=== PATIENT | female | born 1985 | race Caucasian/White ===

== ENCOUNTER 2017-11-15 08:31 | Inpatient (IN) | payer OTHER, SELFPAY ==
[2017-11-15] MEDS ORDERED: EPINEPHrine 1 MG/ML AMP ONE (08:38)
[2017-11-15] MEDS ORDERED: EPINEPHrine 1 MG/10 ML Abboject SYRINGE ONE (08:40)
[2017-11-15] MEDS ORDERED: Dexamethasone 10 MG/ML VIAL ONE (08:42)
[2017-11-15 09:15] LABS: BHCG - Serum Negative (NEGATIVE); Pregs Control Background? CLEAR/WHITE (CLR/WHITE); Pregs Control Bar Appear? YES (CONTROL BAR)
[2017-11-15 09:16] LABS: PTT 26.5 SEC (22.9-36.1); Prothrombin Time 13.2 SEC (12.0-14.7)
[2017-11-15 09:24] LABS: ALT (SGPT) 40 U/L (8-55); AST (SGOT) 88 U/L (5-34); Albumin 2.8 g/dL (3.5-5.0); Alkaline Phosphatase 52 U/L (40-150); Anion Gap 17 mmol/L (10-20); BUN (Urea Nitrogen) 32 mg/dL (7.0-18.7); Bilirubin, Total 0.6 mg/dL (0.2-1.2); Calc. Creatinine Clearance 0 mL/min (70-130); Calcium 7.5 mg/dL (7.8-10.44); Carbon Dioxide 18 mmol/L (22-29); Chloride 102 mmol/L (98-107); Estimated GFR-MDRD 26; Globulin 4.8 g/dL (2.4-3.5); Glucose 139 mg/dL (70-105); Potassium 3.9 mmol/L (3.5-5.1); Protein, Total 7.6 g/dL (6.0-8.3); Sodium 133 mmol/L (136-145)
[2017-11-15 09:37] LABS: Anisocytosis SLIGHT = 6-15 cells (100X) (0-5/hpf); Band 43 % (5-11); Hemoglobin 12.2 g/dL (12.0-16.0); Lymphocytes 24 % (21-51); MDiff Complete? YES; Mean Corpuscular HGB CONC 32.2 g/dL (32.0-36.0); Mean Corpuscular Hemoglobin 29.8 pg (27.0-31.0); Mean Corpuscular Volume 92.6 fl (81.0-99.0); Metamyelocyte 2 % (0-0); Monocytes 2 % (0-10); Neutrophil 28 % (42-75); Ovalocytes SLIGHT = 2-5 cells (100X) (0-1/hpf); PLT Morphology Comment Appears Decreased; Platelet Count 96 thou/uL (130-400); RBC Distribution Width 15.6 % (11.5-14.5); Red Blood Cell (RBC) Count 4.09 mill/uL (4.20-5.40); Reflex for Review?? YES; White Blood Cell (WBC) Count 3.5 thou/uL (4.8-10.8)
--- NOTE | 2017-11-15 09:37 | RAD ---
CHEST 1 VIEW: Date: 11/15/17 HISTORY: Cough. COMPARISON: None. FINDINGS: Lungs are clear. No pneumothorax or effusion. Cardiac silhouette and mediastinal contours within norm al limits. No acute osseous abnormality. IMPRESSION: No acute intrathoracic abnormality. POS: C
[2017-11-15] MEDS ORDERED: Morphine 4 MG/ML VIAL ONE (10:17)
[2017-11-15] MEDS ORDERED: Clindamycin/D5W 900 mg/50 ml Premix Bag ONE (10:40)
[2017-11-15] MEDS ORDERED: Dexmedetomidine 200 MCG/2 ML VIAL ONE ×2 (11:31→11:34)
[2017-11-15] MEDS ORDERED: Midazolam HCl 2 mg/2 ml Vial ONE (11:31)
[2017-11-15] MEDS ORDERED: Fentanyl 100 MCG/2 ML VIAL ONE (11:31)
[2017-11-15] MEDS ORDERED: Lidocaine Viscous Sol 2% 15 ml UD Cup ONE (11:31)
[2017-11-15] MEDS ORDERED: Oxymetazoline HCl 0.05% ( 15 ML ) ONE (11:34)
[2017-11-15] MEDS ORDERED: Lidocaine 2% Jelly 5 ML TUBE ONE (11:36)
--- NOTE | 2017-11-15 11:51 | CT ---
CT NECK SOFT TISSUES: Date: 11/15/17 HISTORY: 32-year-old female with history of tongue swelling. FINDINGS: Contrast enhanced CT of soft tissue neck obtained. There is extensive edema and swelling of the aryepiglottic folds. There is some swelling also seen in the epiglottis. There is some edema and fluid in the anterior soft tissue neck, as well as the subma ndibular and right inframandibular soft tissues surrounding the right submandibular gland and right s ternocleidomastoid muscle and extending inferiorly all the way to the sternal notch. There is some ed margarita also seen in the anterior aspect of the superior mediastinum. IMPRESSION: Edema seen in the aryepiglottic folds and epiglottis, as well as the anterior and right neck. No sign ificant evidence of other masses or lesions seen. POS: [facility]
[2017-11-15] MEDS ORDERED: CCU Electrolyte Replacement 1 EACH IVPB ONE (12:24)
[2017-11-15] MEDS ORDERED: Ondansetron ODT 4 MG TAB PO PRN (12:24)
[2017-11-15] MEDS ORDERED: Ondansetron HCl/PF 4 MG/2 ML Vial IVP PRN (12:24)
[2017-11-15] MEDS ORDERED: Sedation Protocol FS ONE (12:24)
[2017-11-15] MEDS ORDERED: Bisacodyl 10 MG SUPP PR PRN (12:24)
[2017-11-15] MEDS ORDERED: Lacri-Lube Opth Oint 3.5 GM TUBE EA EYE PRN (12:24)
[2017-11-15] MEDS ORDERED: Eucerin (Mineral Oil/Petrolatum,White) 30 gm Jar TOP PRN (12:24)
[2017-11-15] MEDS ORDERED: hydrALAZINE 20 MG/ML VIAL SLOW IVP PRN (12:24)
[2017-11-15] MEDS ORDERED: Magnesium Oxide 400 MG TAB PO PRN ×2 (12:32)
[2017-11-15] MEDS ORDERED: Potassium Phosphate 9 MMOL in Sodium Chloride 0.9% 100 ML IVPB PRN (12:32)
[2017-11-15] MEDS ORDERED: Potassium Phosphate 15 MMOL in Sodium Chloride 0.9% 250 ML 250 ML IV PRN (12:32)
[2017-11-15] MEDS ORDERED: Potassium Chloride 20 MEQ TAB PO PRN (12:32)
[2017-11-15] MEDS ORDERED: CCU ELECTROLYTE REPLACEMENT PROTOCOL FS PRN (12:32)
[2017-11-15] MEDS ORDERED: Potassium Chloride 40 MEQ in Premix Bag 1 BAG IVPB PRN (12:32)
[2017-11-15] MEDS ORDERED: Magnesium 2 GM/NS 0.9% 100 ML 2 GM in Premix Bag 1 BAG IVPB PRN (12:32)
[2017-11-15] MEDS ORDERED: Potassium Phosphate 12 MMOL in Sodium Chloride 0.9% 250 ML 250 ML IV PRN (12:32)
[2017-11-15] MEDS ORDERED: Potassium Chloride 40 MEQ in Sodium Chloride 0.9% 250 ML 250 ML IVPB PRN (12:32)
[2017-11-15] MEDS ORDERED: DISCONTINUE PREVIOUS NARCOTIC PAIN MEDICATIONS AND BENZODIAZEPINES FS SCH (12:33)
[2017-11-15] MEDS ORDERED: Fentanyl CADD 250 ML IVPB SCH (12:33)
[2017-11-15] MEDS ORDERED: Fentanyl BOLUS 250 ML IVPB PRN (12:33)
[2017-11-15] MEDS ORDERED: Morphine 2 MG/ML SYRINGE SLOW IVP PRN (12:37)
[2017-11-15] MEDS ORDERED: Acetaminophen 650 MG/20.3 ML UDCUP PO PRN (12:38)
--- NOTE | 2017-11-15 12:39 | HP ---
DATE OF ADMISSION: 11/15/2017 PRIMARY CARE PHYSICIAN: Dr. Chacon. PRIMARY 3D ARTIST: Dr. Mathew. CHIEF COMPLAINT: Tongue swelling. HISTORY OF PRESENT ILLNESS: Patient is a 32-year-old female with systemic lupus erythematosus on pre dnisone 5 mg daily for the last one and a half months, presented to the emergency room at [facility] ER with above complaints. Over the last one week, the patient has upper respiratory tract infection symptoms. She was started on some antibiotics. She is unable to recall the name. The last dose of antibiotic was yesterday. She was also given some hydrocodone by her primary care physician, which she has taken in the past. Patient had difficulty swallowing the hydrocodone and thought that the pill was stuck in her throat f or which she was evaluated in the emergency room around 1:00 a.m. earlier today. She was discharged home with a diagnosis of pharyngitis and was advised to continue with antibiotics. She returned to [facility] emergency room again with worsening tongue swelling along with some nausea. She denies any fever, chills, or sick contacts. No recent changes in her medications except for antibiotics and hydrocodo ne reported. No similar symptoms in the past. In the emergency room at [place], her initial vital signs showed temperature 97.2, respirations 20, pulse rate of 105, blood pressure of 87/57 with O2 saturation 97% on room air. She received Solu-Med rol 80 mg with Pepcid, Benadryl, and subcutaneous 0.3 mg epinephrine around 4 to 4:30 a.m. and was di scharged home on prednisone. Due to her worsening symptoms, she presented at this facility. Her tem perature on ER arrival was 99.7 with respiration of 24, pulse rate in the 120s to 130s with blood pre ssure of 90/62 with O2 saturation 97% on room air. She was evaluated by Dr. Stout, ENT on an emerge nt basis and the plan is to take her for emergent intubation in the OR. PAST MEDICAL HISTORY: Systemic lupus erythematosus followed by Dr. Mathew. Patient was diagnosed around 1-1/2 months ago. She is currently on prednisone 5 mg a day. PAST SURGICAL HISTORY: Reviewed with the patient and none. ALLERGIES: No known drug allergies. CURRENT HOME MEDICATIONS: Prednisone 5 mg daily. SOCIAL HISTORY: No current use of smoking or drug use. Patient drinks alcohol socially. FAMILY HISTORY: Negative for heart disease or malignancies. REVIEW OF SYSTEMS: Cannot be reliably obtained from the patient due to the emergency physician. Maty guzman is leaving for the OR now. PHYSICAL EXAMINATION: VITAL SIGNS: As discussed above. GENERAL: A 32-year-old female, appropriate for her age, in mild distress due to above. HEENT: Head atraumatic, normocephalic. Sclerae are anicteric. Moist mucous membranes. Oral examin ation currently done by Dr. Stout. NECK: Supple. There is questionable stridor. No JVD. LUNGS: Showed scattered rhonchi. No significant wheezing or rales. HEART: S1, S2 present. Tachycardic, no murmurs, rubs or gallops. ABDOMEN: Soft, nontender, bowel sounds present. EXTREMITIES: No edema or calf tenderness. NEUROLOGIC: Grossly nonfocal, moves all 4 extremities. PSYCHIATRY: Alert, awake, oriented x3. SKIN: Warm and dry. LYMPH NODES: No palpable lymph nodes in the neck. PERIPHERAL VASCULAR: Radial pulses palpable bilaterally. MUSCULOSKELETAL: No joint swelling or tenderness. LABORATORY AND X-RAY FINDINGS: 1. CBC showed WBC 3.5 with hemoglobin 12.2, hematocrit 37.9, platelet count of 96, bandemia of 43. 2. PT, INR, PTT normal range. Lactic acid on admission was 3.9. CRP 6.25, albumin 2.8. test was negative. Sodium was 133, potassium 3.9, chloride 102, bicarbonate 18, BUN 32, creatinine 2 .17. Her creatinine in July was 0.79. 3. Blood cultures have been sent. Please note that the blood cultures were not done before antibiot ics. 4. Chest x-ray by my review was negative for infiltrate. CT of the neck with contrast showed edema of the neck with swelling of the epiglottis and aryepiglottic folds. Official report pending at this time. 5. Telemetry monitoring by my review showed sinus tachycardia. IMPRESSION AND PLAN: 1. Severe upper respiratory tract swelling requiring emergent intubation. Possibilities include inf ectious versus inflammatory. Questionable angioedema. 2. Sepsis with acute organ dysfunction. 3. Acute kidney injury. 4. Metabolic acidosis/lactic acidosis. 5. Mild hyponatremia. 6. Systemic lupus erythematosus, on chronic steroids. 7. Leukopenia. 8. Thrombocytopenia. PLAN: The patient will be monitored in the Intensive Care Unit. She is on her way to OR for emergen t intubation. We will continue steroids with H2 blockers and steroids. Empiric antibiotics. Labs o n a daily basis. Repeat lactic acid later today. Plan of care was discussed with the patient and the at the bedside. Again, the limited histo ry was available due to emergent situation.
--- NOTE | 2017-11-15 12:42 | CON ---
DATE OF CONSULTATION: 11/15/2017 REASON FOR CONSULTATION: Swelling and ecchymosis of the tongue and swelling in her throat. CONSULTING PHYSICIAN: Dr. Sterling, ER physician. HISTORY OF PRESENT ILLNESS: Ms. Otto is a 32-year-old female who was in relatively good health. She had some complaints of upper respiratory tract infection and was evaluated yesterday and given a prescription for medicine, but had not started taking it. Woke up early in the morning with pain in her legs and decided to take hydrocodone that she was given. The hydrocodone pill felt like it got stuck in her throat and continued to be a problem. She presented to the ER in [place] and was evaluated and sent home without any intervention. She went home and continued to have things get worse and started developing swelling of her tongue. She then presented again to the ER who evaluated and gave her a shot of epinephrine and some Solu-Medrol. They felt like she improved and they sent her home again and now she presents to the [facility] ER with worsening symptoms. She is having difficulty swallowing, increased swelling of her tongue and difficulty talking. I was asked to evaluate her for possible angioedema of her airway. She has been recently diagnosed with systemic lupus. She has not had any fever. She has not had any reactions similar to this in the past and has not had any other complaints. Please see her ER note for further details of her past medical history and review of systems, it was reviewed on this date. PHYSICAL EXAMINATION: GENERAL: Well-developed, well-nourished female in moderate distress. HEAD: Normocephalic, atraumatic. EYES: Pupils are equal, round, and reactive to light. Extraocular movements intact. EARS: Tympanic membranes intact, mobile and clear. NOSE: Mucosa is pink and healthy. I did not see any signs of any purulent drainage or infection or obstruction noted. Oral cavity and oropharynx shows extremely ecchymotic and swollen tongue with the right side being greater than left. There is some abrasion on the tongue, probably from rubbing up against her teeth, could not visualize the oropharynx due to the swelling of the tongue. NECK: Without significant adenopathy or mass. Thyroid is palpably normal. LUNGS: Clear to auscultation. HEART: Regular rate without murmur or gallop. Cranial nerves III-XII are intact. Examination of flexible laryngoscope to evaluate the airway, sprayed down the nose with Du-Synephrine, 4% lidocaine. She felt like she was starting to have trouble breathing and started panicking and was able to get her to slow down her breathing and her breathing seemed to improve. I then examined with the flexible laryngoscope, passed through the nose, did not see any evidence of any problems in the nose, nasopharynx looked open and clear, hypopharynx showed extreme amount of ecchymosis and swelling of the epiglottis and supraglottic structures extremely narrowing the airway. The vocal cords were able to be visualized, but the airway was around 0.5 cm in size. All the swelling appeared to be supraglottically . Piriform sinuses showed some ecchymosis and swelling at the base of the tongue, did not appear to be pushed back into the airway. The scope was removed and she tolerated the procedure well. IMPRESSION: Angioedema of the tongue and supraglottic structures with ecchymosis, etiology is not clear whether or not she has just straightforward angioedema or this is a vasculitis or leukemia or possibility of a problem with her lupus. Recommend taking her to the OR and trying to intubate her under controlled circumstances, being prepared to do a tracheostomy if we are unable to secure her airway, then admitted to the ICU for further treatment and workup. LINDA
[2017-11-15] MEDS: Sodium Chloride 0.9% 1,000 ML IV SCH ×3 (12:55→22:19)
[2017-11-15] MEDS: Propofol 1,000 MG/100 ML VIAL IV PRN ×2 (13:05→19:44)
--- NOTE | 2017-11-15 13:09 | OP ---
DATE OF PROCEDURE: 11/15/2017 PREOPERATIVE DIAGNOSIS: Angioedema of the larynx and tongue. POSTOPERATIVE DIAGNOSIS: Angioedema of the larynx and tongue. OPERATIVE PROCEDURE: Endotracheal intubation with a flexible fiberoptic scope. ANESTHESIA: Local MAC. PREOPERATIVE NOTE: Ms. Otto is a 32-year-old female who presented to the ER this morning with difficulty swallowing and breathing, and was found to have a very swollen tongue and on exam, swollen larynx. A CT scan also confirmed swelling and airway appeared to be in jeopardy, although she was not in any acute distress at this time and was opted to take her to the operating room and intubate her before it became worse. OPERATIVE NOTE: The patient placed in a comfortable, supine position with her head elevated. The nose was anesthetized with viscous lidocaine on nasal trumpets. After getting adequate sedative anesthesia, the #6 endotracheal tube was placed through the nose and the scope was passed down through the scope to visualize the airway. Had visualized the swelling of the supraglottic structures and found the vocal cords and went through into the trachea visualizing tracheal rings. The endotracheal tube was then passed over the fiberoptic scope and when the fiberoptic scope was removed, the initial time after removing the scope, the tube did not actually go into the trachea. We then reset and when moved back, she was still doing well without any distress. The scope was passed again and through the vocal cords into the trachea confirmed with tracheal rings and then the tube was then passed through into the trachea, confirmed the endotracheal tube was in the trachea just above the level of elizabeth and the scope was then removed, and the patient was breathing easily, cuff was inflated. She was given some sedation and then transferred to the ICU in stable condition, tolerating the procedure well. ESTIMATED BLOOD LOSS: None. Sponge and needle count correct at the end of the case. MTDD
[2017-11-15 13:40] LABS: Lactic Acid 2.6 mmol/L (0.5-2.2)
[2017-11-15 13:43] LABS: Actual Bicarbonate (HCO3a) 17.7 mEq/L (22-26); Base Excess (BEa) -6.6 mEq/L (0 (+/-) 2.5); CO2 Tension 30.5 mmHg (35.0-45.0); Hematocrit-ABG 29.7 % (36.0-47.0); Hemoglobin (Hb) 9.1 g/dL (12.0-16.0); O2 Tension (PaO2) 147.4 mmHg (80.0-100.0); pH, Arterial 7.38 (7.35-7.45)
[2017-11-15 13:44] LABS: ALV-art Gradient 171.975 (0-20); Puncture Site RBA
[2017-11-15] MEDS: Piperacillin/Tazobactam 3.375 GM in Sodium Chloride 0.9% 100 ML IVPB SCH ×2 (14:48→20:27)
[2017-11-15] MEDS: D5 1/2 NS w/20 mEq KCL 1,000 ML IV SCH ×2 (14:50→22:56)
--- NOTE | 2017-11-15 15:03 | RAD ---
CHEST 1 VIEW: Date: 11/15/17 HISTORY: Tube replacement. COMPARISON: Chest 1 view dated 11/15/17. FINDINGS: Patient is intubated with endotracheal tube tip craniad to the elizabeth 3.0 cm. There is a faint right lower lobe air space opacity and small effusion. Left lung is relatively clear. IMPRESSION: 1. Endotracheal tube tip 3.0 cm craniad to the elizabeth. 2. Small right effusion and air space consolidation. POS: [facility]
[2017-11-15] MEDS: Lorazepam 2 MG/ML VIAL SLOW IVP PRN (16:07)
[2017-11-15] MEDS: Clindamycin/D5W 300 MG/50 ML BAG IVPB SCH ×2 (17:20→23:00)
[2017-11-15] MEDS: diphenhydrAMINE 50 MG/ML VIAL IVP SCH ×2 (18:04→23:00)
[2017-11-15] MEDS ORDERED: Sodium Chloride 0.9% 500 ML IVPB SCH (19:15)
[2017-11-15] MEDS ORDERED: Acetaminophen 1,000 MG in Premix Bag 1 BAG IVPB SCH (19:30)
--- NOTE | 2017-11-15 21:28 | PRG ---
DATE OF SERVICE: 11/15/2017 Ms. Otto is a 32-year-old female. She was seen multiple times in the ER in [place] in the last 24 hours. Initially she presented whic h she calls a pill stuck in her throat and tongue swelling and then she ended up intubated over here with a trip to the operating room with Dr. Stout. She was fiberoptically intubated with a 6 endotracheal tube. We were consulted for assistance in her management. She had significant tongue swelling and upper airway swelling, the etiology is unclear. Apparently, she took an opiate and thought it was stuck in her throat. She was also already on antibiotics and h ad been taking antibiotics for several days, I am told when the symptoms started. PAST MEDICAL HISTORY: Remarkable for recent diagnosis of lupus. She is only on 5 mg of prednisone a day. SOCIAL HISTORY: She is a nonsmoker, nondrinker. ALLERGIES: She has no reported drug allergies. FAMILY HISTORY: Negative for lung disease at an early age. REVIEW OF SYSTEMS: Otherwise, negative. Review of systems is only obtainable via yes and no and her only real complaint was feeling like some food is stuck in her throat and difficulty with tongue swelling. PHYSICAL EXAMINATION: VITAL SIGNS: Heart rate is 120, blood pressure is 95/54, respiratory rate in the 30s. HEENT: Pupils are equal, sclerae is anicteric. NECK: Supple. LUNGS: Clear. HEART: Regular rhythm. S1 and S2 are normal. ABDOMEN: Soft and nontender. EXTREMITIES: Without clubbing, cyanosis, or edema. LABORATORY DATA: White count 3.5, hemoglobin 12.2, platelets 96,000. Sodium 133, potassium 3.9, chl oride 102, bicarbonate 18, BUN 32, creatinine 2.17. AST is 88, ALT is 40, alkaline phosphatase 52. C-reactive protein 6.2, albumin is 2.8. No urinalysis. IMPRESSION: Status post intubation for upper airway edema of unclear etiology. This is an atypical presentation for lupus flare. I do believe a lot of her lab abnormalities can be explained by lupus. Her urine needs to be dipped for protein. She has significant proteinuria. She needs to be worked up for lupus nephritis. She probably will be weanable for a day or two. She will be examined on a daily basis. PLAN: A C3-C4 might be entertained as well as a lupus panel to see if some of this could be lupus re lated. I would think it would be more likely this would be antibiotic related, we are going to ask t he nurse trying to figure out, trying to determine what antibiotic she was taking at home. Critical care time 35 minutes.
[2017-11-15] MEDS: Famotidine/PF 20 mg/2ml Vial SLOW IVP SCH (21:45)
[2017-11-15 22:07] LABS: Bilirubin Small (Negative); Blood, Urine Large (Negative); Clarity CLOUDY (Clear); Glucose, Urine (Dipstick) Negative (Negative); Leukocyte Negative (Negative); Nitrite Negative (Negative); Protein, Urine (Dipstick) 100 mg/dL (Neg-Trace); Specific Gravity, Urine 1.041 (1.002-1.036); pH, Urine 5.5 (5.0-9.0)
[2017-11-16] MEDS: Lorazepam 2 MG/ML VIAL SLOW IVP PRN ×5 (00:33→19:23)
[2017-11-16] MEDS: D5 1/2 NS w/20 mEq KCL 1,000 ML IV SCH (02:37)
[2017-11-16] MEDS: Piperacillin/Tazobactam 3.375 GM in Sodium Chloride 0.9% 100 ML IVPB SCH ×4 (02:37→20:45)
[2017-11-16 04:42] LABS: Band 44 % (5-11); Elliptocytes SLIGHT = 2-5 cells (100X) (0-1/hpf); Hemoglobin 9.8 g/dL (12.0-16.0); Lymphocytes 21 % (21-51); MDiff Complete? YES; Mean Corpuscular HGB CONC 32.5 g/dL (32.0-36.0); Mean Corpuscular Hemoglobin 30.8 pg (27.0-31.0); Mean Corpuscular Volume 94.7 fl (81.0-99.0); Mean Platelet Volume 6.6 fL (7.4-10.4); Neutrophil 35 % (42-75); PLT Morphology Comment Appears Decreased; Platelet Count 71 thou/uL (130-400); RBC Distribution Width 15.4 % (11.5-14.5); Red Blood Cell (RBC) Count 3.18 mill/uL (4.20-5.40)
[2017-11-16 04:58] LABS: ALT (SGPT) 32 U/L (8-55); AST (SGOT) 121 U/L (5-34); Albumin 2.1 g/dL (3.5-5.0); Alkaline Phosphatase 33 U/L (40-150); Anion Gap 15 mmol/L (10-20); BUN (Urea Nitrogen) 35 mg/dL (7.0-18.7); Bilirubin, Total 1.3 mg/dL (0.2-1.2); Calc. Creatinine Clearance 43 mL/min (70-130); Calcium 6.5 mg/dL (7.8-10.44); Carbon Dioxide 15 mmol/L (22-29); Chloride 108 mmol/L (98-107); Estimated GFR-MDRD 27; Globulin 3.5 g/dL (2.4-3.5); Glucose 204 mg/dL (70-105); Magnesium 1.4 mg/dL (1.6-2.6); Phosphorus 4.9 mg/dL (2.3-4.7); Potassium 4.8 mmol/L (3.5-5.1); Protein, Total 5.6 g/dL (6.0-8.3); Sodium 133 mmol/L (136-145)
[2017-11-16 05:14] LABS: Lactic Acid 4.4 mmol/L (0.5-2.2)
[2017-11-16] MEDS: Acetaminophen 650 MG Suppository PR PRN ×3 (05:16→20:30)
[2017-11-16] MEDS: diphenhydrAMINE 50 MG/ML VIAL IVP SCH ×3 (05:16→17:41)
[2017-11-16] MEDS: Clindamycin/D5W 300 MG/50 ML BAG IVPB SCH ×4 (05:17→22:54)
[2017-11-16] MEDS ORDERED: Dextrose 50% Abboject 50 ML SYRINGE SLOW IVP PRN (05:47)
[2017-11-16] MEDS ORDERED: Dextrose 5% in Water 1,000 ML IV PRN (05:47)
[2017-11-16] MEDS: Sodium Chloride 0.9% 1,000 ML IV SCH (07:07)
[2017-11-16 07:11] LABS: Actual Bicarbonate (HCO3a) 14.5 mEq/L (22-26); Base Excess (BEa) -9.7 mEq/L (0 (+/-) 2.5); CO2 Tension 26.1 mmHg (35.0-45.0); Calcium, Ionized 0.9 mmol/L (1.12-1.30); Hematocrit-ABG 28.5 % (36.0-47.0); Hemoglobin (Hb) 8.7 g/dL (12.0-16.0); O2 Tension (PaO2) 86.6 mmHg (80.0-100.0); pH, Arterial 7.36 (7.35-7.45)
[2017-11-16 07:12] LABS: ALV-art Gradient 94.375 (0-20); Puncture Site RBA
[2017-11-16] MEDS: HumaLOG 300 UNITS/3 ML VIAL SC PRN (07:23)
[2017-11-16] MEDS ORDERED: Sodium Bicarbonate 100 MEQ in D5 1/4 NS 1,000 ML IV SCH (08:00)
[2017-11-16] MEDS: Famotidine/PF 20 mg/2ml Vial SLOW IVP SCH ×2 (08:31→20:30)
[2017-11-16] MEDS: Sodium Chloride 0.45% 1,000 ML IV SCH ×2 (09:36→20:45)
--- NOTE | 2017-11-16 10:40 | RAD ---
AP VIEW CHEST: Date: 11/16/17 HISTORY: Ventilator dependent patient. FINDINGS: Comparison made to previous exam from 11/15/17. AP view of chest demonstrates endotracheal tube to be in good position. Some mild areas of patchy den sity seen in the right middle lobe compatible with area of right middle lobe pneumonia. No evidence o f effusion seen. No other acute abnormalities noted. IMPRESSION: Area of patchy air space density in the right middle lobe. Endotracheal tube is in good position. No other acute abnormality seen. POS: [facility]
[2017-11-16] MEDS: Propofol 1,000 MG/100 ML VIAL IV PRN ×2 (11:01→19:23)
[2017-11-16 11:06] LABS: Creatinine, Urine 115.36 mg/dL (47-110)
[2017-11-16 16:59] LABS: Complement-C4 Less than 2.90 mg/dL (15-57)
--- NOTE | 2017-11-16 17:25 | PDOC.EVN ---
Event Note - Event Note Event Note: Discussed case with Dr Mathew. He recommended pulse steroids x 3 days. He will see the patient in AM.
[2017-11-16] MEDS ORDERED: methylPREDNISolone Sod Succ/PF 125 MG/2 ML VIAL IVP SCH (17:30)
[2017-11-16] MEDS: methylPREDNISolone Sod Succ 1,000 MG in Sodium Chloride 0.9% 100 ML IVPB SCH (17:54)
[2017-11-16] MEDS ORDERED: Hydrocortisone Sod Succ/PF 1,000 MG in Sodium Chloride 0.9% 50 ML IVPB SCH (18:00)
--- NOTE | 2017-11-16 20:34 | PDOC.PN ---
- Subjective Encounter Start Date: 11/16/17 Encounter Start Time: 15:30 -: non-verbal Patient seen and examined. On [facility] Vent. No overnight events - Objective Resuscitation Status: Resuscitation Status FULL:Full Resuscitation MAR Reviewed: Yes Vital Signs & Weight: Vital Signs (12 hours) Pulse Resp BP Pulse Ox 11/16/17 18:48 123 H 108/70 11/16/17 18:47 123 H 31 H 99 11/16/17 18:00 34 H 11/16/17 16:58 127 H 32 H 98 11/16/17 16:50 129 H 118/75 11/16/17 16:00 33 H 11/16/17 14:00 32 H 11/16/17 12:33 121 H 98/60 11/16/17 12:00 32 H 11/16/17 10:00 29 H Weight Admit Weight 155 lb 3.287 oz Weight 156 lb 8.451 oz Most Recent Monitor Data Heart Rate from ECG 124 NIBP 97/64 NIBP BP-Mean 76 Respiration from ECG 34 SpO2 99 I&O: 11/15/17 11/16/17 11/17/17 06:59 06:59 06:59 Intake Total 4657 1036 Output Total 1090 537 Balance 3567 499 Result Diagrams: 11/16/17 04:07 11/16/17 04:07 Additional Labs: Accuchecks 11/16/17 11/16/17 11/16/17 16:44 10:18 05:39 POC Glucose 149 H 191 H 217 H 11/16/17 00:25 POC Glucose 182 H Radiology Reviewed by me: Yes (CXR - Rt sided air space densities) EKG Reviewed by me: Yes ([facility]) Dx/Plan - Plan DVT proph w/lovenox, DVT proph w/SCDs IMPRESSION: 1. Angioedema/?Lupus flare 2. Sepsis with acute organ dysfunction. - cultures negative, Resp viral panel negative 3. Acute kidney injury 4. Metabolic acidosis/lactic acidosis. 5. Mild hyponatremia. 6. Systemic lupus erythematosus, on chronic steroids/Leukopenia/ Thrombocytopenia/Proteinuria/Abn LFTs PLAN: * Nephro consulted * AM labs * IV Steroids changed per Dr Mathew * Cont Atbx * Cont H1/H2 blockers * Cont current meds as below Review of Systems - Review of Systems Other: Cannot obtain due to sedation - Medications/Allergies Allergies/Adverse Reactions: Allergies Allergy/AdvReac Type Severity Reaction Status Date / Time No Known Drug Allergies Allergy Verified 11/15/17 16:10 Medications: Current Medications Acetaminophen (Tylenol) 650 mg NM Q4H PRN PRN Reason: Headache/Fever or Pain Last Admin: 11/16/17 20:30 Dose: 650 mg Acetaminophen (Tylenol Elixir) 650 mg PO Q6H PRN PRN Reason: Fever/Mild Pain Albuterol/Ipratropium (Duoneb) 3 ml NEB [id number] [facility] Last Admin: 11/16/17 18:47 Dose: 3 ml Albuterol/Ipratropium (Duoneb) 3 ml NEB [id number] PRN PRN Reason: SOB &/or Wheezing Bisacodyl (Dulcolax) 10 mg NM Q24H PRN PRN Reason: Constipation Clindamycin Phosphate/Dextrose (Cleocin) 300 mg IVPB 0500,1100,1700,2300 [facility] Last Admin: 11/16/17 17:41 Dose: 300 mg Dextrose/Water (Dextrose 50%) 25 gm SLOW IVP PRN PRN PRN Reason: Hypoglycemia Diphenhydramine HCl (Benadryl) 25 mg IVP Q6HR [facility] Last Admin: 11/16/17 17:41 Dose: 25 mg Famotidine (Pepcid) 20 mg SLOW IVP BID [facility] Last Admin: 11/16/17 20:30 Dose: 20 mg Glucagon (Glucagon) 1 mg IM PRN PRN PRN Reason: Hypoglycemia Hydralazine HCl (Apresoline) 10 mg SLOW IVP Q4H PRN PRN Reason: SBP Greater Than 180 Piperacillin Sod/Tazobactam (Sod 3.375 gm/ Sodium Chloride) 100 mls @ 200 mls/ hr IVPB 0200,0800,1400,2000 [facility] Last Admin: 11/16/17 14:54 Dose: 100 mls Potassium Chloride 40 meq/ (Sodium Chloride) 270 mls @ 135 mls/hr IVPB ASDIR PRN PRN Reason: FOR SERUM K+ 2.5 - 3.5 Potassium Chloride 40 meq/ (Device) 100 mls @ 50 mls/hr IVPB ASDIR PRN PRN Reason: FOR SERUM K+ 2.5 - 3.5 Magnesium Sulfate 1 gm/ Sodium (Chloride) 102 mls @ 102 mls/hr IV PRN PRN PRN Reason: MAG LEVEL 1.4 - 2.0 Magnesium Sulfate 2 gm/ Device 100 mls @ 100 mls/hr IVPB ASDIR PRN PRN Reason: MAGNESIUM < 1.4 Potassium Phosphate 9 mmol/ (Sodium Chloride) 103 mls @ 25.75 mls/hr IVPB ASDIR PRN PRN Reason: Phosphate 1.0-1.8 Potassium Phosphate 12 mmol/ (Sodium Chloride) 254 mls @ 63.5 mls/hr IV ASDIR PRN PRN Reason: Serum phosphate 0.5-0.9 Potassium Phosphate 15 mmol/ (Sodium Chloride) 255 mls @ 63.75 mls/hr IV ASDIR PRN PRN Reason: Serum Phos < 0.5 Fentanyl (Fentanyl Cadd) 250 mls @ 0 mls/hr IVPB INF LESLI; Titrate PRN Reason: Protocol Stop: 12/15/17 12:33 Last Admin: 11/16/17 19:39 Dose: 250 mls Fentanyl Citrate (Fentanyl Bolus) 250 mls @ 0 mls/hr IVPB PRN PRN; As Directed PRN Reason: Breakthrough pain Stop: 12/15/17 12:33 Dextrose/Water (D5w) 1,000 mls @ 0 mls/hr IV .Q0M PRN; As Directed PRN Reason: Hypoglycemia Sodium Chloride (1/2 Normal Saline) 1,000 mls @ 75 mls/hr IV .[id number] LESLI Last Admin: 11/16/17 09:36 Dose: 1,000 mls Methylprednisolone Sodium Succinate 1,000 mg/ Sodium Chloride 116 mls @ 232 mls /hr IVPB 1800 LESLI Stop: 11/19/17 18:01 Last Admin: 11/16/17 17:54 Dose: 116 mls Insulin Human Lispro (Humalog) 0 units SC .MILD SLIDING SCALE PRN PRN Reason: Mild Correctional Scale Last Admin: 11/16/17 07:23 Dose: 3 unit Lactulose (Lactulose) 20 gm PO DAILYPRN PRN PRN Reason: Constipation Lorazepam (Ativan) 2 mg SLOW IVP Q2H PRN PRN Reason: Anxiety to achieve Olsen 2-3 Stop: 12/15/17 12:33 Last Admin: 11/16/17 19:23 Dose: 2 mg Magnesium Oxide (Magnesium Oxide) 400 mg PO BIDPRN PRN PRN Reason: FOR SERUM MAG 1.4 - 2.0 Magnesium Oxide (Magnesium Oxide) 800 mg PO PRN PRN PRN Reason: FOR SERUM MAG < 1.4 Mineral Oil/White Petrolatum (Lacri-Lube Ointment) 0 gm EA EYE PRN PRN PRN Reason: Dry Eyes Mineral Oil/White Petrolatum (Eucerin Cream) 0 gm TOP BIDPRN PRN PRN Reason: Dry Skin Miscellaneous Medication (Phos-Nak) 1 pkt PO TIDPRN PRN PRN Reason: FOR PHOS LEVEL 1.0 - 1.8 Miscellaneous Medication (Phos-Nak) 2 pkt PO TIDPRN PRN PRN Reason: FOR PHOS LEVEL 0.5 - 1.0 Morphine Sulfate (Morphine) 2 mg SLOW IVP Q2H PRN PRN Reason: Breakthrough pain Ccu Electrolyte (Replacement Protocol) 0 each FS PRN PRN PRN Reason: FOR ELECTROLYTE REPLACEMENT Ondansetron HCl (Zofran Odt) 4 mg PO Q6H PRN PRN Reason: Nausea/Vomiting Ondansetron HCl (Zofran) 4 mg IVP Q6H PRN PRN Reason: Nausea/Vomiting Pantoprazole Sodium (Protonix) 40 mg PER TUBE 2100 LESLI Last Admin: 11/16/17 20:31 Dose: Not Given Potassium Chloride (K-Dur) 40 meq PO ASDIR PRN PRN Reason: FOR SERUM K+ 2.5 - 3.5 Potassium Chloride (Klor-Con) 40 meq PER TUBE ASDIR PRN PRN Reason: FOR SERUM K+ 2.5-3.5 Propofol (Diprivan) 1,000 mg IV INF PRN; Protocol PRN Reason: TO ACHIEVE OLSEN SCORE 2-3 Stop: 12/15/17 12:33 Last Admin: 11/16/17 19:23 Dose: 1,000 mg Sodium Chloride (Flush - Normal Saline) 10 ml IVF PRN PRN PRN Reason: Saline Flush
[2017-11-16] MEDS ORDERED: Pantoprazole 40 MG GRANULES PACKET PER TUBE SCH (21:00)
--- NOTE | 2017-11-16 23:00 | PRG ---
DATE OF SERVICE: 11/16/2017 SUBJECTIVE: Ms. Otto' tongue swelling appears to be decreasing. I have discussed the above wi th Dr. Stout and he would agree. She still has resting tachycardia. PHYSICAL EXAMINATION: VITAL SIGNS: Blood pressure 108/70, respiratory rate 30, oximetry is 99. LUNGS: Clear. HEART: Regular rhythm. ABDOMEN: Soft. EXTREMITIES: Without asymmetry. Because of resting tachycardia, I think we should order an echocardiogram. Some of this may be because when she awakens, she becomes agitated. I met with her and her mother and answered all their questions today for approximately 20 min utes. LABORATORY DATA: White count 6.9, hemoglobin 9.8, platelets 71,000. Electrolytes: Sodium 133, potassium 4.8, chloride 108, bicarbonate 15, BUN 35, creatinine 2.09, gluc ose 204. Phosphorus was high. Magnesium was low. Bilirubin is 1.3, AST is 121, ALT is 32. Albumin is 2.1. Urinalysis shows some mild proteinuria. PT and PTT are normal yesterday. IMPRESSION: 1. Pancytopenia. I suspect is related lupus. 2. Glossitis versus angioedema. Dr. Pascal found the case report with a lupus flare. I have f ound some articles on glossitis with lupus. She has active sediment in her urine and elevated creati nine. She also has elevated liver enzymes. At 32 years of age, the highest index of suspicion would be that this is all lupus mediated. Dr. Stout will evaluate her tomorrow and evaluate her airway tomorrow. She has a 6-0 endotracheal t ube in, so I would not recommend just cavalierly extuating her. We tried to keep her sedated. We will check an echocardiogram to make sure she does not have evidenc e of pericardial inflammation. The liver enzymes certainly could be related to lupus as well. Imagi ng of her hepatobiliary tree would be reasonable. The ultrasound at bedside tomorrow. Ultrasound im aging of kidneys would also be appropriate that could be done tomorrow. Critical care time 35 minutes, independent of the time spent with the family.
[2017-11-17] MEDS: HumaLOG 300 UNITS/3 ML VIAL SC PRN ×2 (00:12→06:13)
[2017-11-17] MEDS: diphenhydrAMINE 50 MG/ML VIAL IVP SCH ×5 (00:12→23:12)
[2017-11-17] MEDS: Piperacillin/Tazobactam 3.375 GM in Sodium Chloride 0.9% 100 ML IVPB SCH ×4 (02:49→19:36)
--- NOTE | 2017-11-17 03:59 | CON ---
DATE OF CONSULTATION: 11/16/2017 CONSULTING PHYSICIAN: Dr. Valdez REASON FOR CONSULTATION: History of lupus, rule out nephritis. HISTORY OF PRESENT ILLNESS: This is a 32-year-old female with history of lupus on prednisone, came to the hospital with tongue swelling and questionable drug allergy. The patient was on recent antibiotics, not sure which one and planning to check on that. The patient is currently intubated and not able to give a history for me and most of the history was reviewed from the records. The patient had emergent intubation to protect airway and currently seen in ICU. PAST MEDICAL HISTORY: Positive for systemic lupus erythematosus, followed Dr. Mathew, no history of nephritis from the chart. PAST SURGICAL HISTORY: Not known. HOME MEDICATIONS: Prednisone 5 mg p.o. daily. ALLERGIES: No known drug allergies. SOCIAL HISTORY: No smoking, alcohol or drug use, drinking alcohol socially. FAMILY HISTORY: No history of kidney disease. REVIEW OF SYSTEMS: Could not be obtained as the patient is intubated. PHYSICAL EXAMINATION: GENERAL: This is a thin-built female seen in ICU, intubated. VITAL SIGNS: Temperature 98.8, pulse of 120, respiratory 18, blood pressure 98/ 64. HEENT: Intubated. CARDIOVASCULAR: S1, S2 heard. RESPIRATORY: Clear. ABDOMEN: Soft. MUSCULOSKELETAL: No tenderness noted. DERMATOLOGY: No skin rashes. NEUROLOGIC: Intubated and sedated. LABORATORY AND X-RAY FINDINGS: Hemoglobin is 9.8, WBC 6.0, potassium 4.8, BUN 35, creatinine is 2.09. Urine protein around 3 grams of protein. C3 and C4 is low. ASSESSMENT AND PLAN: 1. Acute kidney injury, multifactorial, could be volume depletion. Continue hydration. Lupus flare is also a possibility. I agree with pulse dose steroids for now. C3-C4 is low and she does have significant proteinuria. Need to repeat proteinuria and consider CellCept and prednisone. Agree with rheumatology evaluation. 2. History of lupus. Follow with Rheumatology. Continue with IV fluids. If no significant improvement in renal function with pulse dose steroids and IV fluids, consider CellCept and prednisone. The patient need counseling on the teratogenic effects of CellCept. will consider renal biopsy for classification of lupus once patient is stable. 3. Acidosis- continue IV fluids. on vent. 4. Hyponatremia. 5. Acute respiratory failure. She was intubated for airway protection. 6. Hypoalbuminemia, most likely from proteinuria. 7. 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 Plan is to continue on steroids and follow with Rheumatology for further recommendations. Consider CellCept as tolerated. Thank you for the consultation. Continue hydration, avoid nephrotoxins. Renally dose all the medicines. I will follow the case with you. MTDD
[2017-11-17 04:53] LABS: ALT (SGPT) 32 U/L (8-55); AST (SGOT) 148 U/L (5-34); Albumin 2.2 g/dL (3.5-5.0); Alkaline Phosphatase 37 U/L (40-150); Anion Gap 16 mmol/L (10-20); BUN (Urea Nitrogen) 41 mg/dL (7.0-18.7); Bilirubin, Total 1.7 mg/dL (0.2-1.2); CK (CPK) 3511 U/L (29-168); Calc. Creatinine Clearance 42 mL/min (70-130); Calcium 6.6 mg/dL (7.8-10.44); Carbon Dioxide 15 mmol/L (22-29); Chloride 106 mmol/L (98-107); Estimated GFR-MDRD 26; Glucose 214 mg/dL (70-105); Magnesium 2.7 mg/dL (1.6-2.6); Potassium 4.2 mmol/L (3.5-5.1); Protein, Total 6.2 g/dL (6.0-8.3); Sodium 133 mmol/L (136-145)
[2017-11-17] MEDS: Clindamycin/D5W 300 MG/50 ML BAG IVPB SCH ×4 (05:10→23:07)
[2017-11-17 05:44] LABS: Band 26 % (5-11); Hemoglobin 8.2 g/dL (12.0-16.0); Lymphocytes 34 % (21-51); MDiff Complete? YES; Mean Corpuscular Hemoglobin 29.9 pg (27.0-31.0); Mean Corpuscular Volume 93.3 fl (81.0-99.0); Mean Platelet Volume 11.1 fL (7.4-10.4); Monocytes 4 % (0-10); Neutrophil 36 % (42-75); PLT Morphology Comment Appears Decreased; Platelet Count 87 thou/uL (130-400); RBC Distribution Width 15.6 % (11.5-14.5); Red Blood Cell (RBC) Count 2.74 mill/uL (4.20-5.40); White Blood Cell (WBC) Count 4.8 thou/uL (4.8-10.8)
[2017-11-17] MEDS: Sodium Chloride 0.45% 1,000 ML IV SCH (06:07)
[2017-11-17 07:25] LABS: Actual Bicarbonate (HCO3a) 15.8 mEq/L (22-26); Base Excess (BEa) -8.8 mEq/L (0 (+/-) 2.5); CO2 Tension 29.1 mmHg (35.0-45.0); Calcium, Ionized 0.9 mmol/L (1.12-1.30); Hematocrit-ABG 24.9 % (36.0-47.0); Hemoglobin (Hb) 7.6 g/dL (12.0-16.0); O2 Tension (PaO2) 102.9 mmHg (80.0-100.0); pH, Arterial 7.35 (7.35-7.45)
[2017-11-17 07:27] LABS: ALV-art Gradient 76.725 (0-20); Puncture Site LBA
--- NOTE | 2017-11-17 07:38 | ULT ---
ABDOMINAL ULTRASOUND COMPLETE: Date: 11/16/17 HISTORY: 32-year-old female with lupus erythematosus. FINDINGS: There appears to be some minimal sludge within the gallbladder. No evidence for overt gallstones. The re was some questionable tenderness over the gallbladder with questionable Fernandez's sign. There is a small amount of fluid which appears to be in the left pleural space. Splenomegaly measuring up to 14. 8 cm. No gallstones or gallbladder wall thickening or pericholecystic fluid. Common duct is not dilat ed. The visualized pancreas, IVC, aorta, and both kidneys are unremarkable. There are multiple, 3 hyp erechoic foci and 1 hypoechoic focus within the liver. Statistically, these are most likely benign ca vernous hemangiomas, particularly the hyperechoic foci. The hypoechoic foci is indeterminate. IMPRESSION: Very minimal gallbladder sludge without evidence of gallstones or gallbladder wall thickening. Multip le hyperechoic and several hypoechoic nodular foci within the liver. The hyperechoic foci certainly s uggests benign cavernous hemangioma and the hypoechoic foci are nonspecific and could probably be bet ter evaluated with a follow-up nonemergent abdomen CT scan with liver mass or cavernous hemangioma pr otocol. Minimal splenomegaly. Probably very small left pleural effusion. No evidence for ascites. POS: [facility]
--- NOTE | 2017-11-17 08:01 | PDOC.PULCC ---
CCU Progress Note: Subj/Obj - Subjective Date: 11/17/17 Time: 07:59 Subjective: Not following commands- probably due to current level of sedation needed - Objective Allergies/Adverse Reactions: Allergies Allergy/AdvReac Type Severity Reaction Status Date / Time No Known Drug Allergies Allergy Verified 11/15/17 16:10 Medications: Current Medications Acetaminophen (Tylenol) 650 mg ME Q4H PRN PRN Reason: Headache/Fever or Pain Last Admin: 11/16/17 20:30 Dose: 650 mg Acetaminophen (Tylenol Elixir) 650 mg PO Q6H PRN PRN Reason: Fever/Mild Pain Albuterol/Ipratropium (Duoneb) 3 ml NEB [id number] [facility] Last Admin: 11/17/17 00:12 Dose: 3 ml Albuterol/Ipratropium (Duoneb) 3 ml NEB [id number] PRN PRN Reason: SOB &/or Wheezing Bisacodyl (Dulcolax) 10 mg ME Q24H PRN PRN Reason: Constipation Clindamycin Phosphate/Dextrose (Cleocin) 300 mg IVPB 0500,1100,1700,2300 [facility] Last Admin: 11/17/17 05:10 Dose: 300 mg Dextrose/Water (Dextrose 50%) 25 gm SLOW IVP PRN PRN PRN Reason: Hypoglycemia Diphenhydramine HCl (Benadryl) 25 mg IVP Q6HR [facility] Last Admin: 11/17/17 06:08 Dose: 25 mg Famotidine (Pepcid) 20 mg SLOW IVP BID [facility] Last Admin: 11/16/17 20:30 Dose: 20 mg Glucagon (Glucagon) 1 mg IM PRN PRN PRN Reason: Hypoglycemia Hydralazine HCl (Apresoline) 10 mg SLOW IVP Q4H PRN PRN Reason: SBP Greater Than 180 Piperacillin Sod/Tazobactam (Sod 3.375 gm/ Sodium Chloride) 100 mls @ 200 mls/ hr IVPB 0200,0800,1400,2000 [facility] Last Admin: 11/17/17 07:40 Dose: 100 mls Potassium Chloride 40 meq/ (Sodium Chloride) 270 mls @ 135 mls/hr IVPB ASDIR PRN PRN Reason: FOR SERUM K+ 2.5 - 3.5 Potassium Chloride 40 meq/ (Device) 100 mls @ 50 mls/hr IVPB ASDIR PRN PRN Reason: FOR SERUM K+ 2.5 - 3.5 Magnesium Sulfate 1 gm/ Sodium (Chloride) 102 mls @ 102 mls/hr IV PRN PRN PRN Reason: MAG LEVEL 1.4 - 2.0 Magnesium Sulfate 2 gm/ Device 100 mls @ 100 mls/hr IVPB ASDIR PRN PRN Reason: MAGNESIUM < 1.4 Last Admin: 11/16/17 22:56 Dose: 100 mls Potassium Phosphate 9 mmol/ (Sodium Chloride) 103 mls @ 25.75 mls/hr IVPB ASDIR PRN PRN Reason: Phosphate 1.0-1.8 Potassium Phosphate 12 mmol/ (Sodium Chloride) 254 mls @ 63.5 mls/hr IV ASDIR PRN PRN Reason: Serum phosphate 0.5-0.9 Potassium Phosphate 15 mmol/ (Sodium Chloride) 255 mls @ 63.75 mls/hr IV ASDIR PRN PRN Reason: Serum Phos < 0.5 Fentanyl (Fentanyl Cadd) 250 mls @ 0 mls/hr IVPB INF LESLI; Titrate PRN Reason: Protocol Stop: 12/15/17 12:33 Last Admin: 11/16/17 19:39 Dose: 250 mls Fentanyl Citrate (Fentanyl Bolus) 250 mls @ 0 mls/hr IVPB PRN PRN; As Directed PRN Reason: Breakthrough pain Stop: 12/15/17 12:33 Dextrose/Water (D5w) 1,000 mls @ 0 mls/hr IV .Q0M PRN; As Directed PRN Reason: Hypoglycemia Sodium Chloride (1/2 Normal Saline) 1,000 mls @ 75 mls/hr IV .[id number] [facility] Last Admin: 11/17/17 06:07 Dose: 1,000 mls Methylprednisolone Sodium Succinate 1,000 mg/ Sodium Chloride 116 mls @ 232 mls /hr IVPB 1800 LESLI Stop: 11/19/17 18:01 Last Admin: 11/16/17 17:54 Dose: 116 mls Insulin Human Lispro (Humalog) 0 units SC .MILD SLIDING SCALE PRN PRN Reason: Mild Correctional Scale Last Admin: 11/17/17 06:13 Dose: 3 unit Lactulose (Lactulose) 20 gm PO DAILYPRN PRN PRN Reason: Constipation Lorazepam (Ativan) 2 mg SLOW IVP Q2H PRN PRN Reason: Anxiety to achieve Olsen 2-3 Stop: 12/15/17 12:33 Last Admin: 11/16/17 19:23 Dose: 2 mg Magnesium Oxide (Magnesium Oxide) 400 mg PO BIDPRN PRN PRN Reason: FOR SERUM MAG 1.4 - 2.0 Magnesium Oxide (Magnesium Oxide) 800 mg PO PRN PRN PRN Reason: FOR SERUM MAG < 1.4 Mineral Oil/White Petrolatum (Lacri-Lube Ointment) 0 gm EA EYE PRN PRN PRN Reason: Dry Eyes Mineral Oil/White Petrolatum (Eucerin Cream) 0 gm TOP BIDPRN PRN PRN Reason: Dry Skin Miscellaneous Medication (Phos-Nak) 1 pkt PO TIDPRN PRN PRN Reason: FOR PHOS LEVEL 1.0 - 1.8 Miscellaneous Medication (Phos-Nak) 2 pkt PO TIDPRN PRN PRN Reason: FOR PHOS LEVEL 0.5 - 1.0 Miscellaneous Medication (Pharmacy To Dose) 0 each IVPB ASDIR PRN PRN Reason: Pharmacy to Dose [RENALLY ADJ Morphine Sulfate (Morphine) 2 mg SLOW IVP Q2H PRN PRN Reason: Breakthrough pain Ccu Electrolyte (Replacement Protocol) 0 each FS PRN PRN PRN Reason: FOR ELECTROLYTE REPLACEMENT Ondansetron HCl (Zofran Odt) 4 mg PO Q6H PRN PRN Reason: Nausea/Vomiting Ondansetron HCl (Zofran) 4 mg IVP Q6H PRN PRN Reason: Nausea/Vomiting Pantoprazole Sodium (Protonix) 40 mg PER TUBE 2100 LESLI Last Admin: 11/16/17 20:31 Dose: Not Given Potassium Chloride (K-Dur) 40 meq PO ASDIR PRN PRN Reason: FOR SERUM K+ 2.5 - 3.5 Potassium Chloride (Klor-Con) 40 meq PER TUBE ASDIR PRN PRN Reason: FOR SERUM K+ 2.5-3.5 Propofol (Diprivan) 1,000 mg IV INF PRN; Protocol PRN Reason: TO ACHIEVE OLSEN SCORE 2-3 Stop: 12/15/17 12:33 Last Admin: 11/16/17 19:23 Dose: 1,000 mg Saccharomyces Boulardii (Florastor) 250 mg PER TUBE DAILY [facility] Last Admin: 11/17/17 07:34 Dose: Not Given Sodium Chloride (Flush - Normal Saline) 10 ml IVF PRN PRN PRN Reason: Saline Flush MAR Reviewed: Yes Vital Signs and I&O: Vital Signs Temp 99.2 F 11/17/17 07:04 Pulse 106 H 11/17/17 07:04 Resp 17 11/17/17 07:04 BP 121/73 11/17/17 06:57 Pulse Ox 99 11/17/17 07:04 Intake & Output 11/16/17 11/17/17 11/17/17 18:59 06:59 18:59 Intake Total 1036 1079.6 Output Total 537 565 34 Balance 499 514.6 -34 Weight 156 lb 8.451 oz 163 lb 5.8 oz Intake: Intake, IV Amount 1036 1079.6 Fentanyl 20 MCG/ML 250 ml 23.6 @ Titrate IVPB INF LESLI Rx#:[id number] Propofol 1000 mg (See 121 28 Protocol) IV INF PRN Rx#: [id number] Sodium Chloride 0.45% 1, 915 1028 000 ml @ 75 mls/hr IV . [id number] [facility] Rx#:[id number] Output: Output, Ayoub 537 565 34 Other: Voiding Method Indwelling Catheter Indwelling Catheter Indwelling Catheter Vent Setting: SIMV 12/500/peep5/ps10/30% Spontaneous Breathing Test: not done, vent day (3) Lines (incl Aterial, CVC, PICC+Insertion date): midline r upper arm CCU Progress Note: Exam - Physical Exam Constitutional: NAD HEENT: PERRLA Deviation from normal: swollen tongue, darker on end Neck: no nodes, no JVD Cardiovascular: RRR Respiratory: clear to auscultation anteriorly. Denies: rhonchi, wheezes Gastrointestinal: soft, non-tender, positive bowel sounds Musculoskeletal: no edema Neurological: non-focal, moves all 4 limbs Lymphatic: no nodes Skin: no rash - Labs Result Diagrams: 11/17/17 03:45 11/17/17 03:45 Lab results: Laboratory Results - last 24 hr 11/16/17 11/16/17 11/16/17 09:20 10:18 10:37 WBC RBC Hgb Hct MCV MCH MCHC RDW Plt Count MPV Neutrophils % (Manual) Band Neuts % (Manual) Lymphocytes % (Manual) Monocytes % (Manual) Plt Morphology Comment ESR [place] [id number] Specimen Type Puncture Site Bicarbonate Actual ABG pH ABG pCO2 ABG pO2 ABG O2 Sat Calc/Kat[place] ABG O2 Content ABG Base Excess ABG Hematocrit ABG Hemoglobin ABG Oxyhemoglobin ABG Carboxyhemoglobin ABG Methemoglobin ABG Deoxyhemoglobin Neil Test A-a O2 Gradient Ionized Calcium Mode of Support Mechanical Rate Inspired O2 Tidal Volume Pressure Support PEEP or CPAP Sodium Potassium Chloride Carbon Dioxide Anion Gap BUN Creatinine Estimated GFR (MDRD) Glucose POC Glucose 191 H Lactic Acid Calcium Phosphorus Magnesium Total Bilirubin AST ALT Alkaline Phosphatase Creatine Kinase Serum Total Protein Albumin Globulin Albumin/Globulin Ratio U Random Total Protein 313 Urine Creatinine 115.36 H Complement C3 Complement C4 11/16/17 11/16/17 11/17/17 16:02 16:44 00:06 WBC RBC Hgb Hct MCV MCH MCHC RDW Plt Count MPV Neutrophils % (Manual) Band Neuts % (Manual) Lymphocytes % (Manual) Monocytes % (Manual) Plt Morphology Comment ESR [facility] Specimen Type Puncture Site Bicarbonate Actual ABG pH ABG pCO2 ABG pO2 ABG O2 Sat Calc/Katia ABG O2 Content ABG Base Excess ABG Hematocrit ABG Hemoglobin ABG Oxyhemoglobin ABG Carboxyhemoglobin ABG Methemoglobin ABG Deoxyhemoglobin Neil Test A-a O2 Gradient Ionized Calcium Mode of Support Mechanical Rate Inspired O2 Tidal Volume Pressure Support PEEP or CPAP Sodium Potassium Chloride Carbon Dioxide Anion Gap BUN Creatinine Estimated GFR (MDRD) Glucose POC Glucose 149 H 173 H Lactic Acid Calcium Phosphorus Magnesium Total Bilirubin AST ALT Alkaline Phosphatase Creatine Kinase Serum Total Protein Albumin Globulin Albumin/Globulin Ratio U Random Total Protein Urine Creatinine Complement C3 22.00 L Complement C4 Less than 2.90 L 11/17/17 11/17/17 11/17/17 03:45 03:45 03:45 WBC 4.8 RBC 2.74 L Hgb 8.2 L Hct 25.6 L MCV 93.3 MCH 29.9 MCHC 32.0 RDW 15.6 H Plt Count 87 L MPV 11.1 H Neutrophils % (Manual) 36 L Band Neuts % (Manual) 26 H Lymphocytes % (Manual) 34 Monocytes % (Manual) 4 Plt Morphology Comment Appears Decreased L ESR [place] Specimen Type Puncture Site Bicarbonate Actual ABG pH ABG pCO2 ABG pO2 ABG O2 Sat Calc/Katia ABG O2 Content ABG Base Excess ABG Hematocrit ABG Hemoglobin ABG Oxyhemoglobin ABG Carboxyhemoglobin ABG Methemoglobin ABG Deoxyhemoglobin Neil Test A-a O2 Gradient Ionized Calcium Mode of Support Mechanical Rate Inspired O2 Tidal Volume Pressure Support PEEP or CPAP Sodium 133 L Potassium 4.2 Chloride 106 Carbon Dioxide 15 L Anion Gap 16 BUN 41 H Creatinine 2.16 H Estimated GFR (MDRD) 26 Glucose 214 H POC Glucose Lactic Acid 4.0 H Calcium 6.6 L Phosphorus 6.0 H Magnesium 2.7 H Total Bilirubin 1.7 H AST 148 H ALT 32 Alkaline Phosphatase 37 L Creatine Kinase 3511 H Serum Total Protein 6.2 Albumin 2.2 L Globulin 4.0 H Albumin/Globulin Ratio 0.6 L U Random Total Protein Urine Creatinine Complement C3 Complement C4 11/17/17 11/17/17 03:46 07:05 WBC RBC Hgb Hct MCV MCH MCHC RDW Plt Count MPV Neutrophils % (Manual) Band Neuts % (Manual) Lymphocytes % (Manual) Monocytes % (Manual) Plt Morphology Comment ESR [place] Specimen Type ARTERIAL Puncture Site LBA Bicarbonate Actual 15.8 L ABG pH 7.35 ABG pCO2 29.1 L ABG pO2 102.9 H ABG O2 Sat Calc/Katia 97.9 ABG O2 Content 10.4 L ABG Base Excess -8.8 L ABG Hematocrit 24.9 L ABG Hemoglobin 7.6 L ABG Oxyhemoglobin 96.3 ABG Carboxyhemoglobin 1.0 ABG Methemoglobin 0.6 ABG Deoxyhemoglobin 2.1 Neil Test NOT DONE A-a O2 Gradient 76.725 H Ionized Calcium 0.9 L Mode of Support SIMV/PSV Mechanical Rate 12 Inspired O2 30 Tidal Volume 500 Pressure Support 10 PEEP or CPAP 5.0 Sodium 135 Potassium 4.0 Chloride 105 Carbon Dioxide Anion Gap BUN Creatinine Estimated GFR (MDRD) Glucose POC Glucose 222 H Lactic Acid Calcium Phosphorus Magnesium Total Bilirubin AST ALT Alkaline Phosphatase Creatine Kinase Serum Total Protein Albumin Globulin Albumin/Globulin Ratio U Random Total Protein Urine Creatinine Complement C3 Complement C4 CCU Progress Note: A/P - Problems (1) Systemic lupus erythematosus Current Visit: Yes Status: Acute Code(s): M32.9 - SYSTEMIC LUPUS ERYTHEMATOSUS, UNSPECIFIED Qualifiers: Systemic lupus erythematosus organ involvement: other Assessment and Plan: continue high dose steroids. Rheum consulted by IM (2) Acute respiratory failure Current Visit: Yes Status: Acute Code(s): J96.00 - ACUTE RESPIRATORY FAILURE , UNSP W HYPOXIA OR HYPERCAPNIA Assessment and Plan: Due to tongue swelling. Not weanable until cleared by ENT (3) Thrombocytopenia Current Visit: Yes Status: Acute Code(s): D69.6 - THROMBOCYTOPENIA, UNSPECIFIED Assessment and Plan: Likely due to SLE (4) Anemia Current Visit: Yes Status: Acute Code(s): D64.9 - ANEMIA, UNSPECIFIED Assessment and Plan: due to lupus (5) Acute renal failure (ARF) Current Visit: Yes Status: Acute Assessment and Plan: due to lupus - Time Spent with Patient Time: 30 min CC time - Plan Plan: Not weanable until tongue swelling goes down Continue high dose steroids consider NGT for tube feeds
[2017-11-17] MEDS: Famotidine/PF 20 mg/2ml Vial SLOW IVP SCH ×2 (08:12→21:46)
[2017-11-17] MEDS ORDERED: Saccharomyces boulardii 250 MG CAP PER TUBE SCH (09:00)
[2017-11-17] MEDS ORDERED: methylPREDNISolone Sod Succ/PF 125 MG/2 ML VIAL IVP SCH ×2 (09:00→18:00)
[2017-11-17] MEDS ORDERED: Pantoprazole 40 MG GRANULES PACKET PER TUBE SCH (09:00)
--- NOTE | 2017-11-17 10:40 | RAD ---
AP VIEW CHEST: Date: 11/17/17 HISTORY: Ventilator dependent patient. FINDINGS: Comparison made to previous exam from 11/16/17. AP view of chest demonstrates the patient to be intubated. The lungs are otherwise unremarkable. No e vidence of acute intrathoracic abnormality seen. No evidence of effusions, pneumonia, or pneumothorax seen. IMPRESSION: Intubated patient without evidence of acute intrathoracic abnormality seen. POS: [facility]
[2017-11-17] MEDS: methylPREDNISolone Sod Succ 1,000 MG in Sodium Chloride 0.9% 100 ML IVPB SCH (18:18)
[2017-11-17] MEDS: methylPREDNISolone Sod Succ 1,000 MG in Sodium Chloride 0.9% 250 ML 250 ML IVPB SCH (18:42)
[2017-11-17] MEDS: Acetaminophen 650 MG Suppository PR PRN (19:35)
--- NOTE | 2017-11-17 20:13 | PDOC.PN ---
- Subjective Encounter Start Date: 11/17/17 Encounter Start Time: 13:30 -: non-verbal Patient seen and examined. On [facility] Vent. No overnight events - Objective Resuscitation Status: Resuscitation Status FULL:Full Resuscitation MAR Reviewed: Yes Vital Signs & Weight: Vital Signs (12 hours) Temp Pulse Resp BP Pulse Ox 11/17/17 18:58 126 H 21 H 127/80 98 11/17/17 18:00 20 11/17/17 16:39 134 H 124/79 11/17/17 16:00 99.8 F H 20 11/17/17 15:14 113 H 115/78 11/17/17 15:13 120 H 21 H 100 11/17/17 14:00 15 11/17/17 12:00 98.9 F 19 11/17/17 10:00 22 H 11/17/17 09:02 102 H 17 100 Weight Admit Weight 155 lb 3.287 oz Weight 163 lb 5.8 oz Most Recent Monitor Data Heart Rate from ECG 137 NIBP 124/78 NIBP BP-Mean 90 Respiration from ECG 20 SpO2 97 I&O: 11/16/17 11/17/17 11/18/17 06:59 06:59 06:59 Intake Total 4657 2115.6 923 Output Total 1090 1102 745 Balance 3567 1013.6 178 Result Diagrams: 11/18/17 04:37 11/18/17 04:37 Additional Labs: Accuchecks 11/17/17 11/17/17 11/17/17 16:23 10:04 03:46 POC Glucose 123 H 121 H 222 H 11/17/17 00:06 POC Glucose 173 H EKG Reviewed by me: Yes (Tele SR) Phys Exam - Physical Examination Intubated on Vent Respiratory: no wheezing, no rhonchi Cardiovascular: RRR, no rub Gastrointestinal: soft, non-tender, positive bowel sounds Musculoskeletal: no edema Dx/Plan - Plan DVT proph w/SCDs IMPRESSION: 1. Angioedema/?Lupus flare - on Pulse dose steroids 2. Sepsis with acute organ dysfunction. - cultures negative 3. Acute kidney injury - ?Lupus nephropathy 4. Metabolic acidosis/lactic acidosis. 5. Rhabdomyolysis 6. Systemic lupus erythematosus, on chronic steroids/Leukopenia/ Thrombocytopenia/Proteinuria/Abn LFTs/Mild hyponatremia. PLAN: * Nephro consulted * AM labs * IV Steroids per Dr Mathew * Cont Atbx * Cont H1/H2 blockers * Cont current meds as below * Change Steroids to 40 mg Q6 after pulse steroids - Case d/w Rheumatology Laboratory Tests 11/17/17 03:45 Creatine Kinase 3511 H Review of Systems - Review of Systems Respiratory: negative: Cough, Dry, Shortness of Breath, Hemoptysis, SOB with Excertion, Pleuritic Pain, Sputum, Wheezing Cardiovascular: negative: chest pain, palpitations, orthopnea, paroxysmal nocturnal dyspnea, edema, light headedness - Medications/Allergies Allergies/Adverse Reactions: Allergies Allergy/AdvReac Type Severity Reaction Status Date / Time No Known Drug Allergies Allergy Verified 11/15/17 16:10 Medications: Current Medications Acetaminophen (Tylenol) 650 mg IA Q4H PRN PRN Reason: Headache/Fever or Pain Last Admin: 11/17/17 19:35 Dose: 650 mg Acetaminophen (Tylenol Elixir) 650 mg PO Q6H PRN PRN Reason: Fever/Mild Pain Albuterol/Ipratropium (Duoneb) 3 ml NEB [id number] [facility]ESLI Last Admin: 11/17/17 18:58 Dose: 3 ml Albuterol/Ipratropium (Duoneb) 3 ml NEB [id number] PRN PRN Reason: SOB &/or Wheezing Bisacodyl (Dulcolax) 10 mg IA Q24H PRN PRN Reason: Constipation Clindamycin Phosphate/Dextrose (Cleocin) 300 mg IVPB 0500,1100,1700,2300 [facility] Last Admin: 11/17/17 16:23 Dose: 300 mg Dextrose/Water (Dextrose 50%) 25 gm SLOW IVP PRN PRN PRN Reason: Hypoglycemia Diphenhydramine HCl (Benadryl) 25 mg IVP Q6HR [facility] Last Admin: 11/17/17 18:04 Dose: 25 mg Famotidine (Pepcid) 20 mg SLOW IVP BID [facility] Last Admin: 11/17/17 08:12 Dose: 20 mg Glucagon (Glucagon) 1 mg IM PRN PRN PRN Reason: Hypoglycemia Hydralazine HCl (Apresoline) 10 mg SLOW IVP Q4H PRN PRN Reason: SBP Greater Than 180 Piperacillin Sod/Tazobactam (Sod 3.375 gm/ Sodium Chloride) 100 mls @ 200 mls/ hr IVPB 0200,0800,1400,2000 [facility] Last Admin: 11/17/17 19:36 Dose: 100 mls Potassium Chloride 40 meq/ (Sodium Chloride) 270 mls @ 135 mls/hr IVPB ASDIR PRN PRN Reason: FOR SERUM K+ 2.5 - 3.5 Potassium Chloride 40 meq/ (Device) 100 mls @ 50 mls/hr IVPB ASDIR PRN PRN Reason: FOR SERUM K+ 2.5 - 3.5 Magnesium Sulfate 1 gm/ Sodium (Chloride) 102 mls @ 102 mls/hr IV PRN PRN PRN Reason: MAG LEVEL 1.4 - 2.0 Magnesium Sulfate 2 gm/ Device 100 mls @ 100 mls/hr IVPB ASDIR PRN PRN Reason: MAGNESIUM < 1.4 Last Admin: 11/16/17 22:56 Dose: 100 mls Potassium Phosphate 9 mmol/ (Sodium Chloride) 103 mls @ 25.75 mls/hr IVPB ASDIR PRN PRN Reason: Phosphate 1.0-1.8 Potassium Phosphate 12 mmol/ (Sodium Chloride) 254 mls @ 63.5 mls/hr IV ASDIR PRN PRN Reason: Serum phosphate 0.5-0.9 Potassium Phosphate 15 mmol/ (Sodium Chloride) 255 mls @ 63.75 mls/hr IV ASDIR PRN PRN Reason: Serum Phos < 0.5 Fentanyl (Fentanyl Cadd) 250 mls @ 0 mls/hr IVPB INF LESLI; Titrate PRN Reason: Protocol Stop: 12/15/17 12:33 Last Admin: 11/16/17 19:39 Dose: 250 mls Fentanyl Citrate (Fentanyl Bolus) 250 mls @ 0 mls/hr IVPB PRN PRN; As Directed PRN Reason: Breakthrough pain Stop: 12/15/17 12:33 Dextrose/Water (D5w) 1,000 mls @ 0 mls/hr IV .Q0M PRN; As Directed PRN Reason: Hypoglycemia Sodium Chloride (1/2 Normal Saline) 1,000 mls @ 75 mls/hr IV .[id number] [facility] Last Admin: 11/17/17 06:07 Dose: 1,000 mls Methylprednisolone Sodium Succinate 1,000 mg/ Sodium Chloride 266 mls @ 532 mls /hr IVPB 1800 [facility] Stop: 11/19/17 18:01 Last Admin: 11/17/17 18:42 Dose: 266 mls Insulin Human Lispro (Humalog) 0 units SC .MILD SLIDING SCALE PRN PRN Reason: Mild Correctional Scale Last Admin: 11/17/17 06:13 Dose: 3 unit Lactulose (Lactulose) 20 gm PO DAILYPRN PRN PRN Reason: Constipation Lorazepam (Ativan) 2 mg SLOW IVP Q2H PRN PRN Reason: Anxiety to achieve [place] 2-3 Stop: 12/15/17 12:33 Last Admin: 11/16/17 19:23 Dose: 2 mg Magnesium Oxide (Magnesium Oxide) 400 mg PO BIDPRN PRN PRN Reason: FOR SERUM MAG 1.4 - 2.0 Magnesium Oxide (Magnesium Oxide) 800 mg PO PRN PRN PRN Reason: FOR SERUM MAG < 1.4 Mineral Oil/White Petrolatum (Lacri-Lube Ointment) 0 gm EA EYE PRN PRN PRN Reason: Dry Eyes Mineral Oil/White Petrolatum (Eucerin Cream) 0 gm TOP BIDPRN PRN PRN Reason: Dry Skin Miscellaneous Medication (Phos-Nak) 1 pkt PO TIDPRN PRN PRN Reason: FOR PHOS LEVEL 1.0 - 1.8 Miscellaneous Medication (Phos-Nak) 2 pkt PO TIDPRN PRN PRN Reason: FOR PHOS LEVEL 0.5 - 1.0 Miscellaneous Medication (Pharmacy To Dose) 0 each IVPB ASDIR PRN PRN Reason: Pharmacy to Dose [RENALLY ADJ Morphine Sulfate (Morphine) 2 mg SLOW IVP Q2H PRN PRN Reason: Breakthrough pain Ccu Electrolyte (Replacement Protocol) 0 each FS PRN PRN PRN Reason: FOR ELECTROLYTE REPLACEMENT Ondansetron HCl (Zofran Odt) 4 mg PO Q6H PRN PRN Reason: Nausea/Vomiting Ondansetron HCl (Zofran) 4 mg IVP Q6H PRN PRN Reason: Nausea/Vomiting Potassium Chloride (K-Dur) 40 meq PO ASDIR PRN PRN Reason: FOR SERUM K+ 2.5 - 3.5 Potassium Chloride (Klor-Con) 40 meq PER TUBE ASDIR PRN PRN Reason: FOR SERUM K+ 2.5-3.5 Propofol (Diprivan) 1,000 mg IV INF PRN; Protocol PRN Reason: TO ACHIEVE [place] SCORE 2-3 Stop: 12/15/17 12:33 Last Admin: 11/16/17 19:23 Dose: 1,000 mg Sodium Chloride (Flush - Normal Saline) 10 ml IVF PRN PRN PRN Reason: Saline Flush
--- NOTE | 2017-11-17 23:44 | PRG ---
DATE OF SERVICE: 11/17/2017 SUBJECTIVE: The patient was seen and examined at bedside, family at the bedside. This patient remai ns intubated and she was minimally responsive. OBJECTIVE: GENERAL: Seen in ICU, intubated. VITAL SIGNS: Temperature 99.8, pulse 126, respiratory rate 21, blood pressure 127/80. HEENT: Intubated. CARDIOVASCULAR: S1, S2 heard. Rate and rhythm regular. RESPIRATORY: Clear. GASTROINTESTINAL: Abdomen is soft. MUSCULOSKELETAL: 1+ edema. DERMATOLOGIC: No skin rash. NEUROLOGIC: Intubated, but responding. LABORATORY DATA: Sodium is 133, potassium is 4.2, BUN is 41, creatinine is 2.1. ASSESSMENT AND PLAN: 1. Acute kidney injury, most likely a combination of lupus flare and volume depletion, hydration as tolerated. Continue on pulse dose steroids, possibly need a renal biopsy once stable. 2. History of lupus. 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 3. Acidosis. 4. Hyponatremia. 5. Acute hypoxic respiratory failure. 6. Hypoalbuminemia. 7. 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 We will follow.
[2017-11-18] MEDS: Piperacillin/Tazobactam 3.375 GM in Sodium Chloride 0.9% 100 ML IVPB SCH ×4 (02:35→20:39)
[2017-11-18] MEDS: Sodium Chloride 0.45% 1,000 ML IV SCH ×2 (04:48→22:14)
[2017-11-18] MEDS: Clindamycin/D5W 300 MG/50 ML BAG IVPB SCH ×4 (04:49→22:07)
[2017-11-18] MEDS: HumaLOG 300 UNITS/3 ML VIAL SC PRN ×2 (04:49→23:26)
[2017-11-18 05:42] LABS: Hemoglobin 6.3 g/dL (12.0-16.0); Mean Corpuscular HGB CONC 33.1 g/dL (32.0-36.0); Mean Corpuscular Hemoglobin 30.3 pg (27.0-31.0); Mean Corpuscular Volume 91.3 fl (81.0-99.0); Platelet Count 71 thou/uL (130-400); RBC Distribution Width 15.4 % (11.5-14.5); Red Blood Cell (RBC) Count 2.09 mill/uL (4.20-5.40); White Blood Cell (WBC) Count 5.2 thou/uL (4.8-10.8)
[2017-11-18 05:43] LABS: Anisocytosis SLIGHT = 6-15 cells (100X) (0-5/hpf); Band 14 % (5-11); Hypochromia SLIGHT = 6-15 cells (100X) (0-5/hpf); Lymphocytes 10 % (21-51); MDiff Complete? YES; Monocytes 8 % (0-10); Neutrophil 68 % (42-75); PLT Morphology Comment Appears Decreased; Poikilocytosis SLIGHT = 6-15 cells (100X) (0-5/hpf); Reflex for Review?? NO; Toxic Granulation SLIGHT
[2017-11-18 05:45] LABS: ALT (SGPT) 28 U/L (8-55); AST (SGOT) 108 U/L (5-34); Albumin 2.1 g/dL (3.5-5.0); Alkaline Phosphatase 36 U/L (40-150); Anion Gap 12 mmol/L (10-20); BUN (Urea Nitrogen) 39 mg/dL (7.0-18.7); Bilirubin, Total 1.2 mg/dL (0.2-1.2); CK (CPK) 1698 U/L (29-168); Calc. Creatinine Clearance 46 mL/min (70-130); Calcium 6.8 mg/dL (7.8-10.44); Carbon Dioxide 18 mmol/L (22-29); Chloride 109 mmol/L (98-107); Estimated GFR-MDRD 28; Globulin 4.1 g/dL (2.4-3.5); Glucose 166 mg/dL (70-105); Magnesium 2.8 mg/dL (1.6-2.6); Phosphorus 4.6 mg/dL (2.3-4.7); Potassium 3.8 mmol/L (3.5-5.1); Protein, Total 6.2 g/dL (6.0-8.3); Sodium 135 mmol/L (136-145)
[2017-11-18] MEDS: diphenhydrAMINE 50 MG/ML VIAL IVP SCH ×4 (06:05→22:07)
[2017-11-18 06:58] LABS: ALV-art Gradient 74.675 (0-20); Base Excess (BEa) -7.3 mEq/L (0 (+/-) 2.5); CO2 Tension 28.9 mmHg (35.0-45.0); Hematocrit-ABG 20.8 % (36.0-47.0); Hemoglobin (Hb) 6.3 g/dL (12.0-16.0); O2 Tension (PaO2) 103.4 mmHg (80.0-100.0); Puncture Site LBA; pH, Arterial 7.39 (7.35-7.45)
--- NOTE | 2017-11-18 07:26 | PDOC.PULCC ---
CCU Progress Note: Subj/Obj - Subjective Date: 11/18/17 Time: 07:25 - Objective Allergies/Adverse Reactions: Allergies Allergy/AdvReac Type Severity Reaction Status Date / Time No Known Drug Allergies Allergy Verified 11/15/17 16:10 Medications: Current Medications Acetaminophen (Tylenol) 650 mg [place] Q4H PRN PRN Reason: Headache/Fever or Pain Last Admin: 11/17/17 19:35 Dose: 650 mg Acetaminophen (Tylenol Elixir) 650 mg PO Q6H PRN PRN Reason: Fever/Mild Pain Albuterol/Ipratropium (Duoneb) 3 ml NEB [id number] [facility] Last Admin: 11/18/17 00:08 Dose: 3 ml Albuterol/Ipratropium (Duoneb) 3 ml NEB [id number] PRN PRN Reason: SOB &/or Wheezing Bisacodyl (Dulcolax) 10 mg [place] Q24H PRN PRN Reason: Constipation Clindamycin Phosphate/Dextrose (Cleocin) 300 mg IVPB 0500,1100,1700,2300 [facility] Last Admin: 11/18/17 04:49 Dose: 300 mg Dextrose/Water (Dextrose 50%) 25 gm SLOW IVP PRN PRN PRN Reason: Hypoglycemia Diphenhydramine HCl (Benadryl) 25 mg IVP Q6HR [facility] Last Admin: 11/18/17 06:05 Dose: 25 mg Famotidine (Pepcid) 20 mg SLOW IVP BID [facility] Last Admin: 11/17/17 21:46 Dose: 20 mg Glucagon (Glucagon) 1 mg IM PRN PRN PRN Reason: Hypoglycemia Hydralazine HCl (Apresoline) 10 mg SLOW IVP Q4H PRN PRN Reason: SBP Greater Than 180 Piperacillin Sod/Tazobactam (Sod 3.375 gm/ Sodium Chloride) 100 mls @ 200 mls/ hr IVPB 0200,0800,1400,2000 [facility] Last Admin: 11/18/17 02:35 Dose: 100 mls Potassium Chloride 40 meq/ (Sodium Chloride) 270 mls @ 135 mls/hr IVPB ASDIR PRN PRN Reason: FOR SERUM K+ 2.5 - 3.5 Potassium Chloride 40 meq/ (Device) 100 mls @ 50 mls/hr IVPB ASDIR PRN PRN Reason: FOR SERUM K+ 2.5 - 3.5 Magnesium Sulfate 1 gm/ Sodium (Chloride) 102 mls @ 102 mls/hr IV PRN PRN PRN Reason: MAG LEVEL 1.4 - 2.0 Magnesium Sulfate 2 gm/ Device 100 mls @ 100 mls/hr IVPB ASDIR PRN PRN Reason: MAGNESIUM < 1.4 Last Admin: 11/16/17 22:56 Dose: 100 mls Potassium Phosphate 9 mmol/ (Sodium Chloride) 103 mls @ 25.75 mls/hr IVPB ASDIR PRN PRN Reason: Phosphate 1.0-1.8 Potassium Phosphate 12 mmol/ (Sodium Chloride) 254 mls @ 63.5 mls/hr IV ASDIR PRN PRN Reason: Serum phosphate 0.5-0.9 Potassium Phosphate 15 mmol/ (Sodium Chloride) 255 mls @ 63.75 mls/hr IV ASDIR PRN PRN Reason: Serum Phos < 0.5 Fentanyl (Fentanyl Cadd) 250 mls @ 0 mls/hr IVPB INF [facility]; Titrate PRN Reason: Protocol Stop: 12/15/17 12:33 Last Admin: 11/16/17 19:39 Dose: 250 mls Fentanyl Citrate (Fentanyl Bolus) 250 mls @ 0 mls/hr IVPB PRN PRN; As Directed PRN Reason: Breakthrough pain Stop: 12/15/17 12:33 Dextrose/Water (D5w) 1,000 mls @ 0 mls/hr IV .Q0M PRN; As Directed PRN Reason: Hypoglycemia Sodium Chloride (1/2 Normal Saline) 1,000 mls @ 75 mls/hr IV .[id number] [facility] Last Admin: 11/18/17 04:48 Dose: 1,000 mls Methylprednisolone Sodium Succinate 1,000 mg/ Sodium Chloride 266 mls @ 532 mls /hr IVPB 1800 [facility] Stop: 11/19/17 18:01 Last Admin: 11/17/17 18:42 Dose: 266 mls Insulin Human Lispro (Humalog) 0 units SC .MILD SLIDING SCALE PRN PRN Reason: Mild Correctional Scale Last Admin: 11/18/17 04:49 Dose: 2 unit Lactulose (Lactulose) 20 gm PO DAILYPRN PRN PRN Reason: Constipation Lorazepam (Ativan) 2 mg SLOW IVP Q2H PRN PRN Reason: Anxiety to achieve [place] 2-3 Stop: 12/15/17 12:33 Last Admin: 11/16/17 19:23 Dose: 2 mg Magnesium Oxide (Magnesium Oxide) 400 mg PO BIDPRN PRN PRN Reason: FOR SERUM MAG 1.4 - 2.0 Magnesium Oxide (Magnesium Oxide) 800 mg PO PRN PRN PRN Reason: FOR SERUM MAG < 1.4 Mineral Oil/White Petrolatum (Lacri-Lube Ointment) 0 gm EA EYE PRN PRN PRN Reason: Dry Eyes Mineral Oil/White Petrolatum (Eucerin Cream) 0 gm TOP BIDPRN PRN PRN Reason: Dry Skin Miscellaneous Medication (Phos-Nak) 1 pkt PO TIDPRN PRN PRN Reason: FOR PHOS LEVEL 1.0 - 1.8 Miscellaneous Medication (Phos-Nak) 2 pkt PO TIDPRN PRN PRN Reason: FOR PHOS LEVEL 0.5 - 1.0 Miscellaneous Medication (Pharmacy To Dose) 0 each IVPB ASDIR PRN PRN Reason: Pharmacy to Dose [RENALLY ADJ Morphine Sulfate (Morphine) 2 mg SLOW IVP Q2H PRN PRN Reason: Breakthrough pain Ccu Electrolyte (Replacement Protocol) 0 each FS PRN PRN PRN Reason: FOR ELECTROLYTE REPLACEMENT Ondansetron HCl (Zofran Odt) 4 mg PO Q6H PRN PRN Reason: Nausea/Vomiting Ondansetron HCl (Zofran) 4 mg IVP Q6H PRN PRN Reason: Nausea/Vomiting Potassium Chloride (K-Dur) 40 meq PO ASDIR PRN PRN Reason: FOR SERUM K+ 2.5 - 3.5 Potassium Chloride (Klor-Con) 40 meq PER TUBE ASDIR PRN PRN Reason: FOR SERUM K+ 2.5-3.5 Propofol (Diprivan) 1,000 mg IV INF PRN; Protocol PRN Reason: TO ACHIEVE [place] SCORE 2-3 Stop: 12/15/17 12:33 Last Admin: 11/16/17 19:23 Dose: 1,000 mg Sodium Chloride (Flush - Normal Saline) 10 ml IVF PRN PRN PRN Reason: Saline Flush MAR Reviewed: Yes Vital Signs and I&O: Vital Signs Temp 98.0 F 11/18/17 04:00 Pulse 110 H 11/18/17 02:30 Resp 16 11/18/17 04:00 BP 121/76 11/18/17 02:30 Pulse Ox 98 11/18/17 00:08 Intake & Output 11/17/17 11/18/17 11/18/17 18:59 06:59 18:59 Intake Total 923 Output Total 745 645 Balance 178 -645 Intake: Intake, IV Amount 923 Fentanyl 20 MCG/ML 250 ml 13 @ Titrate IVPB INF [facility] Rx#:[id number] Sodium Chloride 0.45% 1, 910 000 ml @ 75 mls/hr IV . [id number] [facility] Rx#:[id number] Output: Output, Ayoub 745 645 Other: Voiding Method Indwelling Catheter Indwelling Catheter Vent Setting: simv/14/500/peep5/ps10//30% Spontaneous Breathing Test: done CCU Progress Note: Exam - Physical Exam HEENT: PERRLA, sclera anicteric Deviation from normal: tongue dry, less swollen Neck: no nodes, no JVD, supple Cardiovascular: RRR, no significant murmur, no rub Respiratory: clear to auscultation anteriorly Gastrointestinal: soft, non-tender, positive bowel sounds Musculoskeletal: no edema Neurological: non-focal Lymphatic: no nodes Skin: no rash - Labs Result Diagrams: 11/18/17 04:37 11/18/17 04:37 Lab results: Laboratory Results - last 24 hr 11/17/17 11/17/17 11/17/17 07:05 10:04 16:23 WBC RBC Hgb Hct MCV MCH MCHC RDW Plt Count MPV Neutrophils % (Manual) Band Neuts % (Manual) Lymphocytes % (Manual) Monocytes % (Manual) Hypochromia Toxic Granulation Plt Morphology Comment Poikilocytosis Anisocytosis Specimen Type ARTERIAL Puncture Site LBA Bicarbonate Actual 15.8 L ABG pH 7.35 ABG pCO2 29.1 L ABG pO2 102.9 H ABG O2 Sat Calc/Katia 97.9 ABG O2 Content 10.4 L ABG Base Excess -8.8 L ABG Hematocrit 24.9 L ABG Hemoglobin 7.6 L ABG Oxyhemoglobin 96.3 ABG Carboxyhemoglobin 1.0 ABG Methemoglobin 0.6 ABG Deoxyhemoglobin 2.1 Neil Test NOT DONE A-a O2 Gradient 76.725 H Sodium 135 Potassium 4.0 Chloride 105 Ionized Calcium 0.9 L Mode of Support SIMV/PSV Mechanical Rate 12 Inspired O2 30 Tidal Volume 500 Pressure Support 10 PEEP or CPAP 5.0 Carbon Dioxide Anion Gap BUN Creatinine Estimated GFR (MDRD) Glucose POC Glucose 121 H 123 H Calcium Phosphorus Magnesium Total Bilirubin AST ALT Alkaline Phosphatase Creatine Kinase Serum Total Protein Albumin Globulin Albumin/Globulin Ratio 11/17/17 11/18/17 11/18/17 23:18 04:37 04:37 WBC 5.2 RBC 2.09 L Hgb 6.3 L Hct 19.1 L MCV 91.3 MCH 30.3 MCHC 33.1 RDW 15.4 H Plt Count 71 L MPV 11.0 H Neutrophils % (Manual) 68 Band Neuts % (Manual) 14 H Lymphocytes % (Manual) 10 L Monocytes % (Manual) 8 Hypochromia SLIGHT = 6-15 cells Toxic Granulation SLIGHT Plt Morphology Comment Appears Decreased L Poikilocytosis SLIGHT = 6-15 cells Anisocytosis SLIGHT = 6-15 cells Specimen Type Puncture Site Bicarbonate Actual ABG pH ABG pCO2 ABG pO2 ABG O2 Sat Calc/Katia ABG O2 Content ABG Base Excess ABG Hematocrit ABG Hemoglobin ABG Oxyhemoglobin ABG Carboxyhemoglobin ABG Methemoglobin ABG Deoxyhemoglobin Neil Test A-a O2 Gradient Sodium 135 L Potassium 3.8 Chloride 109 H Ionized Calcium Mode of Support Mechanical Rate Inspired O2 Tidal Volume Pressure Support PEEP or CPAP Carbon Dioxide 18 L Anion Gap 12 BUN 39 H Creatinine 2.04 H Estimated GFR (MDRD) 28 Glucose 166 H POC Glucose 149 H Calcium 6.8 L Phosphorus 4.6 Magnesium 2.8 H Total Bilirubin 1.2 AST 108 H ALT 28 Alkaline Phosphatase 36 L Creatine Kinase 1698 H Serum Total Protein 6.2 Albumin 2.1 L Globulin 4.1 H Albumin/Globulin Ratio 0.5 L 11/18/17 11/18/17 04:46 06:40 WBC RBC Hgb Hct MCV MCH MCHC RDW Plt Count MPV Neutrophils % (Manual) Band Neuts % (Manual) Lymphocytes % (Manual) Monocytes % (Manual) Hypochromia Toxic Granulation Plt Morphology Comment Poikilocytosis Anisocytosis Specimen Type ARTERIAL Puncture Site LBA Bicarbonate Actual 17.0 L ABG pH 7.39 ABG pCO2 28.9 L ABG pO2 103.4 H ABG O2 Sat Calc/Katia 98.0 ABG O2 Content 8.8 L ABG Base Excess -7.3 L ABG Hematocrit 20.8 L ABG Hemoglobin 6.3 L ABG Oxyhemoglobin 96.3 ABG Carboxyhemoglobin 1.3 ABG Methemoglobin 0.4 ABG Deoxyhemoglobin 2.0 Neil Test NOT DONE A-a O2 Gradient 74.675 H Sodium 138 Potassium 3.8 Chloride 107 H Ionized Calcium 1.0 L Mode of Support SIMV/PSV Mechanical Rate 12 Inspired O2 30 Tidal Volume 500 Pressure Support 10 PEEP or CPAP 5.0 Carbon Dioxide Anion Gap BUN Creatinine Estimated GFR (MDRD) Glucose POC Glucose 180 H Calcium Phosphorus Magnesium Total Bilirubin AST ALT Alkaline Phosphatase Creatine Kinase Serum Total Protein Albumin Globulin Albumin/Globulin Ratio CCU Progress Note: A/P - Problems (1) Systemic lupus erythematosus Current Visit: Yes Status: Acute Code(s): M32.9 - SYSTEMIC LUPUS ERYTHEMATOSUS, UNSPECIFIED Qualifiers: Systemic lupus erythematosus organ involvement: other (2) Acute respiratory failure Current Visit: Yes Status: Acute Code(s): J96.00 - ACUTE RESPIRATORY FAILURE , UNSP W HYPOXIA OR HYPERCAPNIA (3) Thrombocytopenia Current Visit: Yes Status: Acute Code(s): D69.6 - THROMBOCYTOPENIA, UNSPECIFIED (4) Anemia Current Visit: Yes Status: Acute Code(s): D64.9 - ANEMIA, UNSPECIFIED (5) Acute renal failure (ARF) Current Visit: Yes Status: Acute - Time Spent with Patient Time: 30 min cc time - Plan Plan: d/w Dr. Stout from ENT yesterday. Cords, upper airway OK for extubation. Anemia and thrombocytopenia due to SLE. May need 1 unit PRBC Receiving noram-dose steroids. D/w Dr. Rubio Monitor in CCU after extubation
[2017-11-18 08:03] LABS: Reticulocyte Count 0.7 % (0.5-1.5)
[2017-11-18] MEDS: Famotidine/PF 20 mg/2ml Vial SLOW IVP SCH ×2 (08:10→22:07)
[2017-11-18 08:12] LABS: Iron 17 ug/dL (50-170); Iron Binding Capacity, Total 159 mcg/dL (265-497)
[2017-11-18 08:14] LABS: INR-International Normal Ratio 1.1; PTT 25.6 SEC (22.9-36.1); Prothrombin Time 13.8 SEC (12.0-14.7)
--- NOTE | 2017-11-18 08:40 | RAD ---
SINGLE VIEW OF THE CHEST: Comparison: 11-17-17 History: Ventilated patient with respiratory failure. FINDINGS: Single view of the chest shows a normal sized cardiomediastinal silhouette. Endotracheal tube is unch anged in position. There is bilateral perihilar fullness, left greater than right. This may represent pulmonary vasculature or perihilar infiltrates. No change has occurred compared to the prior exam. IMPRESSION: Stable exam. POS: PENG
--- NOTE | 2017-11-18 13:49 | PRG ---
DATE OF SERVICE: 11/18/2017 SUBJECTIVE: Patient was seen and examined at bedside and overnight events noted. Patient denies any shortness of breath or chest pain or palpitation. No history of nausea or vomiting or diarrhea or f ever or chills or cramps. OBJECTIVE: GENERAL: This is a well-built female in no apparent distress. VITAL SIGNS: Temperature 98.0, pulse 106, respiratory rate 18, blood pressure 128/86. HEENT: Atraumatic, normocephalic. Oral mucosa is moist. NECK: Supple. CARDIOVASCULAR: S1, S2 heard. Rate and rhythm regular. RESPIRATORY: Clear to auscultation. GASTROINTESTINAL: Abdomen is soft. MUSCULOSKELETAL: No tenderness. No edema. DERMATOLOGIC: No skin rash. NEUROLOGIC: Alert and awake and oriented x3. No focal neurologic deficits. Moving all the extremiti es. PSYCHIATRIC: Mood and affect normal. LABORATORY DATA: Potassium is 3.8, BUN is 39, and creatinine is 2.04. ASSESSMENT AND PLAN: 1. Acute kidney injury versus chronic kidney disease stage III/IV. Renal function with no significa nt improvement, but currently on high dose steroids. 2. History of lupus with possible nephritis. He did have significant proteinuria. Need a biopsy fo r classification. We will discuss with Dr. Mathew, the parking lot chauffeur's also. 3. Acidosis. 4. Hyponatremia. 5. Hypoalbuminemia. 6. Proteinuria, most likely from lupus nephritis. 7. Continue on steroids. We will follow with Rheumatology and need renal biopsy once stable.
[2017-11-18] MEDS: Fentanyl 100 MCG/2 ML VIAL SLOW IVP PRN ×2 (16:10→23:19)
[2017-11-18] MEDS: methylPREDNISolone Sod Succ 1,000 MG in Sodium Chloride 0.9% 250 ML 250 ML IVPB SCH (17:49)
[2017-11-18] MEDS ORDERED: Multivit, Adult Inj 10 ML VIAL IV SCH (20:45)
--- NOTE | 2017-11-18 20:48 | PDOC.PN ---
- Subjective Encounter Start Date: 11/18/17 Encounter Start Time: 14:30 Patient seen and examined. No new complaints. Extubated. No overnight events - Objective Resuscitation Status: Resuscitation Status FULL:Full Resuscitation MAR Reviewed: Yes Vital Signs & Weight: Vital Signs (12 hours) Temp Pulse Resp Pulse Ox 11/18/17 18:49 112 H 30 H 95 11/18/17 16:49 97.4 F L 26 H 96 11/18/17 16:00 97.2 F L 11/18/17 13:45 97.4 F L 26 H 96 11/18/17 12:00 97.8 F 11/18/17 11:19 97.6 F 26 H 94 L 11/18/17 10:57 102 H 23 H 100 Weight Admit Weight 155 lb 3.287 oz Weight 164 lb 14.492 oz Most Recent Monitor Data Heart Rate from ECG 138 NIBP 130/71 NIBP BP-Mean 85 Respiration from ECG 30 SpO2 92 I&O: 11/17/17 11/18/17 11/19/17 06:59 06:59 06:59 Intake Total 2115.6 2296 1357.6 Output Total 1102 1490 680 Balance 1013.6 806 677.6 Result Diagrams: 11/18/17 04:37 11/18/17 04:37 Additional Labs: Accuchecks 11/18/17 11/18/17 11/18/17 17:54 12:15 04:46 POC Glucose 153 H 142 H 180 H 11/17/17 23:18 POC Glucose 149 H EKG Reviewed by me: Yes (Tele SR) Phys Exam - Physical Examination Constitutional: NAD Respiratory: no wheezing, no rhonchi Cardiovascular: RRR, no rub Gastrointestinal: soft, non-tender, positive bowel sounds Musculoskeletal: no edema Neurological: moves all 4 limbs Dx/Plan - Plan DVT proph w/SCDs IMPRESSION: 1. Angioedema/?Lupus flare - on Pulse dose steroids 2. Sepsis with acute organ dysfunction- cultures negative 3. Acute kidney injury - ?Lupus nephropathy 4. Metabolic acidosis/lactic acidosis. 5. Rhabdomyolysis 6. Pancytopenia 7. h/o Systemic lupus erythematosus, on chronic steroids/Leukopenia/ Thrombocytopenia/Proteinuria/Abn LFTs/Mild hyponatremia. PLAN: * Nephro following * 1 unit PRBC * IV MVMs * AM labs * Cont Atbx * Cont H1/H2 blockers - change benadryl to Q 8h * Cont current meds as below * Change Steroids to 40 mg Q6h in AM Review of Systems - Review of Systems ENT: Throat Pain Respiratory: negative: Cough, Dry, Shortness of Breath, Hemoptysis, SOB with Excertion, Pleuritic Pain, Sputum, Wheezing Cardiovascular: negative: chest pain, palpitations, orthopnea, paroxysmal nocturnal dyspnea, edema, light headedness - Medications/Allergies Allergies/Adverse Reactions: Allergies Allergy/AdvReac Type Severity Reaction Status Date / Time No Known Drug Allergies Allergy Verified 11/15/17 16:10 Medications: Current Medications Acetaminophen (Tylenol) 650 mg MN Q4H PRN PRN Reason: Headache/Fever or Pain Last Admin: 11/17/17 19:35 Dose: 650 mg Acetaminophen (Tylenol Elixir) 650 mg PO Q6H PRN PRN Reason: Fever/Mild Pain Albuterol/Ipratropium (Duoneb) 3 ml NEB [id number] [facility] Last Admin: 11/18/17 18:49 Dose: 3 ml Albuterol/Ipratropium (Duoneb) 3 ml NEB [id number] PRN PRN Reason: SOB &/or Wheezing Bisacodyl (Dulcolax) 10 mg MN Q24H PRN PRN Reason: Constipation Clindamycin Phosphate/Dextrose (Cleocin) 300 mg IVPB 0500,1100,1700,2300 [facility] Last Admin: 11/18/17 17:36 Dose: 300 mg Dextrose/Water (Dextrose 50%) 25 gm SLOW IVP PRN PRN PRN Reason: Hypoglycemia Diphenhydramine HCl (Benadryl) 25 mg IVP Q8HR [facility] Famotidine (Pepcid) 20 mg SLOW IVP BID [facility] Last Admin: 11/18/17 08:10 Dose: 20 mg Fentanyl (Sublimaze) 50 mcg SLOW IVP Q2H PRN PRN Reason: Pain Last Admin: 11/18/17 16:10 Dose: 50 mcg Glucagon (Glucagon) 1 mg IM PRN PRN PRN Reason: Hypoglycemia Hydralazine HCl (Apresoline) 10 mg SLOW IVP Q4H PRN PRN Reason: SBP Greater Than 180 Piperacillin Sod/Tazobactam (Sod 3.375 gm/ Sodium Chloride) 100 mls @ 200 mls/ hr IVPB 0200,0800,1400,2000 [facility] Last Admin: 11/18/17 15:45 Dose: 100 mls Potassium Chloride 40 meq/ (Sodium Chloride) 270 mls @ 135 mls/hr IVPB ASDIR PRN PRN Reason: FOR SERUM K+ 2.5 - 3.5 Potassium Chloride 40 meq/ (Device) 100 mls @ 50 mls/hr IVPB ASDIR PRN PRN Reason: FOR SERUM K+ 2.5 - 3.5 Magnesium Sulfate 1 gm/ Sodium (Chloride) 102 mls @ 102 mls/hr IV PRN PRN PRN Reason: MAG LEVEL 1.4 - 2.0 Magnesium Sulfate 2 gm/ Device 100 mls @ 100 mls/hr IVPB ASDIR PRN PRN Reason: MAGNESIUM < 1.4 Last Admin: 11/16/17 22:56 Dose: 100 mls Potassium Phosphate 9 mmol/ (Sodium Chloride) 103 mls @ 25.75 mls/hr IVPB ASDIR PRN PRN Reason: Phosphate 1.0-1.8 Potassium Phosphate 12 mmol/ (Sodium Chloride) 254 mls @ 63.5 mls/hr IV ASDIR PRN PRN Reason: Serum phosphate 0.5-0.9 Potassium Phosphate 15 mmol/ (Sodium Chloride) 255 mls @ 63.75 mls/hr IV ASDIR PRN PRN Reason: Serum Phos < 0.5 Dextrose/Water (D5w) 1,000 mls @ 0 mls/hr IV .Q0M PRN; As Directed PRN Reason: Hypoglycemia Sodium Chloride (1/2 Normal Saline) 1,000 mls @ 75 mls/hr IV .[id number] [facility] Last Admin: 11/18/17 04:48 Dose: 1,000 mls Insulin Human Lispro (Humalog) 0 units SC .MILD SLIDING SCALE PRN PRN Reason: Mild Correctional Scale Last Admin: 11/18/17 04:49 Dose: 2 unit Lactulose (Lactulose) 20 gm PO DAILYPRN PRN PRN Reason: Constipation Lorazepam (Ativan) 2 mg SLOW IVP Q2H PRN PRN Reason: Anxiety to achieve Olsen 2-3 Stop: 12/15/17 12:33 Last Admin: 11/16/17 19:23 Dose: 2 mg Magnesium Oxide (Magnesium Oxide) 400 mg PO BIDPRN PRN PRN Reason: FOR SERUM MAG 1.4 - 2.0 Magnesium Oxide (Magnesium Oxide) 800 mg PO PRN PRN PRN Reason: FOR SERUM MAG < 1.4 Methylprednisolone Sodium Succinate (Solu-Medrol) 40 mg IVP Q6HR [facility] Mineral Oil/White Petrolatum (Lacri-Lube Ointment) 0 gm EA EYE PRN PRN PRN Reason: Dry Eyes Mineral Oil/White Petrolatum (Eucerin Cream) 0 gm TOP BIDPRN PRN PRN Reason: Dry Skin Miscellaneous Medication (Phos-Nak) 1 pkt PO TIDPRN PRN PRN Reason: FOR PHOS LEVEL 1.0 - 1.8 Miscellaneous Medication (Phos-Nak) 2 pkt PO TIDPRN PRN PRN Reason: FOR PHOS LEVEL 0.5 - 1.0 Miscellaneous Medication (Pharmacy To Dose) 0 each IVPB ASDIR PRN PRN Reason: Pharmacy to Dose [RENALLY ADJ Multivitamins (Mvi, Adult) 10 ml IV Q24H [facility] Ccu Electrolyte (Replacement Protocol) 0 each FS PRN PRN PRN Reason: FOR ELECTROLYTE REPLACEMENT Ondansetron HCl (Zofran Odt) 4 mg PO Q6H PRN PRN Reason: Nausea/Vomiting Ondansetron HCl (Zofran) 4 mg IVP Q6H PRN PRN Reason: Nausea/Vomiting Potassium Chloride (K-Dur) 40 meq PO ASDIR PRN PRN Reason: FOR SERUM K+ 2.5 - 3.5 Potassium Chloride (Klor-Con) 40 meq PER TUBE ASDIR PRN PRN Reason: FOR SERUM K+ 2.5-3.5 Propofol (Diprivan) 1,000 mg IV INF PRN; Protocol PRN Reason: TO ACHIEVE OLSEN SCORE 2-3 Stop: 12/15/17 12:33 Last Admin: 11/16/17 19:23 Dose: 1,000 mg Sodium Chloride (Flush - Normal Saline) 10 ml IVF PRN PRN PRN Reason: Saline Flush
[2017-11-18] MEDS: Multivitamins, Adult 10 ML in Sodium Chloride 0.9% 1,000 ML IV SCH (22:06)
[2017-11-18] MEDS: Acetaminophen 650 MG Suppository PR PRN (23:20)
[2017-11-19] MEDS: Fentanyl 100 MCG/2 ML VIAL SLOW IVP PRN ×5 (02:38→21:59)
[2017-11-19] MEDS: Piperacillin/Tazobactam 3.375 GM in Sodium Chloride 0.9% 100 ML IVPB SCH ×4 (02:38→20:38)
[2017-11-19 03:52] LABS: Actual Bicarbonate (HCO3a) 16.4 mEq/L (22-26); CO2 Tension 28.5 mmHg (35.0-45.0); pH, Arterial 7.38 (7.35-7.45)
[2017-11-19 03:53] LABS: Base Excess (BEa) -7.7 mEq/L (0 (+/-) 2.5); Hematocrit-ABG 18.7 % (36.0-47.0); Hemoglobin (Hb) 8.6 g/dL (12.0-16.0)
[2017-11-19 03:54] LABS: ALV-art Gradient 236.875 (0-20); Puncture Site RRA
[2017-11-19] MEDS ORDERED: Dexamethasone 10 MG/ML VIAL SLOW IVP SCH (04:00)
[2017-11-19] MEDS: diphenhydrAMINE 50 MG/ML VIAL IVP SCH ×3 (04:06→22:03)
[2017-11-19] MEDS: Clindamycin/D5W 300 MG/50 ML BAG IVPB SCH ×4 (04:27→22:03)
[2017-11-19] MEDS: Sodium Chloride 0.45% 1,000 ML IV SCH ×2 (04:52→06:13)
[2017-11-19 05:58] LABS: ALT (SGPT) 28 U/L (8-55); AST (SGOT) 87 U/L (5-34); Albumin 2.1 g/dL (3.5-5.0); Alkaline Phosphatase 42 U/L (40-150); Anion Gap 13 mmol/L (10-20); BUN (Urea Nitrogen) 38 mg/dL (7.0-18.7); Bilirubin, Total 1.4 mg/dL (0.2-1.2); CK (CPK) 1371 U/L (29-168); Calc. Creatinine Clearance 49 mL/min (70-130); Calcium 7.2 mg/dL (7.8-10.44); Carbon Dioxide 18 mmol/L (22-29); Chloride 113 mmol/L (98-107); Estimated GFR-MDRD 30; Globulin 4.4 g/dL (2.4-3.5); Glucose 173 mg/dL (70-105); Potassium 3.5 mmol/L (3.5-5.1); Protein, Total 6.5 g/dL (6.0-8.3); Sodium 140 mmol/L (136-145)
[2017-11-19 06:06] LABS: Anisocytosis SLIGHT = 6-15 cells (100X) (0-5/hpf); Band 8 % (5-11); Elliptocytes SLIGHT = 2-5 cells (100X) (0-1/hpf); Hemoglobin 7.6 g/dL (12.0-16.0); Hypochromia SLIGHT = 6-15 cells (100X) (0-5/hpf); Lymphocytes 5 % (21-51); MDiff Complete? YES; Mean Corpuscular HGB CONC 32.6 g/dL (32.0-36.0); Mean Corpuscular Hemoglobin 29.3 pg (27.0-31.0); Mean Corpuscular Volume 89.9 fl (81.0-99.0); Mean Platelet Volume 9.1 fL (7.4-10.4); Metamyelocyte 1 % (0-0); Monocytes 2 % (0-10); Neutrophil 84 % (42-75); PLT Morphology Comment Appears Decreased; Platelet Count 74 thou/uL (130-400); Poikilocytosis SLIGHT = 6-15 cells (100X) (0-5/hpf); RBC Distribution Width 15.9 % (11.5-14.5); Red Blood Cell (RBC) Count 2.58 mill/uL (4.20-5.40); White Blood Cell (WBC) Count 7.7 thou/uL (4.8-10.8)
[2017-11-19] MEDS: HumaLOG 300 UNITS/3 ML VIAL SC PRN ×3 (06:28→20:48)
[2017-11-19] MEDS ORDERED: Furosemide 20 MG/2 ML VIAL IVP SCH (07:45)
[2017-11-19] MEDS: Famotidine/PF 20 mg/2ml Vial SLOW IVP SCH ×2 (08:14→20:38)
--- NOTE | 2017-11-19 08:31 | RAD ---
CHEST ONE VIEW: History: Dyspnea. Follow up. Comparison: 11-18-17 FINDINGS: Cardiac silhouette is magnified by projection. Pulmonary vasculature is now engorged. Dense wide spre ad airspace opacity has developed since the previous study. No evidence of pneumothorax. Endotracheal catheter has been removed. monitor technician leads overlie the chest. IMPRESSION: Interval development of pulmonary edema. Cause is not evident. POS: PENG
--- NOTE | 2017-11-19 09:32 | PRG ---
DATE OF SERVICE: 11/19/2017 A 35 minutes critical care time. SUBJECTIVE: The patient had worsening of her oxygenation last night and required a dose of IV steroi ds involved in her FIO2. She has been in pain all over. PHYSICAL EXAMINATION: VITAL SIGNS: Temperature is 99.9, pulse 124, blood pressure 129/80, O2 sat 100% on Ventimask, but he r respiratory rate is generally running in the high 20s to high 30s. A 24-hour intake 1357, output 6 80. HEENT: Remarkable for slightly swollen tongue and slightly discolored at the end. NECK: No JVD. LUNGS: She has inspiratory crackles bilaterally. CARDIOVASCULAR: S1, S2, tachycardic without murmur. ABDOMEN: Soft, nontender. EXTREMITIES: Showed generalized edema throughout. NEUROLOGIC: Grossly intact. LABORATORY DATA: White blood cell count 7.7, hematocrit 23.2, platelet count 74, pH 7.38, pCO2 228, pO2 of 84 and that is on a 50% Ventimask. Sodium 140, potassium 3.5, chloride 113, CO2 18, BUN 38, c reatinine 1.9, glucose 173. CPK 1371. X-RAY FINDINGS: Her chest x-ray shows diffuse bilateral infiltrates, which have developed since yest erday. Her echo showed EF of 35%-40%. ASSESSMENT: 1. Acute respiratory failure - hypoxic. 2. Lupus with effects on tongue, extremities, hemoglobin and platelets. 3. Acute renal failure likely secondary to lupus. 4. Developing pulmonary infiltrates, which are likely either to pulmonary edema or lupus pneumonitis . PLAN: She is up approximately 9 pounds of weight since admission, so I will try to diurese her and s ee if this helps her pulmonary status. She will continue on high dose steroids. She is on broad spe ctrum IV antibiotics. She needs to remain in the CCU.
[2017-11-19 15:14] LABS: Anti-Striation AB Negative (Neg:<1:40); Antinuclear AB Positive (Negative); Antiparietal Cell Ab 3.9 Units (0.0-20.0); Complement C4 3 mg/dL (14-44); DSDNA AutoAb Greater than 300 IU/mL (0-9); SCL-70 IgG AutoAb <0.2 AI (0.0-0.9); Smith IgG AutoAb 0.2 AI (0.0-0.9); Smooth Muscle AB 14 Units (0-19); Thyroid Peroxidase Abs 21 IU/mL (0-34); U1 RNP/SNRNP IgG AutoAb 0.7 AI (0.0-0.9)
--- NOTE | 2017-11-19 16:49 | PDOC.PN ---
- Subjective Encounter Start Date: 11/19/17 Encounter Start Time: 14:45 Patient seen and examined. No new complaints. Overnight events noted - Objective Resuscitation Status: Resuscitation Status FULL:Full Resuscitation MAR Reviewed: Yes Vital Signs & Weight: Vital Signs (12 hours) Temp Pulse Resp Pulse Ox 11/19/17 15:00 99.4 F 11/19/17 14:00 98.6 F 11/19/17 13:14 116 H 34 H 99 11/19/17 12:00 98.2 F 11/19/17 08:24 99 11/19/17 08:19 114 H 44 H 99 11/19/17 08:00 98 F Weight Admit Weight 155 lb 3.287 oz Weight 163 lb 12.855 oz Most Recent Monitor Data Heart Rate from ECG 125 NIBP 126/79 NIBP BP-Mean 87 Respiration from ECG 40 SpO2 97 I&O: 11/18/17 11/19/17 11/20/17 06:59 06:59 06:59 Intake Total 2296 2868.6 270 Output Total 1490 1350 1450 Balance 806 1518.6 -1180 Result Diagrams: 11/19/17 04:20 11/19/17 04:20 Additional Labs: Accuchecks 11/19/17 11/19/17 11/18/17 14:36 04:34 23:26 POC Glucose 179 H 184 H 171 H 11/18/17 17:54 POC Glucose 153 H EKG Reviewed by me: Yes (Tele SR) Phys Exam - Physical Examination Constitutional: NAD Respiratory: no wheezing, no rhonchi Cardiovascular: RRR, no rub Gastrointestinal: soft, non-tender, positive bowel sounds Dx/Plan - Plan DVT proph w/SCDs IMPRESSION: 1. Angioedema/?Lupus flare - s/p Pulse dose steroids 2. Sepsis with acute organ dysfunction- cultures negative 3. Acute kidney injury - ?Lupus nephropathy 4. Metabolic acidosis/lactic acidosis. 5. Rhabdomyolysis - CK improving 6. Pancytopenia s/p 1 unit PRBC 7. h/o Systemic lupus erythematosus, on chronic steroids/Leukopenia/ Thrombocytopenia/Proteinuria/Abn LFTs/Mild hyponatremia. PLAN: * Started on diuresis * Critical care/Rheumat/Nephro following * AM labs * Cont Atbx/Steroids/H1/H2 blockers * Cont current meds as below Review of Systems - Review of Systems Cardiovascular: negative: chest pain, palpitations, orthopnea, paroxysmal nocturnal dyspnea, edema, light headedness Gastrointestinal: negative: Nausea, Vomiting, Abdominal Pain, Diarrhea, Constipation, Melena, Hematochezia - Medications/Allergies Allergies/Adverse Reactions: Allergies Allergy/AdvReac Type Severity Reaction Status Date / Time No Known Drug Allergies Allergy Verified 11/15/17 16:10 Medications: Current Medications Acetaminophen (Tylenol) 650 mg ME Q4H PRN PRN Reason: Headache/Fever or Pain Last Admin: 11/18/17 23:20 Dose: 650 mg Acetaminophen (Tylenol Elixir) 650 mg PO Q6H PRN PRN Reason: Fever/Mild Pain Albuterol/Ipratropium (Duoneb) 3 ml NEB [id number] [facility] Last Admin: 11/19/17 13:14 Dose: 3 ml Albuterol/Ipratropium (Duoneb) 3 ml NEB [id number] PRN PRN Reason: SOB &/or Wheezing Last Admin: 11/19/17 04:07 Dose: 3 ml Bisacodyl (Dulcolax) 10 mg ME Q24H PRN PRN Reason: Constipation Clindamycin Phosphate/Dextrose (Cleocin) 300 mg IVPB 0500,1100,1700,2300 [facility] Last Admin: 11/19/17 10:40 Dose: 300 mg Dextrose/Water (Dextrose 50%) 25 gm SLOW IVP PRN PRN PRN Reason: Hypoglycemia Diphenhydramine HCl (Benadryl) 25 mg IVP Q8HR [facility] Last Admin: 11/19/17 14:37 Dose: 25 mg Famotidine (Pepcid) 20 mg SLOW IVP BID [facility] Last Admin: 11/19/17 08:14 Dose: 20 mg Fentanyl (Sublimaze) 50 mcg SLOW IVP Q2H PRN PRN Reason: Pain Last Admin: 11/19/17 15:57 Dose: 50 mcg Glucagon (Glucagon) 1 mg IM PRN PRN PRN Reason: Hypoglycemia Hydralazine HCl (Apresoline) 10 mg SLOW IVP Q4H PRN PRN Reason: SBP Greater Than 180 Piperacillin Sod/Tazobactam (Sod 3.375 gm/ Sodium Chloride) 100 mls @ 200 mls/ hr IVPB 0200,0800,1400,2000 [facility] Last Admin: 11/19/17 14:50 Dose: 100 mls Potassium Chloride 40 meq/ (Sodium Chloride) 270 mls @ 135 mls/hr IVPB ASDIR PRN PRN Reason: FOR SERUM K+ 2.5 - 3.5 Last Admin: 11/19/17 10:37 Dose: 270 mls Potassium Chloride 40 meq/ (Device) 100 mls @ 50 mls/hr IVPB ASDIR PRN PRN Reason: FOR SERUM K+ 2.5 - 3.5 Magnesium Sulfate 1 gm/ Sodium (Chloride) 102 mls @ 102 mls/hr IV PRN PRN PRN Reason: MAG LEVEL 1.4 - 2.0 Magnesium Sulfate 2 gm/ Device 100 mls @ 100 mls/hr IVPB ASDIR PRN PRN Reason: MAGNESIUM < 1.4 Last Admin: 11/16/17 22:56 Dose: 100 mls Potassium Phosphate 9 mmol/ (Sodium Chloride) 103 mls @ 25.75 mls/hr IVPB ASDIR PRN PRN Reason: Phosphate 1.0-1.8 Potassium Phosphate 12 mmol/ (Sodium Chloride) 254 mls @ 63.5 mls/hr IV ASDIR PRN PRN Reason: Serum phosphate 0.5-0.9 Potassium Phosphate 15 mmol/ (Sodium Chloride) 255 mls @ 63.75 mls/hr IV ASDIR PRN PRN Reason: Serum Phos < 0.5 Dextrose/Water (D5w) 1,000 mls @ 0 mls/hr IV .Q0M PRN; As Directed PRN Reason: Hypoglycemia Multivitamins 10 ml/ Sodium (Chloride) 1,010 mls @ 126.25 mls/hr IV Q24HR [facility] Stop: 11/21/17 04:59 Last Admin: 11/18/17 22:06 Dose: 1,010 mls Insulin Human Lispro (Humalog) 0 units SC .MILD SLIDING SCALE PRN PRN Reason: Mild Correctional Scale Last Admin: 11/19/17 14:51 Dose: 2 unit Lactulose (Lactulose) 20 gm PO DAILYPRN PRN PRN Reason: Constipation Lorazepam (Ativan) 2 mg SLOW IVP Q2H PRN PRN Reason: Anxiety to achieve Olsen 2-3 Stop: 12/15/17 12:33 Last Admin: 11/16/17 19:23 Dose: 2 mg Magnesium Oxide (Magnesium Oxide) 400 mg PO BIDPRN PRN PRN Reason: FOR SERUM MAG 1.4 - 2.0 Magnesium Oxide (Magnesium Oxide) 800 mg PO PRN PRN PRN Reason: FOR SERUM MAG < 1.4 Methylprednisolone Sodium Succinate (Solu-Medrol) 40 mg IVP Q6HR [facility] Last Admin: 11/19/17 12:29 Dose: 40 mg Mineral Oil/White Petrolatum (Lacri-Lube Ointment) 0 gm EA EYE PRN PRN PRN Reason: Dry Eyes Mineral Oil/White Petrolatum (Eucerin Cream) 0 gm TOP BIDPRN PRN PRN Reason: Dry Skin Miscellaneous Medication (Phos-Nak) 1 pkt PO TIDPRN PRN PRN Reason: FOR PHOS LEVEL 1.0 - 1.8 Miscellaneous Medication (Phos-Nak) 2 pkt PO TIDPRN PRN PRN Reason: FOR PHOS LEVEL 0.5 - 1.0 Miscellaneous Medication (Pharmacy To Dose) 0 each IVPB ASDIR PRN PRN Reason: Pharmacy to Dose [RENALLY ADJ Ccu Electrolyte (Replacement Protocol) 0 each FS PRN PRN PRN Reason: FOR ELECTROLYTE REPLACEMENT Ondansetron HCl (Zofran Odt) 4 mg PO Q6H PRN PRN Reason: Nausea/Vomiting Ondansetron HCl (Zofran) 4 mg IVP Q6H PRN PRN Reason: Nausea/Vomiting Potassium Chloride (K-Dur) 40 meq PO ASDIR PRN PRN Reason: FOR SERUM K+ 2.5 - 3.5 Potassium Chloride (Klor-Con) 40 meq PER TUBE ASDIR PRN PRN Reason: FOR SERUM K+ 2.5-3.5 Propofol (Diprivan) 1,000 mg IV INF PRN; Protocol PRN Reason: TO ACHIEVE OLSEN SCORE 2-3 Stop: 12/15/17 12:33 Last Admin: 11/16/17 19:23 Dose: 1,000 mg Sodium Chloride (Flush - Normal Saline) 10 ml IVF PRN PRN PRN Reason: Saline Flush
[2017-11-19 17:18] LABS: Potassium 3.9 mmol/L (3.5-5.1)
[2017-11-19] MEDS: Diltiazem 125 MG in Sodium Chloride 0.9% 100 ML IVPB SCH (19:35)
[2017-11-19 20:01] LABS: Troponin I 0.034 ng/mL (< 0.028)
[2017-11-19 20:04] LABS: CKMB 8.2 ng/mL (0-6.6)
[2017-11-19 20:21] LABS: T4 4.8 ug/dL (4.87-11.72); Thyroid Stimulating Hormone 0.1225 uIU/mL (0.35-4.94)
[2017-11-19] MEDS: Multivitamins, Adult 10 ML in Sodium Chloride 0.9% 1,000 ML IV SCH (20:38)
[2017-11-19] MEDS ORDERED: CYCLOPHOSPHAMIDE IVPB SCH (21:00)
[2017-11-19] MEDS ORDERED: SODIUM CHLORIDE 0.9% IVPB SCH (21:00)
--- NOTE | 2017-11-19 22:17 | PRG ---
DATE OF SERVICE: 11/19/2017 SUBJECTIVE: Patient was seen and examined at bedside and overnight events noted. Patient denies shortness of breath or cramps or chest pain or palpitation. No Nausea or vomiting or diarrhea or fever or chills OBJECTIVE: GENERAL: This is a well-built white female in no apparent distress. VITAL SIGNS: Temperature 99.1, pulse 118, respiratory rate of 47, blood pressure 126/82. Musculoskeletal : No tenderness, No edema HEENT: Atraumatic normocephalic Neck: Supple Cardiovascular: S1S2 heard, Rate and rhythm regular Respiratory: Clear to auscultation Gastrointestinal: Abdomen is soft Dermatologic : No skin rash Neurologic: Alert and awake and oriented X3 No focal neurologic deficits. Moving all the extremities. Psychiatric: Mood and affect normal LABORATORY DATA: Potassium is 3.5, BUN 38, creatinine 1.9. ASSESSMENT AND PLAN: 1. Acute kidney injury. Renal function slight improvement, most likely lupus flare, not much improved with IV hydration. 2. Acidosis. 3. Proteinuria. 4. 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 5. Anemia. 6. Edema. 7. Hypertension. Plan is to start her on Lasix today. We will monitor renal function closely. LINDA
[2017-11-20] MEDS: Piperacillin/Tazobactam 3.375 GM in Sodium Chloride 0.9% 100 ML IVPB SCH ×4 (01:03→21:48)
[2017-11-20] MEDS: HumaLOG 300 UNITS/3 ML VIAL SC PRN ×3 (01:24→23:43)
[2017-11-20] MEDS: Fentanyl 100 MCG/2 ML VIAL SLOW IVP PRN ×2 (02:40→05:30)
[2017-11-20 04:48] LABS: Actual Bicarbonate (HCO3a) 17.2 mEq/L (22-26); Base Excess (BEa) -5.9 mEq/L (0 (+/-) 2.5); CO2 Tension 26.4 mmHg (35.0-45.0); Calcium, Ionized 1.1 mmol/L (1.12-1.30); Hematocrit-ABG 27.3 % (36.0-47.0); O2 Tension (PaO2) 58.5 mmHg (80.0-100.0); pH, Arterial 7.43 (7.35-7.45)
[2017-11-20 04:54] LABS: Puncture Site LRA
[2017-11-20] MEDS: diphenhydrAMINE 50 MG/ML VIAL IVP SCH ×3 (04:58→21:48)
[2017-11-20] MEDS: Clindamycin/D5W 300 MG/50 ML BAG IVPB SCH ×4 (04:58→23:39)
[2017-11-20] MEDS ORDERED: Lorazepam 2 MG/ML VIAL SLOW IVP SCH (05:39)
--- NOTE | 2017-11-20 05:44 | PDOC.PULCC ---
CCU Progress Note: Subj/Obj - Subjective Date: 11/20/17 Time: 05:42 Subjective: She had had rapid RR for last couple of hours. She says she is nervous. Her throat doesn't hurt as much and her tongue swelling has dissipated to the point that I can now understand her speech. She denies any chest or abdominal pain. - ROS Review of Systems: shortness of breath - Objective Allergies/Adverse Reactions: Allergies Allergy/AdvReac Type Severity Reaction Status Date / Time No Known Drug Allergies Allergy Verified 11/15/17 16:10 Medications: Current Medications Acetaminophen (Tylenol) 650 mg MI Q4H PRN PRN Reason: Headache/Fever or Pain Last Admin: 11/18/17 23:20 Dose: 650 mg Acetaminophen (Tylenol Elixir) 650 mg PO Q6H PRN PRN Reason: Fever/Mild Pain Albuterol/Ipratropium (Duoneb) 3 ml NEB [id number] LESLI Last Admin: 11/20/17 00:25 Dose: 3 ml Albuterol/Ipratropium (Duoneb) 3 ml NEB [id number] PRN PRN Reason: SOB &/or Wheezing Last Admin: 11/19/17 04:07 Dose: 3 ml Bisacodyl (Dulcolax) 10 mg MI Q24H PRN PRN Reason: Constipation Clindamycin Phosphate/Dextrose (Cleocin) 300 mg IVPB 0500,1100,1700,2300 [facility] Last Admin: 11/20/17 04:58 Dose: 300 mg Dextrose/Water (Dextrose 50%) 25 gm SLOW IVP PRN PRN PRN Reason: Hypoglycemia Diphenhydramine HCl (Benadryl) 25 mg IVP Q8HR LESLI Last Admin: 11/20/17 04:58 Dose: 25 mg Famotidine (Pepcid) 20 mg SLOW IVP BID LESLI Last Admin: 11/19/17 20:38 Dose: 20 mg Fentanyl (Sublimaze) 50 mcg SLOW IVP Q2H PRN PRN Reason: Pain Last Admin: 11/20/17 05:30 Dose: 50 mcg Glucagon (Glucagon) 1 mg IM PRN PRN PRN Reason: Hypoglycemia Hydralazine HCl (Apresoline) 10 mg SLOW IVP Q4H PRN PRN Reason: SBP Greater Than 180 Piperacillin Sod/Tazobactam (Sod 3.375 gm/ Sodium Chloride) 100 mls @ 200 mls/ hr IVPB 0200,0800,1400,2000 [facility] Last Admin: 11/20/17 01:03 Dose: 100 mls Potassium Chloride 40 meq/ (Sodium Chloride) 270 mls @ 135 mls/hr IVPB ASDIR PRN PRN Reason: FOR SERUM K+ 2.5 - 3.5 Last Admin: 11/19/17 10:37 Dose: 270 mls Potassium Chloride 40 meq/ (Device) 100 mls @ 50 mls/hr IVPB ASDIR PRN PRN Reason: FOR SERUM K+ 2.5 - 3.5 Magnesium Sulfate 1 gm/ Sodium (Chloride) 102 mls @ 102 mls/hr IV PRN PRN PRN Reason: MAG LEVEL 1.4 - 2.0 Magnesium Sulfate 2 gm/ Device 100 mls @ 100 mls/hr IVPB ASDIR PRN PRN Reason: MAGNESIUM < 1.4 Last Admin: 11/16/17 22:56 Dose: 100 mls Potassium Phosphate 9 mmol/ (Sodium Chloride) 103 mls @ 25.75 mls/hr IVPB ASDIR PRN PRN Reason: Phosphate 1.0-1.8 Potassium Phosphate 12 mmol/ (Sodium Chloride) 254 mls @ 63.5 mls/hr IV ASDIR PRN PRN Reason: Serum phosphate 0.5-0.9 Potassium Phosphate 15 mmol/ (Sodium Chloride) 255 mls @ 63.75 mls/hr IV ASDIR PRN PRN Reason: Serum Phos < 0.5 Dextrose/Water (D5w) 1,000 mls @ 0 mls/hr IV .Q0M PRN; As Directed PRN Reason: Hypoglycemia Multivitamins 10 ml/ Sodium (Chloride) 1,010 mls @ 126.25 mls/hr IV Q24HR LESLI Stop: 11/21/17 04:59 Last Admin: 11/19/17 20:38 Dose: 1,010 mls Diltiazem HCl 125 mg/ Sodium (Chloride) 125 mls @ 5 mls/hr IVPB INF LESLI; 5 MG/ HR PRN Reason: Protocol Last Admin: 11/19/17 19:35 Dose: 125 mls Insulin Human Lispro (Humalog) 0 units SC .MILD SLIDING SCALE PRN PRN Reason: Mild Correctional Scale Last Admin: 11/20/17 01:24 Dose: 2 unit Lactulose (Lactulose) 20 gm PO DAILYPRN PRN PRN Reason: Constipation Lorazepam (Ativan) 2 mg SLOW IVP Q2H PRN PRN Reason: Anxiety to achieve [place] 2-3 Stop: 12/15/17 12:33 Last Admin: 11/16/17 19:23 Dose: 2 mg Lorazepam (Ativan) 2 mg SLOW IVP ONE STA Stop: 11/20/17 05:40 Magnesium Oxide (Magnesium Oxide) 400 mg PO BIDPRN PRN PRN Reason: FOR SERUM MAG 1.4 - 2.0 Magnesium Oxide (Magnesium Oxide) 800 mg PO PRN PRN PRN Reason: FOR SERUM MAG < 1.4 Methylprednisolone Sodium Succinate (Solu-Medrol) 40 mg IVP Q6HR LESLI Last Admin: 11/20/17 04:58 Dose: 40 mg Mineral Oil/White Petrolatum (Lacri-Lube Ointment) 0 gm EA EYE PRN PRN PRN Reason: Dry Eyes Mineral Oil/White Petrolatum (Eucerin Cream) 0 gm TOP BIDPRN PRN PRN Reason: Dry Skin Miscellaneous Medication (Phos-Nak) 1 pkt PO TIDPRN PRN PRN Reason: FOR PHOS LEVEL 1.0 - 1.8 Miscellaneous Medication (Phos-Nak) 2 pkt PO TIDPRN PRN PRN Reason: FOR PHOS LEVEL 0.5 - 1.0 Miscellaneous Medication (Pharmacy To Dose) 0 each IVPB ASDIR PRN PRN Reason: Pharmacy to Dose [RENALLY ADJ Ccu Electrolyte (Replacement Protocol) 0 each FS PRN PRN PRN Reason: FOR ELECTROLYTE REPLACEMENT Ondansetron HCl (Zofran Odt) 4 mg PO Q6H PRN PRN Reason: Nausea/Vomiting Ondansetron HCl (Zofran) 4 mg IVP Q6H PRN PRN Reason: Nausea/Vomiting Potassium Chloride (K-Dur) 40 meq PO ASDIR PRN PRN Reason: FOR SERUM K+ 2.5 - 3.5 Potassium Chloride (Klor-Con) 40 meq PER TUBE ASDIR PRN PRN Reason: FOR SERUM K+ 2.5-3.5 Propofol (Diprivan) 1,000 mg IV INF PRN; Protocol PRN Reason: TO ACHIEVE [place] SCORE 2-3 Stop: 12/15/17 12:33 Last Admin: 11/16/17 19:23 Dose: 1,000 mg Sodium Chloride (Flush - Normal Saline) 10 ml IVF PRN PRN PRN Reason: Saline Flush MAR Reviewed: Yes Vital Signs and I&O: Vital Signs Temp 99.0 F 11/20/17 03:00 Pulse 103 H 11/20/17 05:10 Resp 40 H 11/20/17 00:25 BP 121/76 11/18/17 02:30 Pulse Ox 98 11/20/17 02:32 Intake & Output 11/19/17 11/19/17 11/20/17 06:59 18:59 06:59 Intake Total 5507 998 9242.43 Output Total 670 1540 720 Balance 841 -804 625.43 Weight 163 lb 12.855 oz 163 lb 12.855 oz 165 lb 2.02 oz Intake: Intake, IV Amount 9754 777 8464.43 Clindamycin/D5W 300 mg 100 IVPB 0500,1100,1700,2300 [facility] Rx#:[id number] Cyclophosphamide 750 mg 100 In Sodium Chloride 0.9% 100 ml @ 100 mls/hr IVPB NOW LESLI Rx#:[id number] Diltiazem HCl 125 mg In 0.43 Sodium Chloride 0.9% 100 ml @ 5 MG/HR 5 mls/hr IVPB INF [facility] Rx#:[id number] Multivitamins, Adult 10 1000 1245 ml In Sodium Chloride 0.9 % 1,000 ml @ 126.25 mls/ hr IV Q24HR LES[facility] Rx#: [id number] Piperacillin/Tazobactam 3 200 .375 gm In Sodium Chloride 0.9% 100 ml @ 200 mls/hr IVPB 0200,0800 ,1400,2000 [facility] Rx#: [id number] Potassium Chloride 40 meq 270 In Sodium Chloride 0.9% 250 ML 250 ml @ 135 mls/ hr IVPB ASDIR PRN Rx#: [id number] Sodium Chloride 0.45% 1, 211 466 000 ml @ 75 mls/hr IV . [id number] [facility] Rx#:[id number] Output: Output, Ayoub 670 1540 720 Other: Voiding Method Indwelling Catheter Indwelling Catheter Indwelling Catheter Vent Setting: currently on Bipap CCU Progress Note: Exam - Physical Exam HEENT: PERRLA Deviation from normal: tongue less swollen, still dark on end Neck: no nodes, no JVD Deviation from normal: tachy, but sinus. On cardizem drip with improvement in HR Deviation from normal: tachypnec, a few crackles, but surprisingly not in distress Gastrointestinal: soft, non-tender Musculoskeletal: edema present Neurological: non-focal, normal sensation, moves all 4 limbs Lymphatic: no nodes Psychiatric: A&O x 3 Skin: no rash - Labs Result Diagrams: 11/19/17 04:20 11/19/17 16:56 Lab results: Laboratory Results - last 24 hr 11/16/17 11/19/17 11/19/17 09:20 04:20 04:20 WBC 7.7 RBC 2.58 L Hgb 7.6 L Hct 23.2 L MCV 89.9 MCH 29.3 MCHC 32.6 RDW 15.9 H Plt Count 74 L MPV 9.1 Neutrophils % (Manual) 84 H Band Neuts % (Manual) 8 Lymphocytes % (Manual) 5 L Monocytes % (Manual) 2 Metamyelocytes % (Man) 1 H Hypochromia SLIGHT = 6-15 cells Plt Morphology Comment Appears Decreased L Poikilocytosis SLIGHT = 6-15 cells Anisocytosis SLIGHT = 6-15 cells Elliptocytes SLIGHT = 2-5 cells Specimen Type Puncture Site Bicarbonate Actual ABG pH ABG pCO2 ABG pO2 ABG O2 Sat Calc/Katia ABG O2 Content ABG Base Excess ABG Hematocrit ABG Hemoglobin ABG Oxyhemoglobin ABG Carboxyhemoglobin ABG Methemoglobin ABG Deoxyhemoglobin Neil Test A-a O2 Gradient Ionized Calcium Mode of Support Inspired O2 Sodium 140 Potassium 3.5 Chloride 113 H Carbon Dioxide 18 L Anion Gap 13 BUN 38 H Creatinine 1.94 H Estimated GFR (MDRD) 30 Glucose 173 H POC Glucose Calcium 7.2 L Total Bilirubin 1.4 H AST 87 H ALT 28 Alkaline Phosphatase 42 Creatine Kinase 1371 H CK-MB (CK-2) Troponin I Serum Total Protein 6.5 Albumin 2.1 L Globulin 4.4 H Albumin/Globulin Ratio 0.5 L Thyroxine (T4) TSH 3rd Generation MIGUEL ÁNGEL Screen Positive A SS-A/Ro IgG Antibody <0.2 SS-B/La IgG Antibody <0.2 Sm (Caballero) IgG Ab, Quant 0.2 Scl-70 IgG Ab <0.2 Double Strand DNA Ab Greater than 300 H Anti-U1-BUSINESS SERVICES SPECIALIST SALES/snRNP IgG 0.7 Mitochondria M2 Ab 9.6 Striated Muscle Ab Negative Anti-Smooth Muscle Ab 14 Thyroperoxidase Ab 21 Anti-Parietal Cell Ab 3.9 Complement C4 3 L 11/19/17 11/19/17 11/19/17 14:36 16:56 19:29 WBC RBC Hgb Hct MCV MCH MCHC RDW Plt Count MPV Neutrophils % (Manual) Band Neuts % (Manual) Lymphocytes % (Manual) Monocytes % (Manual) Metamyelocytes % (Man) Hypochromia Plt Morphology Comment Poikilocytosis Anisocytosis Elliptocytes Specimen Type Puncture Site Bicarbonate Actual ABG pH ABG pCO2 ABG pO2 ABG O2 Sat Calc/[place] ABG O2 Content ABG Base Excess ABG Hematocrit ABG Hemoglobin ABG Oxyhemoglobin ABG Carboxyhemoglobin ABG Methemoglobin ABG Deoxyhemoglobin Neil Test A-a O2 Gradient Ionized Calcium Mode of Support Inspired O2 Sodium Potassium 3.9 Chloride Carbon Dioxide Anion Gap BUN Creatinine Estimated GFR (MDRD) Glucose POC Glucose 179 H Calcium Total Bilirubin AST ALT Alkaline Phosphatase Creatine Kinase CK-MB (CK-2) 8.2 H* Troponin I 0.034 H Serum Total Protein Albumin Globulin Albumin/Globulin Ratio Thyroxine (T4) TSH 3rd Generation MIGUEL ÁNGEL Screen SS-A/Ro IgG Antibody SS-B/La IgG Antibody Sm (Cab[place]ero) IgG Ab, Quant Scl-70 IgG Ab Double Strand DNA Ab Anti-U1-BUSINESS SERVICES SPECIALIST SALES/snRNP IgG Mitochondria M2 Ab Striated Muscle Ab Anti-Smooth Muscle Ab Thyroperoxidase Ab Anti-Parietal Cell Ab Complement C4 11/19/17 11/19/17 11/20/17 19:29 20:48 01:22 WBC RBC Hgb Hct MCV MCH MCHC RDW Plt Count MPV Neutrophils % (Manual) Band Neuts % (Manual) Lymphocytes % (Manual) Monocytes % (Manual) Metamyelocytes % (Man) Hypochromia Plt Morphology Comment Poikilocytosis Anisocytosis Elliptocytes Specimen Type Puncture Site Bicarbonate Actual ABG pH ABG pCO2 ABG pO2 ABG O2 Sat Calc/[place] ABG O2 Content ABG Base Excess ABG Hematocrit ABG Hemoglobin ABG Oxyhemoglobin ABG Carboxyhemoglobin ABG Methemoglobin ABG Deoxyhemoglobin Neil Test A-a O2 Gradient Ionized Calcium Mode of Support Inspired O2 Sodium Potassium Chloride Carbon Dioxide Anion Gap BUN Creatinine Estimated GFR (MDRD) Glucose POC Glucose 175 H 152 H Calcium Total Bilirubin AST ALT Alkaline Phosphatase Creatine Kinase CK-MB (CK-2) Troponin I Serum Total Protein Albumin Globulin Albumin/Globulin Ratio Thyroxine (T4) 4.8 L TSH 3rd Generation 0.1225 L MIGUEL ÁNGEL Screen SS-A/Ro IgG Antibody SS-B/La IgG Antibody Sm (Caballero) IgG Ab, Quant Scl-70 IgG Ab Double Strand DNA Ab Anti-U1-BUSINESS SERVICES SPECIALIST SALES/snRNP IgG Mitochondria M2 Ab Striated Muscle Ab Anti-Smooth Muscle Ab Thyroperoxidase Ab Anti-Parietal Cell Ab Complement C4 11/20/17 04:40 WBC RBC Hgb Hct MCV MCH MCHC RDW Plt Count MPV Neutrophils % (Manual) Band Neuts % (Manual) Lymphocytes % (Manual) Monocytes % (Manual) Metamyelocytes % (Man) Hypochromia Plt Morphology Comment Poikilocytosis Anisocytosis Elliptocytes Specimen Type art Puncture Site LRA Bicarbonate Actual 17.2 L ABG pH 7.43 ABG pCO2 26.4 L ABG pO2 58.5 L ABG O2 Sat Calc/Katia 91.9 L ABG O2 Content 13.9 L ABG Base Excess -5.9 L ABG Hematocrit 27.3 L ABG Hemoglobin 11.0 L ABG Oxyhemoglobin 89.8 L ABG Carboxyhemoglobin 1.8 ABG Methemoglobin 0.6 ABG Deoxyhemoglobin 7.9 H Neil Test POSITIVE A-a O2 Gradient 167.340 H Ionized Calcium 1.1 L Mode of Support NC Inspired O2 36 Sodium 148 Potassium 4.0 Chloride 114 H Carbon Dioxide Anion Gap BUN Creatinine Estimated GFR (MDRD) Glucose POC Glucose Calcium Total Bilirubin AST ALT Alkaline Phosphatase Creatine Kinase CK-MB (CK-2) Troponin I Serum Total Protein Albumin Globulin Albumin/Globulin Ratio Thyroxine (T4) TSH 3rd Generation MIGUEL ÁNGEL Screen SS-A/Ro IgG Antibody SS-B/La IgG Antibody Sm ([place]ero) IgG Ab, Quant Scl-70 IgG Ab Double Strand DNA Ab Anti-U1-BUSINESS SERVICES SPECIALIST SALES/snRNP IgG Mitochondria M2 Ab Striated Muscle Ab Anti-Smooth Muscle Ab Thyroperoxidase Ab Anti-Parietal Cell Ab Complement C4 CCU Progress Note: A/P - Problems (1) Systemic lupus erythematosus Current Visit: Yes Status: Acute Code(s): M32.9 - SYSTEMIC LUPUS ERYTHEMATOSUS, UNSPECIFIED Qualifiers: Systemic lupus erythematosus organ involvement: other (2) Acute respiratory failure Current Visit: Yes Status: Acute Code(s): J96.00 - ACUTE RESPIRATORY FAILURE , UNSP W HYPOXIA OR HYPERCAPNIA (3) Thrombocytopenia Current Visit: Yes Status: Acute Code(s): D69.6 - THROMBOCYTOPENIA, UNSPECIFIED (4) Anemia Current Visit: Yes Status: Acute Code(s): D64.9 - ANEMIA, UNSPECIFIED (5) Acute renal failure (ARF) Current Visit: Yes Status: Acute - Time Spent with Patient Time: 50% of the time was spent in coordination of care (as documented) at patient's floor/unit and/or counseling patient. Time with Patient: greater than 50 minutes - Plan Plan: Discussed with Dr. Rubio on phone last night at length. I'm concerned about continued tachycardia and tachypnea. Chest X-ray today shows less edema, but I believe she would benefit from additional diuresis. Will repeat echo to reevaluate EF and rule out pericardial effusion. Tongue somewhat better, but after discussing with Rheum, we feel that a concurrent lymphoproliferative disorder needs to be ruled-out (she may need bone marrow bx). Will consult Heme /onc for input. Right now she seems more relaxed on Bipap. If intubation needed down the line, she would likely need ENT for fiberoptic nasal. She was given Cytoxan last night, but it will take several days to take effect.
[2017-11-20] MEDS ORDERED: Lorazepam 2 MG/ML VIAL SLOW IVP PRN (05:52)
[2017-11-20] MEDS ORDERED: Furosemide 20 MG/2 ML VIAL IVP SCH (06:00)
[2017-11-20 06:18] LABS: Potassium 4.1 mmol/L (3.5-5.1); Sodium 146 mmol/L (136-145)
[2017-11-20 06:19] LABS: ALT (SGPT) 31 U/L (8-55); AST (SGOT) 83 U/L (5-34); Albumin 2.2 g/dL (3.5-5.0); Alkaline Phosphatase 48 U/L (40-150); Anion Gap 13 mmol/L (10-20); BUN (Urea Nitrogen) 46 mg/dL (7.0-18.7); Bilirubin, Total 1.3 mg/dL (0.2-1.2); CK (CPK) 1206 U/L (29-168); Calc. Creatinine Clearance 53 mL/min (70-130); Calcium 7.7 mg/dL (7.8-10.44); Carbon Dioxide 18 mmol/L (22-29); Chloride 119 mmol/L (98-107); Estimated GFR-MDRD 33; Globulin 4.3 g/dL (2.4-3.5); Glucose 149 mg/dL (70-105); Magnesium 2.6 mg/dL (1.6-2.6); Phosphorus 3.4 mg/dL (2.3-4.7); Protein, Total 6.5 g/dL (6.0-8.3)
[2017-11-20] MEDS ORDERED: Sedation Protocol FS ONE (07:06)
[2017-11-20] MEDS ORDERED: Fentanyl BOLUS 250 ML IVPB PRN (07:17)
[2017-11-20] MEDS ORDERED: DISCONTINUE PREVIOUS NARCOTIC PAIN MEDICATIONS AND BENZODIAZEPINES FS SCH (07:17)
[2017-11-20 07:20] LABS: Antinuclear AB Positive (Negative); Smith Antibodies <0.2 AI (0.0-0.9); U1RNP/snRNP IGG Autoabs 0.7 AI (0.0-0.9)
[2017-11-20 07:20] LABS: Hemoglobin 7.5 g/dL (12.0-16.0); Mean Corpuscular HGB CONC 32.8 g/dL (32.0-36.0); Mean Corpuscular Hemoglobin 29.5 pg (27.0-31.0); Mean Corpuscular Volume 89.9 fl (81.0-99.0); Mean Platelet Volume 6.5 fL (7.4-10.4); Platelet Count 76 thou/uL (130-400); RBC Distribution Width 15.8 % (11.5-14.5); Red Blood Cell (RBC) Count 2.55 mill/uL (4.20-5.40); White Blood Cell (WBC) Count 8.4 thou/uL (4.8-10.8)
[2017-11-20] MEDS ORDERED: Morphine 2 MG/ML SYRINGE SLOW IVP PRN (07:23)
[2017-11-20 07:28] LABS: Band 13 % (5-11); Lymphocytes 5 % (21-51); MDiff Complete? YES; Metamyelocyte 1 % (0-0); Monocytes 3 % (0-10); Neutrophil 78 % (42-75); Ovalocytes MODERATE= 6-15 cells (100X) (0-1/hpf); Polychromasia SLIGHT = 2-3 cells (100X) (0-2/hpf); Tear Drops SLIGHT = 2-5 cells (100X) (0-1/hpf); Toxic Granulation SLIGHT
[2017-11-20] MEDS ORDERED: Fentanyl 100 MCG/2 ML VIAL SLOW IVP PRN (08:00)
[2017-11-20] MEDS: Famotidine/PF 20 mg/2ml Vial SLOW IVP SCH ×2 (08:22→21:48)
--- NOTE | 2017-11-20 08:28 | RAD ---
CHEST ONE VIEW: History: Intubated patient. Comparison: Prior day. FINDINGS: Patchy airspace opacities are similar to slightly improving. Small right effusion. No pneumothorax. Cardiac silhouette and mediastinal contours are similar. No acute osseous abnormality. IMPRESSION: Slight interval improvement of the bilateral airspace opacities. POS: [facility]
[2017-11-20] MEDS ORDERED: Midazolam HCl 2 mg/2 ml Vial ONE (09:49)
[2017-11-20] MEDS ORDERED: Fentanyl 100 MCG/2 ML VIAL ONE (09:49)
[2017-11-20] MEDS ORDERED: Lidocaine 2% w/Epinephrine 1:200K 20 ML VIAL ONE (09:50)
[2017-11-20] MEDS ORDERED: Lidocaine 4% Topical Sol 50 ML BOT ONE (09:54)
--- NOTE | 2017-11-20 10:05 | ULT ---
BILATERAL LOWER EXTREMITY VENOUS DOPPLER: History: Evaluate for DVT. Immobility. Pre op. Comparison: None. Technique: Real-time grayscale and color doppler and spectral analysis of bilateral lower extremity v enous systems performed with a linear transducer. Bilateral common femoral, femoral, and proximal por tions of the greater saphenous and deep femoral veins as well as posterior tibial veins. FINDINGS: Normal flow, augmentation, and compression. Mild edema. There are mildly prominent inguinal lymph nod es. IMPRESSION: No DVT. POS: [facility]
[2017-11-20] MEDS: Propofol 1,000 MG/100 ML VIAL IV PRN ×2 (10:45→17:22)
--- NOTE | 2017-11-20 11:11 | RAD ---
ABDOMEN ONE VIEW: History: Dobbhoff placement. FINDINGS: Visualized bowel gas pattern is nonspecific. Metallic tip of a Dobbhoff feeding catheter overlies the left upper quadrant at the expected location of the gastric fundus. Advancing the catheter at least 10 cm would probably result in better positioning. POS: [facility]
[2017-11-20] MEDS: fentaNYL Citrate/PF 2,000 MCG in Sodium Chloride 0.9% 60 ML IV SCH (11:15)
[2017-11-20 11:47] LABS: Actual Bicarbonate (HCO3a) 18.1 mEq/L (22-26); Base Excess (BEa) -7.1 mEq/L (0 (+/-) 2.5); CO2 Tension 34.8 mmHg (35.0-45.0); Calcium, Ionized 1.1 mmol/L (1.12-1.30); Hematocrit-ABG 16.8 % (36.0-47.0); Hemoglobin (Hb) 6.3 g/dL (12.0-16.0); O2 Tension (PaO2) 287.3 mmHg (80.0-100.0); pH, Arterial 7.34 (7.35-7.45)
[2017-11-20 11:48] LABS: Puncture Site RRA
[2017-11-20] MEDS ORDERED: Succinylcholine Chloride 20 MG/ML 10 ml SYRINGE FS ONE (13:24)
[2017-11-20] MEDS ORDERED: PROPOFOL 200 MG/20 ML VIAL ONE (13:24)
[2017-11-20 14:29] LABS: Reference Lab Name LABCORP
[2017-11-20 14:30] LABS: Ref Lab Test Ordered C1Q
[2017-11-20] MEDS: Acetaminophen 650 MG Suppository PR PRN (14:39)
[2017-11-20] MEDS ORDERED: Sodium Chloride 0.9% 15 ML NEB ONE (14:43)
--- NOTE | 2017-11-20 15:13 | RAD ---
CHEST ONE VIEW: HISTORY: Ventilated patient. COMPARISON: Chest one view from the same day. FINDINGS: The weighted feeding tube tip is in the gastric body. The endotracheal tube tip is above the level o f the clavicles. Patchy opacities persist. IMPRESSION: 1. Endotracheal tube tip at the level of the clavicles. 2. Weighted feeding tube tip in the gastric body. Recommend advancing. 3. Similar appearance of the diffuse hilar opacities. POS: [facility]
--- NOTE | 2017-11-20 18:37 | PRG ---
DATE OF SERVICE: 11/20/2017 SUBJECTIVE: Status post intubation. X-ray post-intubation now shows predominantly right-sided infil trate, less infiltrate on the left side. Blood gas was done, pO2 of 287, pCO2 34, pH 7.34, tidal vol ume 450, 100%, rate of 16. Creatinine is 1.79. OBJECTIVE: GENERAL: On examination, she is sedated. CHEST: Decreased breath sounds, no wheezing. CARDIAC: Sinus tach. ABDOMEN: Soft. IMPRESSION: 1. Systemic lupus with multiorgan failure. 2. Pneumonia. 3. Renal failure. 4. Thrombocytopenia. PLAN: Continue present antibiotics, clindamycin, high-dose steroids, Cytoxan, Zosyn, hydration. Dr. Cook will follow the patient tomorrow.
[2017-11-20] MEDS: Diltiazem 125 MG in Sodium Chloride 0.9% 100 ML IVPB SCH (19:37)
--- NOTE | 2017-11-20 22:51 | PDOC.PN ---
- Subjective Encounter Start Date: 11/20/17 Encounter Start Time: 17:30 Patient seen and examined. Overnight events noted. On [facility] Vent - Objective Resuscitation Status: Resuscitation Status FULL:Full Resuscitation MAR Reviewed: Yes Vital Signs & Weight: Vital Signs (12 hours) Temp Pulse Resp BP Pulse Ox 11/20/17 22:00 101 H 20 11/20/17 20:00 98.8 F 21 H 11/20/17 18:18 108 H 11/20/17 18:17 107 H 21 H 100 11/20/17 18:00 23 H 11/20/17 16:00 22 H 11/20/17 15:00 99.7 F H 11/20/17 14:42 129 H 119/80 11/20/17 14:00 27 H 11/20/17 13:33 124 H 101/68 11/20/17 13:32 122 H 25 H 99 11/20/17 12:00 32 H 11/20/17 11:02 124 H 127/87 11/20/17 11:00 98.8 F Weight Admit Weight 155 lb 3.287 oz Weight 165 lb 2.02 oz Most Recent Monitor Data Heart Rate from ECG 105 NIBP 128/81 NIBP BP-Mean 92 Respiration from ECG 21 SpO2 100 I&O: 11/19/17 11/20/17 11/21/17 06:59 06:59 06:59 Intake Total 2868.6 2124 620.4 Output Total 1350 2360 1155 Balance 1518.6 -236 -534.6 Result Diagrams: 11/21/17 05:45 11/21/17 05:45 Additional Labs: Accuchecks 11/20/17 11/20/17 11/20/17 17:26 10:00 01:22 POC Glucose 189 H 146 H 152 H EKG Reviewed by me: Yes (Tele SR) Phys Exam - Physical Examination Pt on [facility] Vent Respiratory: no wheezing Scat rales. Coarse BS B/L Cardiovascular: RRR, no rub Gastrointestinal: soft, positive bowel sounds Musculoskeletal: no edema Dx/Plan - Plan DVT proph w/SCDs IMPRESSION: 1. Angioedema/?Lupus flare - s/p Pulse dose steroids/Cytoxan 2. Sepsis with acute organ dysfunction- cultures negative 3. Acute kidney injury - ?Lupus nephropathy 4. Metabolic acidosis/lactic acidosis. 5. Rhabdomyolysis - CK improving 6. Pancytopenia s/p 1 unit PRBC 7. h/o Systemic lupus erythematosus, on chronic steroids/Leukopenia/ Thrombocytopenia/Proteinuria/Abn LFTs/Mild hyponatremia. PLAN: * Critical care/Rheumat/Nephro/ENT following * AM labs * Hematology consulted * Cont Atbx/Steroids/H1/H2 blockers * Cont current meds as below Review of Systems - Review of Systems Other: Cannot obtain due to sedation - Medications/Allergies Allergies/Adverse Reactions: Allergies Allergy/AdvReac Type Severity Reaction Status Date / Time No Known Drug Allergies Allergy Verified 11/15/17 16:10 Medications: Current Medications Acetaminophen (Tylenol) 650 mg FL Q4H PRN PRN Reason: Headache/Fever or Pain Last Admin: 11/20/17 14:39 Dose: 650 mg Acetaminophen (Tylenol Elixir) 650 mg PO Q6H PRN PRN Reason: Fever/Mild Pain Albuterol/Ipratropium (Duoneb) 3 ml NEB [id number] LESLI Last Admin: 11/20/17 18:17 Dose: 3 ml Albuterol/Ipratropium (Duoneb) 3 ml NEB [id number] PRN PRN Reason: SOB &/or Wheezing Last Admin: 11/19/17 04:07 Dose: 3 ml Bisacodyl (Dulcolax) 10 mg FL Q24H PRN PRN Reason: Constipation Clindamycin Phosphate/Dextrose (Cleocin) 300 mg IVPB 0500,1100,1700,2300 [facility] Last Admin: 11/20/17 17:22 Dose: 300 mg Dextrose/Water (Dextrose 50%) 25 gm SLOW IVP PRN PRN PRN Reason: Hypoglycemia Diphenhydramine HCl (Benadryl) 25 mg IVP Q8HR [facility]ES[facility] Last Admin: 11/20/17 21:48 Dose: 25 mg Famotidine (Pepcid) 20 mg SLOW IVP BID [facility] Last Admin: 11/20/17 21:48 Dose: 20 mg Fentanyl (Sublimaze) 50 mcg SLOW IVP Q2H PRN PRN Reason: Pain Last Admin: 11/20/17 08:22 Dose: 50 mcg Glucagon (Glucagon) 1 mg IM PRN PRN PRN Reason: Hypoglycemia Hydralazine HCl (Apresoline) 10 mg SLOW IVP Q4H PRN PRN Reason: SBP Greater Than 180 Piperacillin Sod/Tazobactam (Sod 3.375 gm/ Sodium Chloride) 100 mls @ 200 mls/ hr IVPB 0200,0800,1400,2000 [facility] Last Admin: 11/20/17 21:48 Dose: 100 mls Potassium Chloride 40 meq/ (Sodium Chloride) 270 mls @ 135 mls/hr IVPB ASDIR PRN PRN Reason: FOR SERUM K+ 2.5 - 3.5 Last Admin: 11/19/17 10:37 Dose: 270 mls Potassium Chloride 40 meq/ (Device) 100 mls @ 50 mls/hr IVPB ASDIR PRN PRN Reason: FOR SERUM K+ 2.5 - 3.5 Magnesium Sulfate 1 gm/ Sodium (Chloride) 102 mls @ 102 mls/hr IV PRN PRN PRN Reason: MAG LEVEL 1.4 - 2.0 Magnesium Sulfate 2 gm/ Device 100 mls @ 100 mls/hr IVPB ASDIR PRN PRN Reason: MAGNESIUM < 1.4 Last Admin: 11/16/17 22:56 Dose: 100 mls Potassium Phosphate 9 mmol/ (Sodium Chloride) 103 mls @ 25.75 mls/hr IVPB ASDIR PRN PRN Reason: Phosphate 1.0-1.8 Potassium Phosphate 12 mmol/ (Sodium Chloride) 254 mls @ 63.5 mls/hr IV ASDIR PRN PRN Reason: Serum phosphate 0.5-0.9 Potassium Phosphate 15 mmol/ (Sodium Chloride) 255 mls @ 63.75 mls/hr IV ASDIR PRN PRN Reason: Serum Phos < 0.5 Dextrose/Water (D5w) 1,000 mls @ 0 mls/hr IV .Q0M PRN; As Directed PRN Reason: Hypoglycemia Diltiazem HCl 125 mg/ Sodium (Chloride) 125 mls @ 5 mls/hr IVPB INF LESLI; 5 MG/ HR PRN Reason: Protocol Last Admin: 11/20/17 19:37 Dose: 125 mls Fentanyl Citrate (Fentanyl Bolus) 250 mls @ 0 mls/hr IVPB PRN PRN; As Directed PRN Reason: Breakthrough pain Stop: 12/20/17 07:17 Fentanyl Citrate 2,000 mcg/ (Sodium Chloride) 100 mls @ 0 mls/hr IV INF LESLI PRN Reason: As Directed Last Admin: 11/20/17 11:15 Dose: 100 mls Insulin Human Lispro (Humalog) 0 units SC .MILD SLIDING SCALE PRN PRN Reason: Mild Correctional Scale Last Admin: 11/20/17 17:26 Dose: 2 unit Lactulose (Lactulose) 20 gm PO DAILYPRN PRN PRN Reason: Constipation Lorazepam (Ativan) 2 mg SLOW IVP Q2H PRN PRN Reason: Anxiety to achieve [place] 2-3 Stop: 12/20/17 07:17 Magnesium Oxide (Magnesium Oxide) 400 mg PO BIDPRN PRN PRN Reason: FOR SERUM MAG 1.4 - 2.0 Magnesium Oxide (Magnesium Oxide) 800 mg PO PRN PRN PRN Reason: FOR SERUM MAG < 1.4 Methylprednisolone Sodium Succinate (Solu-Medrol) 40 mg IVP Q6HR [facility] Last Admin: 11/20/17 17:22 Dose: 40 mg Mineral Oil/White Petrolatum (Lacri-Lube Ointment) 0 gm EA EYE PRN PRN PRN Reason: Dry Eyes Mineral Oil/White Petrolatum (Eucerin Cream) 0 gm TOP BIDPRN PRN PRN Reason: Dry Skin Miscellaneous Medication (Phos-Nak) 1 pkt PO TIDPRN PRN PRN Reason: FOR PHOS LEVEL 1.0 - 1.8 Miscellaneous Medication (Phos-Nak) 2 pkt PO TIDPRN PRN PRN Reason: FOR PHOS LEVEL 0.5 - 1.0 Miscellaneous Medication (Pharmacy To Dose) 0 each IVPB ASDIR PRN PRN Reason: Pharmacy to Dose [RENALLY ADJ Morphine Sulfate (Morphine) 2 mg SLOW IVP Q2H PRN PRN Reason: BREAKTHRU PAIN Ccu Electrolyte (Replacement Protocol) 0 each FS PRN PRN PRN Reason: FOR ELECTROLYTE REPLACEMENT Discontinue Previous Narcotic Pain Medications And Benzodiazepines 1 each FS .ONE [facility] Stop: 12/20/17 07:17 Ondansetron HCl (Zofran Odt) 4 mg PO Q6H PRN PRN Reason: Nausea/Vomiting Ondansetron HCl (Zofran) 4 mg IVP Q6H PRN PRN Reason: Nausea/Vomiting Potassium Chloride (K-Dur) 40 meq PO ASDIR PRN PRN Reason: FOR SERUM K+ 2.5 - 3.5 Potassium Chloride (Klor-Con) 40 meq PER TUBE ASDIR PRN PRN Reason: FOR SERUM K+ 2.5-3.5 Propofol (Diprivan) 1,000 mg IV INF PRN; Protocol PRN Reason: TO ACHIEVE [place] SCORE 2-3 Stop: 12/20/17 07:17 Last Admin: 11/20/17 17:22 Dose: 1,000 mg Sodium Chloride (Flush - Normal Saline) 10 ml IVF PRN PRN PRN Reason: Saline Flush
--- NOTE | 2017-11-21 00:52 | PRG ---
DATE OF SERVICE: 11/20/2017 SUBJECTIVE: Patient was seen and examined at bedside and overnight events noted. Patient denies any shortness of breath or chest pain or palpitation. No history of nausea or vomitin g or diarrhea or fever or chills or cramps. OBJECTIVE: GENERAL: This is a well-built female, in no apparent distress. VITAL SIGNS: Temperature 99.7, pulse of 110, respiratory rate 20, blood pressure 103/70. HEENT: Atraumatic, normocephalic. NECK: Supple. CARDIOVASCULAR: S1, S2 heard. Rate and rhythm regular. RESPIRATORY: Clear to auscultation. MUSCULOSKELETAL: No edema. No tenderness. DERMATOLOGIC: No skin rash. NEUROLOGIC: Alert and awake. PSYCHIATRIC: Mood and affect normal. LABORATORY DATA: Potassium is 4.1, BUN 46, creatinine 1.7. ASSESSMENT AND PLAN: 1. Acute kidney injury on chronic kidney disease. Renal function seems to be stable. 2. 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 3. Acidosis and some proteinuria. 4. Anemia. 5. Edema. 6. Hypertension. 7. seems to be stable. Continue on steroids.
[2017-11-21] MEDS: Propofol 1,000 MG/100 ML VIAL IV PRN ×3 (01:52→16:57)
[2017-11-21] MEDS: Piperacillin/Tazobactam 3.375 GM in Sodium Chloride 0.9% 100 ML IVPB SCH ×4 (01:52→20:46)
[2017-11-21] MEDS: diphenhydrAMINE 50 MG/ML VIAL IVP SCH ×3 (05:38→21:26)
[2017-11-21] MEDS: Clindamycin/D5W 300 MG/50 ML BAG IVPB SCH (05:40)
[2017-11-21] MEDS: HumaLOG 300 UNITS/3 ML VIAL SC PRN ×4 (05:40→21:24)
[2017-11-21 06:07] LABS: Hemoglobin 5.8 g/dL (12.0-16.0); Mean Corpuscular HGB CONC 32.8 g/dL (32.0-36.0); Mean Corpuscular Hemoglobin 29.9 pg (27.0-31.0); Mean Corpuscular Volume 91.1 fl (81.0-99.0); Mean Platelet Volume 10.4 fL (7.4-10.4); Platelet Count 96 thou/uL (130-400); Red Blood Cell (RBC) Count 1.94 mill/uL (4.20-5.40); White Blood Cell (WBC) Count 6.5 thou/uL (4.8-10.8)
[2017-11-21 06:14] LABS: ALT (SGPT) 31 U/L (8-55); AST (SGOT) 72 U/L (5-34); Albumin 2.2 g/dL (3.5-5.0); Alkaline Phosphatase 41 U/L (40-150); Anion Gap 10 mmol/L (10-20); BUN (Urea Nitrogen) 57 mg/dL (7.0-18.7); CK (CPK) 1126 U/L (29-168); Calc. Creatinine Clearance 57 mL/min (70-130); Calcium 7.7 mg/dL (7.8-10.44); Carbon Dioxide 19 mmol/L (22-29); Chloride 123 mmol/L (98-107); Estimated GFR-MDRD 35; Globulin 3.9 g/dL (2.4-3.5); Glucose 201 mg/dL (70-105); Magnesium 2.6 mg/dL (1.6-2.6); Protein, Total 6.1 g/dL (6.0-8.3); Sodium 147 mmol/L (136-145)
[2017-11-21 06:16] LABS: Lymphocytes 5 % (21-51); MDiff Complete? YES; Metamyelocyte 1 % (0-0); Monocytes 1 % (0-10); Neutrophil 93 % (42-75); PLT Morphology Comment Appears Decreased
[2017-11-21 07:27] LABS: Actual Bicarbonate (HCO3a) 18.8 mEq/L (22-26); Base Excess (BEa) -5.5 mEq/L (0 (+/-) 2.5); CO2 Tension 30.7 mmHg (35.0-45.0); Calcium, Ionized 1.2 mmol/L (1.12-1.30); Hematocrit-ABG 14.3 % (36.0-47.0); Hemoglobin (Hb) 5.7 g/dL (12.0-16.0); O2 Tension (PaO2) 164.9 mmHg (80.0-100.0); Puncture Site RRA; pH, Arterial 7.41 (7.35-7.45)
[2017-11-21 07:28] LABS: ALV-art Gradient 84.325 (0-20)
[2017-11-21] MEDS ORDERED: Rocuronium Bromide 50 MG/5 ML VIAL IVP SCH (07:54)
--- NOTE | 2017-11-21 08:28 | PRG ---
DATE OF SERVICE: 11/21/2017 This is 45 minutes critical care time. SUBJECTIVE: Ms. 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 She is awake and is able to fol low commands for me today. PHYSICAL EXAMINATION: VITAL SIGNS: Temperature is 98.8 with a T-max of 99.7, pulse generally running in the 80s-100s, bloo d pressure 130/79. A 24-hour intake 1575, output 1745. HEENT: Unremarkable except for the endotracheal tube and some mild swelling of her tongue. NECK: No JVD. LUNGS: She has diffuse crackles bilaterally. CARDIOVASCULAR: S1, S2, slightly tachycardic without murmur. ABDOMEN: Soft, nontender, no hepatosplenomegaly. EXTREMITIES: No clubbing, cyanosis. She has trace edema throughout. LABORATORY DATA: Sodium 147, potassium 5, chloride 123, CO2 19, BUN 57, creatinine 1.6, glucose 201. CPK 1126. White blood cell count 6.5, hemoglobin 5.8, hematocrit 17.7, platelet count 96. Blood g as, pH 7.41, pCO2 of 30, pO2 164 on SIMV rate 16, tidal volume 450, PEEP 5, pressure support 10, FiO2 50%. X-RAY FINDINGS: Chest x-ray shows bilateral infiltrates. ASSESSMENT: 1. Alveolar hemorrhage syndrome. 2. Lupus with effects including tongue swelling, the alveolar hemorrhage syndrome and renal dysfunct ion. 3. Possible concurrent pneumonia. 4. Hypernatremia. PLAN: 1. Bronchoscopy with lavage with staining for hemosiderin alveolar macrophages and pneumocystis 2. Continue antibiotics. 3. Transfuse, she is getting a unit of packed red blood cells. 4. Continue high dose steroids.
[2017-11-21] MEDS: Sodium Chloride 0.45% 1,000 ML IV SCH ×2 (08:32→21:29)
[2017-11-21] MEDS: Famotidine/PF 20 mg/2ml Vial SLOW IVP SCH ×2 (08:32→20:46)
[2017-11-21] MEDS: Lorazepam 2 MG/ML VIAL SLOW IVP PRN ×2 (08:58→16:55)
--- NOTE | 2017-11-21 09:08 | RAD ---
CHEST ONE VIEW: HISTORY: A 32-year-old female with respiratory insufficiency. COMPARISON: 11/20/2017. FINDINGS/IMPRESSION: NG tube and endotracheal tube in satisfactory location. There are fairly extensive bilateral interst itial and alveolar nodular parenchymal changes throughout both lungs, somewhat confluent in the right mid and lower lung zones showing little change from 11/20/2017, possibly mild improvement from 11/19. Continued short-term follow-up for clearing. POS: [facility]
--- NOTE | 2017-11-21 10:02 | PRG ---
DATE OF SERVICE: 11/21/2017 SUBJECTIVE: The patient was seen and examined in ICU, intubated and asked to re-intubate. OBJECTIVE: GENERAL: This is a well-built female, intubated and seen in ICU. VITAL SIGNS: Temperature 98, pulse 94, respiratory rate 20, blood pressure 138/85. HEENT: Head is atraumatic, normocephalic. NECK: Supple. CARDIOVASCULAR: S1, S2 heard. RESPIRATORY: Clear to auscultation. GASTROINTESTINAL: Abdomen is soft. MUSCULOSKELETAL: 1+ edema. DERMATOLOGIC: No skin rash. NEUROLOGIC: Intubated. LABORATORY DATA: Potassium is 5.0, sodium is 147. BUN is 57, creatinine is 1.6. ASSESSMENT AND PLAN: 1. Acute kidney injury. Creatinine is better. BUN going up most likely from steroids. 2. Hyperkalemia, mild. 3. Hypernatremia. 4. Hyperchloremia. 5. Acidosis. Recommend free water. 6. Hypoalbuminemia. 7. Lupus nephritis. 8. Anemia, severe. 9. Renal function is stable. We will follow up with Rheumatology for further recommendations.
--- NOTE | 2017-11-21 14:49 | OP ---
PROCEDURE: Bronchoscopy. PREOPERATIVE DIAGNOSIS: Alveolar hemorrhage syndrome. POSTOPERATIVE DIAGNOSIS: Alveolar hemorrhage syndrome. ANESTHESIA: She was on a propofol drip. She also received Zemuron 50 mg IV one time. DESCRIPTION OF PROCEDURE: The bronchoscope was placed through an adapter into the patient's 7.0 endo tracheal tube. The elizabeth was identified and was sharp. The airways were clear bilaterally. The sc ope was wedged in the right middle lobe and a bronchoalveolar lavage was approximately 100 mL of norm al saline was performed. This resulted in pink colored fluid, which was consistent with alveolar hem orrhage syndrome. The fluid was sent for routine studies including hemosiderin laden macrophages, pn eumocystis smear, and culture and sensitivity. She tolerated the procedure well.
--- NOTE | 2017-11-21 16:55 | DIS ---
DATE OF DISCHARGE: 11/21/2017 DISCHARGE DISPOSITION: To [facility] in [place] for higher level of care. DISCHARGE MEDICATIONS: 1. Solu-Medrol 40 mg q.6 hourly. 2. Zosyn 3.375 q.6 hourly. 3. Ventilation sedation protocol. INPATIENT CONSULTANTS: 1. Pulmonary, Dr. Valdez. 2. Nephrology, Dr. Reed. 3. Rheumatology, Dr. Mathew. BRIEF HOSPITAL COURSE: The patient is a 32-year-old female with systemic lupus erythematosus, on Pre dnisone 5 mg daily for the last one and a half months, presented to emergency room with tongue swelli ng. A CT scan in the emergency room was consistent with edema in the aryepiglottic folds and epiglot titis, requiring emergent intubation through fiberoptic nasal airway by ENT. She was started on broa d spectrum antibiotics as well as steroid, H1 and H2 neri for possible angioedema. WBC count on a dmission was 4.8 with 26% neutrophils. Her MIGUEL ÁNGEL was positive with greater than 300 double stranded DN A with the C3 of less than 22 and C4 of less than 2.9. Please refer to the history and physical for further details. The patient was admitted to the Intensive Care Unit with the above diagnosis. The case was discussed with Rheumatology, Dr. Mathew, who recommended pulse dose steroids that was administered for 3 day s. She was extubated on 11/19/2017. However, due to respiratory distress, she was reintubated by EN T. She was seen by Nephrology for renal failure. She received Cytoxan yesterday. This morning, the patient underwent bronchoscopy that was consistent with alveolar hemorrhage syndrome. Rheumatology recommended possible plasma exchange, for which the patient will be transferred to [facility] in [facility]. FINAL DIAGNOSES: 1. Alveolar hemorrhage syndrome. 2. Lupus exacerbation, status post pulse dose steroids and one dose of Cytoxan yesterday. 3. Acute kidney injury. 4. Questionable pneumonia. 5. Metabolic acidosis/Lactic acidosis. 6. Rhabdomyolysis. Her CK today is 1200. CK on admission was 3500. 7. Pancytopenia. 8. Status post 3 units packed red blood cells this admission. 9. Proteinuria. 10. Abnormal liver function tests. 11. Hyponatremia on admission. Patient is hypernatremic with sodium of 147 on the day of discharge. Plan of care was discussed with the patient's family at the bedside. They stated understanding. Total time coordinating the discharge of this patient was 40 minutes.
[2017-11-22] MEDS: Propofol 1,000 MG/100 ML VIAL IV PRN ×4 (00:15→20:15)
[2017-11-22] MEDS: fentaNYL Citrate/PF 2,000 MCG in Sodium Chloride 0.9% 60 ML IV SCH (00:41)
[2017-11-22] MEDS: Piperacillin/Tazobactam 3.375 GM in Sodium Chloride 0.9% 100 ML IVPB SCH ×4 (03:00→20:15)
[2017-11-22 05:37] LABS: ALT (SGPT) 33 U/L (8-55); AST (SGOT) 81 U/L (5-34); Alkaline Phosphatase 43 U/L (40-150); Anion Gap 12 mmol/L (10-20); BUN (Urea Nitrogen) 56 mg/dL (7.0-18.7); Bilirubin, Total 0.9 mg/dL (0.2-1.2); CK (CPK) 1292 U/L (29-168); Calc. Creatinine Clearance 65 mL/min (70-130); Calcium 7.9 mg/dL (7.8-10.44); Carbon Dioxide 18 mmol/L (22-29); Chloride 121 mmol/L (98-107); Estimated GFR-MDRD 41; Globulin 3.8 g/dL (2.4-3.5); Glucose 155 mg/dL (70-105); Magnesium 2.3 mg/dL (1.6-2.6); Phosphorus 3.4 mg/dL (2.3-4.7); Potassium 5.3 mmol/L (3.5-5.1); Protein, Total 5.8 g/dL (6.0-8.3); Sodium 146 mmol/L (136-145)
[2017-11-22 05:55] LABS: Band 4 % (5-11); Hemoglobin 7.9 g/dL (12.0-16.0); Lymphocytes 4 % (21-51); MDiff Complete? YES; Mean Corpuscular HGB CONC 33.1 g/dL (32.0-36.0); Mean Corpuscular Hemoglobin 30.7 pg (27.0-31.0); Mean Corpuscular Volume 92.7 fl (81.0-99.0); Mean Platelet Volume 10.4 fL (7.4-10.4); Metamyelocyte 2 % (0-0); Monocytes 3 % (0-10); Neutrophil 87 % (42-75); PLT Morphology Comment Appears Decreased; Platelet Count 98 thou/uL (130-400); RBC Distribution Width 14.9 % (11.5-14.5); Red Blood Cell (RBC) Count 2.59 mill/uL (4.20-5.40); White Blood Cell (WBC) Count 8.9 thou/uL (4.8-10.8)
[2017-11-22] MEDS: diphenhydrAMINE 50 MG/ML VIAL IVP SCH ×3 (06:27→21:59)
[2017-11-22 06:57] LABS: Actual Bicarbonate (HCO3a) 18.5 mEq/L (22-26); Base Excess (BEa) -5.6 mEq/L (0 (+/-) 2.5); CO2 Tension 30.4 mmHg (35.0-45.0); Calcium, Ionized 1.3 mmol/L (1.12-1.30); Hematocrit-ABG 21.2 % (36.0-47.0); Hemoglobin (Hb) 7.8 g/dL (12.0-16.0); O2 Tension (PaO2) 114.3 mmHg (80.0-100.0); Puncture Site RRA
[2017-11-22] MEDS: Famotidine/PF 20 mg/2ml Vial SLOW IVP SCH ×2 (07:53→22:00)
[2017-11-22] MEDS: Sodium Chloride 0.45% 1,000 ML IV SCH (07:55)
[2017-11-22] MEDS ORDERED: Sodium Bicarb 50 MEQ/50 ML Abboject 8.4% SYRINGE ONE (08:06)
--- NOTE | 2017-11-22 08:42 | RAD ---
PORTABLE CHEST ONE VIEW: 11/22/2017 3:22 a.m. HISTORY: Respiratory failure. COMPARISON: Exam from the previous day. FINDINGS: Endotracheal tube and feeding tube remain in place. The heart size is normal. Bilateral parenchymal changes show minimal improvement. No pneumothoraces or large effusions are seen. POS: [facility]
--- NOTE | 2017-11-22 10:00 | PRG ---
DATE OF SERVICE: 11/22/2017 Thirty five minutes of critical care time. SUBJECTIVE: Ms. Otto remains intubated on mechanical ventilation. She has done extremely well over the last 24 hours. PHYSICAL EXAMINATION: VITAL SIGNS: Temperature is 98.4 with T max of 99.2, pulse 81, blood pressure 144/85. A 24 hour int christel 4194 and output 2300. HEENT: Unremarkable. NECK: No JVD. LUNGS: Few crackles in the bases. CARDIAC: S1 and S2 regular. ABDOMEN: Soft. EXTREMITIES: Edematous hands. IMAGING DATA AND LABORATORY DATA: Her chest x-ray shows clearing compared to 11/19/2017. Endotrache al tube is in good position. A pH 7.40, pCO2 of 30, pO2 114, SIMV rate 16, tidal volume 450, PEEP 5, pressure support 12, FiO2 40%. Sodium 146, potassium 5.3, chloride 121, CO2 18, BUN 56, creatinine 1.4, glucose 155. White blood cell count 8.9, hematocrit 24.0, and platelet count 98. ASSESSMENT: 1. Systemic lupus erythematosus with flare. 2. Alveolar hemorrhage syndrome. 3. Slightly reduced tongue swelling compared to previous. 4. Possible concurrent pneumonia. 5. Hypernatremia. 6. Mild hyperkalemia. PLAN: 1. Awaiting results of the bronchoalveolar lavage from yesterday. 2. Continue antibiotics. 3. Continue steroids. 4. She received Cytoxan 3 days ago - we are waiting for the effects from that. 5. Maybe transferring to [facility] for further subspecialty evaluation if a bed becomes available a t that [facility]. 6. I discussed in detail with the patient's .
[2017-11-22] MEDS: HumaLOG 300 UNITS/3 ML VIAL SC PRN ×3 (10:06→21:59)
[2017-11-22] MEDS: Metoclopramide HCl 10 MG/2 ML VIAL IVP SCH ×3 (12:14→22:00)
[2017-11-22] MEDS: Lorazepam 2 MG/ML VIAL SLOW IVP PRN ×2 (13:34→23:12)
--- NOTE | 2017-11-22 14:47 | PDOC.PN ---
- Subjective Encounter Start Date: 11/22/17 Encounter Start Time: 13:00 -: non-verbal Pt is awake but Intubated, Noded her head when asked how she was doing. - Objective Resuscitation Status: Resuscitation Status FULL:Full Resuscitation MAR Reviewed: Yes Vital Signs & Weight: Vital Signs (12 hours) Temp Pulse Resp BP Pulse Ox 11/22/17 14:00 17 11/22/17 12:43 82 139/86 11/22/17 12:00 98.8 F 20 11/22/17 10:07 94 129/83 11/22/17 10:00 18 11/22/17 08:00 99.6 F 98 20 100 11/22/17 07:30 81 134/78 11/22/17 06:00 20 11/22/17 04:00 98.4 F 20 Weight Admit Weight 155 lb 3.287 oz Weight 167 lb 12.348 oz Most Recent Monitor Data Heart Rate from ECG 98 NIBP 155/89 NIBP BP-Mean 126 Respiration from ECG 17 SpO2 100 I&O: 11/21/17 11/22/17 11/23/17 06:59 06:59 06:59 Intake Total 1575.1 4194 Output Total 1745 2300 695 Balance -169.9 1894 -695 Result Diagrams: 11/22/17 05:10 11/22/17 05:10 Additional Labs: Accuchecks 11/22/17 11/21/17 11/21/17 09:57 21:23 17:14 POC Glucose 150 H 188 H 187 H Radiology Reviewed by me: Yes Phys Exam - Physical Examination Neck: no nodes, no JVD Respiratory: no wheezing Cardiovascular: RRR, no significant murmur Gastrointestinal: soft, non-tender Musculoskeletal: no edema, pulses present Dx/Plan (1) Acute renal failure (ARF) Status: Acute (2) Acute respiratory failure Code(s): J96.00 - ACUTE RESPIRATORY FAILURE, UNSP W HYPOXIA OR HYPERCAPNIA Status: Acute (3) Anemia Code(s): D64.9 - ANEMIA, UNSPECIFIED Status: Acute Qualifiers: Anemia type: iron deficiency (4) Systemic lupus erythematosus Code(s): M32.9 - SYSTEMIC LUPUS ERYTHEMATOSUS, UNSPECIFIED Status: Acute Qualifiers: Systemic lupus erythematosus type: unspecified Systemic lupus erythematosus organ involvement: other Qualified Code(s): M32.19 - Other organ or system involvement in systemic lupus erythematosus (5) Thrombocytopenia Code(s): D69.6 - THROMBOCYTOPENIA, UNSPECIFIED Status: Acute - Plan cont current plan of care, espinal catheter, DVT proph w/lovenox IMPRESSION: 1. Angioedema/?Lupus flare - s/p Pulse dose steroids/Cytoxan 2. Sepsis with acute organ dysfunction- cultures negative 3. Acute kidney injury - ?Lupus nephropathy 4. Metabolic acidosis/lactic acidosis. 5. Rhabdomyolysis - 6. Pancytopenia s/p 1 unit PRBC 7. h/o Systemic lupus erythematosus, on chronic steroids/Leukopenia/ Thrombocytopenia/Proteinuria/Abn LFTs/Mild hyponatremia. PLAN: PT is awake off of sedation. Will clsoley Monitor, She is Started on TUbe feeds with Good Residual. Pt is waiting on Transfer to [facility] for higher level of care. Critical care/Rheumat/Nephro/ENT following Rhabdomyolysis improving Hematology consulted follow recommedations Cont Atbx/Steroids/H1/H2 blockers Cont current meds . * . - Discharge Day Encounter end time: 13:30 Review of Systems - Review of Systems Other: Pt intubated unable to Ask ROS. - Medications/Allergies Allergies/Adverse Reactions: Allergies Allergy/AdvReac Type Severity Reaction Status Date / Time No Known Drug Allergies Allergy Verified 11/15/17 16:10 Medications: Current Medications Acetaminophen (Tylenol) 650 mg MS Q4H PRN PRN Reason: Headache/Fever or Pain Last Admin: 11/20/17 14:39 Dose: 650 mg Acetaminophen (Tylenol Elixir) 650 mg PO Q6H PRN PRN Reason: Fever/Mild Pain Albuterol/Ipratropium (Duoneb) 3 ml NEB [id number] Last Admin: 11/22/17 12:43 Dose: 3 ml Albuterol/Ipratropium (Duoneb) 3 ml NEB [id number] PRN PRN Reason: SOB &/or Wheezing Last Admin: 11/19/17 04:07 Dose: 3 ml Bisacodyl (Dulcolax) 10 mg MS Q24H PRN PRN Reason: Constipation Last Admin: 11/22/17 07:54 Dose: 10 mg Dextrose/Water (Dextrose 50%) 25 gm SLOW IVP PRN PRN PRN Reason: Hypoglycemia Diphenhydramine HCl (Benadryl) 25 mg IVP Q8HR [facility] Last Admin: 11/22/17 14:17 Dose: 25 mg Famotidine (Pepcid) 20 mg SLOW IVP BID [facility] Last Admin: 11/22/17 07:53 Dose: 20 mg Fentanyl (Sublimaze) 50 mcg SLOW IVP Q2H PRN PRN Reason: Pain Last Admin: 11/20/17 08:22 Dose: 50 mcg Glucagon (Glucagon) 1 mg IM PRN PRN PRN Reason: Hypoglycemia Hydralazine HCl (Apresoline) 10 mg SLOW IVP Q4H PRN PRN Reason: SBP Greater Than 180 Piperacillin Sod/Tazobactam (Sod 3.375 gm/ Sodium Chloride) 100 mls @ 200 mls/ hr IVPB 0200,0800,1400,2000 [facility] Last Admin: 11/22/17 14:18 Dose: 100 mls Potassium Chloride 40 meq/ (Sodium Chloride) 270 mls @ 135 mls/hr IVPB ASDIR PRN PRN Reason: FOR SERUM K+ 2.5 - 3.5 Last Admin: 11/19/17 10:37 Dose: 270 mls Potassium Chloride 40 meq/ (Device) 100 mls @ 50 mls/hr IVPB ASDIR PRN PRN Reason: FOR SERUM K+ 2.5 - 3.5 Magnesium Sulfate 1 gm/ Sodium (Chloride) 102 mls @ 102 mls/hr IV PRN PRN PRN Reason: MAG LEVEL 1.4 - 2.0 Magnesium Sulfate 2 gm/ Device 100 mls @ 100 mls/hr IVPB ASDIR PRN PRN Reason: MAGNESIUM < 1.4 Last Admin: 11/16/17 22:56 Dose: 100 mls Potassium Phosphate 9 mmol/ (Sodium Chloride) 103 mls @ 25.75 mls/hr IVPB ASDIR PRN PRN Reason: Phosphate 1.0-1.8 Potassium Phosphate 12 mmol/ (Sodium Chloride) 254 mls @ 63.5 mls/hr IV ASDIR PRN PRN Reason: Serum phosphate 0.5-0.9 Potassium Phosphate 15 mmol/ (Sodium Chloride) 255 mls @ 63.75 mls/hr IV ASDIR PRN PRN Reason: Serum Phos < 0.5 Dextrose/Water (D5w) 1,000 mls @ 0 mls/hr IV .Q0M PRN; As Directed PRN Reason: Hypoglycemia Fentanyl Citrate (Fentanyl Bolus) 250 mls @ 0 mls/hr IVPB PRN PRN; As Directed PRN Reason: Breakthrough pain Stop: 12/20/17 07:17 Fentanyl Citrate 2,000 mcg/ (Sodium Chloride) 100 mls @ 0 mls/hr IV INF LESLI PRN Reason: As Directed Last Admin: 11/22/17 00:41 Dose: 100 mls Sodium Chloride (1/2 Normal Saline) 1,000 mls @ 75 mls/hr IV .[id number] [facility] Last Admin: 11/22/17 07:55 Dose: 1,000 mls Insulin Human Lispro (Humalog) 0 units SC .MILD SLIDING SCALE PRN PRN Reason: Mild Correctional Scale Last Admin: 11/22/17 10:06 Dose: 2 unit Lactulose (Lactulose) 20 gm PO DAILYPRN PRN PRN Reason: Constipation Lorazepam (Ativan) 2 mg SLOW IVP Q2H PRN PRN Reason: Anxiety to achieve Olsen 2-3 Stop: 12/20/17 07:17 Last Admin: 11/22/17 13:34 Dose: 2 mg Magnesium Oxide (Magnesium Oxide) 400 mg PO BIDPRN PRN PRN Reason: FOR SERUM MAG 1.4 - 2.0 Magnesium Oxide (Magnesium Oxide) 800 mg PO PRN PRN PRN Reason: FOR SERUM MAG < 1.4 Methylprednisolone Sodium Succinate (Solu-Medrol) 40 mg IVP Q6HR [facility] Last Admin: 11/22/17 12:14 Dose: 40 mg Metoclopramide HCl (Reglan) 10 mg IVP ACHS [facility] Last Admin: 11/22/17 12:14 Dose: 10 mg Mineral Oil/White Petrolatum (Lacri-Lube Ointment) 0 gm EA EYE PRN PRN PRN Reason: Dry Eyes Mineral Oil/White Petrolatum (Eucerin Cream) 0 gm TOP BIDPRN PRN PRN Reason: Dry Skin Miscellaneous Medication (Phos-Nak) 1 pkt PO TIDPRN PRN PRN Reason: FOR PHOS LEVEL 1.0 - 1.8 Miscellaneous Medication (Phos-Nak) 2 pkt PO TIDPRN PRN PRN Reason: FOR PHOS LEVEL 0.5 - 1.0 Miscellaneous Medication (Pharmacy To Dose) 0 each IVPB ASDIR PRN PRN Reason: Pharmacy to Dose [RENALLY ADJ Morphine Sulfate (Morphine) 2 mg SLOW IVP Q2H PRN PRN Reason: BREAKTHRU PAIN Ccu Electrolyte (Replacement Protocol) 0 each FS PRN PRN PRN Reason: FOR ELECTROLYTE REPLACEMENT Discontinue Previous Narcotic Pain Medications And Benzodiazepines 1 each FS .ONE LESLI Stop: 12/20/17 07:17 Ondansetron HCl (Zofran Odt) 4 mg PO Q6H PRN PRN Reason: Nausea/Vomiting Ondansetron HCl (Zofran) 4 mg IVP Q6H PRN PRN Reason: Nausea/Vomiting Potassium Chloride (K-Dur) 40 meq PO ASDIR PRN PRN Reason: FOR SERUM K+ 2.5 - 3.5 Potassium Chloride (Klor-Con) 40 meq PER TUBE ASDIR PRN PRN Reason: FOR SERUM K+ 2.5-3.5 Propofol (Diprivan) 1,000 mg IV INF PRN; Protocol PRN Reason: TO ACHIEVE OLSEN SCORE 2-3 Stop: 12/20/17 07:17 Last Admin: 11/22/17 14:42 Dose: 1,000 mg Sodium Chloride (Flush - Normal Saline) 10 ml IVF PRN PRN PRN Reason: Saline Flush Last Admin: 11/21/17 18:29 Dose: 10 ml
--- NOTE | 2017-11-22 18:47 | PRG ---
DATE OF SERVICE: 11/22/2017 SUBJECTIVE: The patient was seen and examined in ICU and intubated and making urine. OBJECTIVE: GENERAL: This is a thin-built female in no apparent distress. VITAL SIGNS: Temperature 98.7, pulse 107, respiratory 20, blood pressure 132/84. HEENT: Intubated. CARDIOVASCULAR: S1, S2 heard, tachycardic. RESPIRATORY: Clear anteriorly. GASTROINTESTINAL: Abdomen is soft. MUSCULOSKELETAL: No edema. DERMATOLOGIC: No skin rash. NEUROLOGIC: Intubated, but awake. LABORATORY DATA: Hemoglobin 7.9, potassium is 5.3, BUN 56, creatinine 1.4. Sodium is 143. ASSESSMENT AND PLAN: 1. Acute kidney injury. Renal function is getting better. 2. Metabolic acidosis getting worse with hyperkalemia. Plan is to give 1 amp of bicarbonate today. 3. Hyperkalemia. We will give a dose of bicarbonate, limit potassium intake. 4. 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 5. Anemia, severe, status post transfusion. 6. Hyperchloremia. 7. Hypoalbuminemia. 8. Proteinuria, secondary to lupus nephritis. 9. Hypernatremia. Recommend free water. 10. We will continue close monitoring. Renal function is actually better. Electrolytes will be mon itored closely, 1 amp of bicarbonate today. We will follow.
[2017-11-23] MEDS: Propofol 1,000 MG/100 ML VIAL IV PRN ×3 (01:20→13:46)
[2017-11-23] MEDS: Piperacillin/Tazobactam 3.375 GM in Sodium Chloride 0.9% 100 ML IVPB SCH ×4 (02:03→20:58)
[2017-11-23] MEDS: HumaLOG 300 UNITS/3 ML VIAL SC PRN ×3 (04:28→16:42)
[2017-11-23] MEDS: Sodium Chloride 0.45% 1,000 ML IV SCH ×3 (05:56→20:59)
[2017-11-23] MEDS: diphenhydrAMINE 50 MG/ML VIAL IVP SCH ×3 (05:56→21:00)
[2017-11-23 06:26] LABS: Band 6 % (5-11); Lymphocytes 3 % (21-51); MDiff Complete? YES; Mean Corpuscular HGB CONC 32.8 g/dL (32.0-36.0); Mean Corpuscular Hemoglobin 30.5 pg (27.0-31.0); Mean Corpuscular Volume 92.8 fl (81.0-99.0); Mean Platelet Volume 10.5 fL (7.4-10.4); Metamyelocyte 2 % (0-0); Myelocyte 1 % (0-0); Neutrophil 88 % (42-75); PLT Morphology Comment Appears Decreased; Platelet Count 100 thou/uL (130-400); RBC Distribution Width 14.5 % (11.5-14.5); Red Blood Cell (RBC) Count 2.63 mill/uL (4.20-5.40); White Blood Cell (WBC) Count 9.6 thou/uL (4.8-10.8)
[2017-11-23 06:28] LABS: ALT (SGPT) 38 U/L (8-55); AST (SGOT) 90 U/L (5-34); Albumin 2.1 g/dL (3.5-5.0); Alkaline Phosphatase 44 U/L (40-150); Anion Gap 9 mmol/L (10-20); BUN (Urea Nitrogen) 56 mg/dL (7.0-18.7); Bilirubin, Total 1.2 mg/dL (0.2-1.2); Calc. Creatinine Clearance 81 mL/min (70-130); Calcium 8.2 mg/dL (7.8-10.44); Carbon Dioxide 20 mmol/L (22-29); Chloride 119 mmol/L (98-107); Estimated GFR-MDRD 52; Globulin 3.3 g/dL (2.4-3.5); Glucose 163 mg/dL (70-105); Potassium 5.1 mmol/L (3.5-5.1); Protein, Total 5.4 g/dL (6.0-8.3); Sodium 143 mmol/L (136-145)
[2017-11-23 06:33] LABS: Actual Bicarbonate (HCO3a) 19.4 mEq/L (22-26); Base Excess (BEa) -4.8 mEq/L (0 (+/-) 2.5); Calcium, Ionized 1.3 mmol/L (1.12-1.30); Hemoglobin (Hb) 7.7 g/dL (12.0-16.0); O2 Tension (PaO2) 124.6 mmHg (80.0-100.0)
[2017-11-23 06:34] LABS: Puncture Site RRA
[2017-11-23] MEDS ORDERED: Metoclopramide HCl 10 MG/2 ML VIAL IVP PRN (08:09)
[2017-11-23] MEDS: Metoclopramide HCl 10 MG/2 ML VIAL IVP SCH (08:11)
[2017-11-23] MEDS: Famotidine/PF 20 mg/2ml Vial SLOW IVP SCH ×2 (08:16→20:58)
[2017-11-23] MEDS ORDERED: Sodium Bicarb 50 MEQ/50 ML Abboject 8.4% SYRINGE ONE (08:45)
--- NOTE | 2017-11-23 10:13 | PRG ---
DATE OF SERVICE: 11/23/2017 Thirty minutes critical care time. SUBJECTIVE: She remains intubated on mechanical ventilation. She will awaken and shake her head and nod her head to questions. PHYSICAL EXAMINATION: VITAL SIGNS: Temperature 98.7, pulse 138, and blood pressure 129/84. HEENT: She has had decreased swelling in her tongue. NECK: No JVD. LUNGS: Clear anteriorly. CARDIOVASCULAR: S1 and S2, tachycardic. ABDOMEN: Soft, nontender. EXTREMITIES: Generalized edema throughout. LABORATORY DATA: White blood cell count 9.6, hematocrit 24.5, platelet count 100. PH 7.40, pCO2 of 32, pO2 124. Sodium 143, potassium 5.1, chloride 119, CO2 of 20, BUN 56, creatinine 1.2, and glucose 163. ASSESSMENT: 1. Systemic lupus erythematosus with exacerbation. 2. Alveolar hemorrhage syndrome. 3. Slightly reduced the tongue swelling. 4. Possible concurrent pneumonia. 5. Improved hyperkalemia. 6. Improved renal insufficiency. 7. Improved hypernatremia. PLAN: Hopefully, we are starting to see the effects of the Cytoxan kick in. I am encouraged by reduced the swelling of her tongue. She is not weanable from mechanical ventilation until tongue swelling is down. I will go ahead and repeat chest x-ray tomorrow. We are continuing broad spectrum IV antibiotics. Continuing enteral tube feeds. She may end up getting transferred down to [facility] in [place], but we are still on a list for a bed. LINDA
--- NOTE | 2017-11-23 10:56 | PDOC.PN ---
- Subjective Encounter Start Date: 11/23/17 Encounter Start Time: 08:00 Pt remains intubated but no sedation, she did follow commands of wriggling her toes. pt family visited this morning. no concerns noted. - Objective Resuscitation Status: Resuscitation Status FULL:Full Resuscitation MAR Reviewed: Yes Vital Signs & Weight: Vital Signs (12 hours) Temp Pulse Resp BP Pulse Ox 11/23/17 10:00 17 11/23/17 08:00 98.5 F 11/23/17 06:48 103 H 133/90 11/23/17 06:00 16 11/23/17 04:00 98.7 F 18 11/23/17 02:09 93 11/23/17 02:00 16 11/23/17 00:15 104 H 16 100 11/23/17 00:00 99.1 F 23 H Weight Admit Weight 155 lb 3.287 oz Weight 168 lb 6.931 oz Most Recent Monitor Data Heart Rate from ECG 132 NIBP 123/83 NIBP BP-Mean 102 Respiration from ECG 18 SpO2 100 I&O: 11/22/17 11/23/17 11/24/17 06:59 06:59 06:59 Intake Total 4194 3543.2 Output Total 2300 2105 400 Balance 1894 1438.2 -400 Result Diagrams: 11/23/17 05:29 11/23/17 05:29 Additional Labs: Accuchecks 11/23/17 11/23/17 11/22/17 08:53 04:22 21:57 POC Glucose 176 H 169 H 187 H 11/22/17 11/22/17 16:20 09:57 POC Glucose 178 H 150 H Radiology Reviewed by me: Yes Phys Exam - Physical Examination HEENT: PERRLA Neck: no nodes, no JVD Respiratory: no wheezing, no rales Cardiovascular: RRR, no significant murmur, no rub Gastrointestinal: soft, non-tender, no distention, positive bowel sounds Musculoskeletal: edema present Dx/Plan (1) Acute renal failure (ARF) Status: Acute Plan: Patient having good urine output, Renal fucntions improving. pt on maintinaince Fluids. NS @ 75ml/hr (2) Acute respiratory failure Code(s): J96.00 - ACUTE RESPIRATORY FAILURE, UNSP W HYPOXIA OR HYPERCAPNIA Status: Acute Plan: Will follow Pulmonary Recommedations, Continue to Wean her off of Mechanical ventilation when able. Will closley monitor, Continue on IV steroids. (3) Anemia Code(s): D64.9 - ANEMIA, UNSPECIFIED Status: Acute Qualifiers: Anemia type: iron deficiency Plan: Hb improving 8 today. Will continue with iron therapy when extubated. (4) Systemic lupus erythematosus Code(s): M32.9 - SYSTEMIC LUPUS ERYTHEMATOSUS, UNSPECIFIED Status: Acute Qualifiers: Systemic lupus erythematosus type: unspecified Systemic lupus erythematosus organ involvement: other Qualified Code(s): M32.19 - Other organ or system involvement in systemic lupus erythematosus Plan: Will cotninue with IV steroids and IV antibiotics. Persistant swelluing of joints. Plans to transfer pt to [facility] (5) Thrombocytopenia Code(s): D69.6 - THROMBOCYTOPENIA, UNSPECIFIED Status: Acute - Plan cont current plan of care, espinal catheter, continue antibiotics, DVT proph w/ lovenox * . - Discharge Day Encounter end time: 08:35 Review of Systems - Review of Systems Other: Unable to get ROS due to pt being intubated. - Medications/Allergies Allergies/Adverse Reactions: Allergies Allergy/AdvReac Type Severity Reaction Status Date / Time No Known Drug Allergies Allergy Verified 11/15/17 16:10 Medications: Current Medications Acetaminophen (Tylenol) 650 mg ND Q4H PRN PRN Reason: Headache/Fever or Pain Last Admin: 11/20/17 14:39 Dose: 650 mg Acetaminophen (Tylenol Elixir) 650 mg PO Q6H PRN PRN Reason: Fever/Mild Pain Albuterol/Ipratropium (Duoneb) 3 ml NEB [id number] LESLI Last Admin: 11/23/17 06:48 Dose: 3 ml Albuterol/Ipratropium (Duoneb) 3 ml NEB [id number] PRN PRN Reason: SOB &/or Wheezing Last Admin: 11/19/17 04:07 Dose: 3 ml Bisacodyl (Dulcolax) 10 mg ND Q24H PRN PRN Reason: Constipation Last Admin: 11/22/17 07:54 Dose: 10 mg Dextrose/Water (Dextrose 50%) 25 gm SLOW IVP PRN PRN PRN Reason: Hypoglycemia Diphenhydramine HCl (Benadryl) 25 mg IVP Q8HR LESLI Last Admin: 11/23/17 05:56 Dose: 25 mg Famotidine (Pepcid) 20 mg SLOW IVP BID [facility] Last Admin: 11/23/17 08:16 Dose: 20 mg Fentanyl (Sublimaze) 50 mcg SLOW IVP Q2H PRN PRN Reason: Pain Last Admin: 11/20/17 08:22 Dose: 50 mcg Glucagon (Glucagon) 1 mg IM PRN PRN PRN Reason: Hypoglycemia Hydralazine HCl (Apresoline) 10 mg SLOW IVP Q4H PRN PRN Reason: SBP Greater Than 180 Piperacillin Sod/Tazobactam (Sod 3.375 gm/ Sodium Chloride) 100 mls @ 200 mls/ hr IVPB 0200,0800,1400,2000 [facility] Last Admin: 11/23/17 08:15 Dose: 100 mls Potassium Chloride 40 meq/ (Sodium Chloride) 270 mls @ 135 mls/hr IVPB ASDIR PRN PRN Reason: FOR SERUM K+ 2.5 - 3.5 Last Admin: 11/19/17 10:37 Dose: 270 mls Potassium Chloride 40 meq/ (Device) 100 mls @ 50 mls/hr IVPB ASDIR PRN PRN Reason: FOR SERUM K+ 2.5 - 3.5 Magnesium Sulfate 1 gm/ Sodium (Chloride) 102 mls @ 102 mls/hr IV PRN PRN PRN Reason: MAG LEVEL 1.4 - 2.0 Magnesium Sulfate 2 gm/ Device 100 mls @ 100 mls/hr IVPB ASDIR PRN PRN Reason: MAGNESIUM < 1.4 Last Admin: 11/16/17 22:56 Dose: 100 mls Potassium Phosphate 9 mmol/ (Sodium Chloride) 103 mls @ 25.75 mls/hr IVPB ASDIR PRN PRN Reason: Phosphate 1.0-1.8 Potassium Phosphate 12 mmol/ (Sodium Chloride) 254 mls @ 63.5 mls/hr IV ASDIR PRN PRN Reason: Serum phosphate 0.5-0.9 Potassium Phosphate 15 mmol/ (Sodium Chloride) 255 mls @ 63.75 mls/hr IV ASDIR PRN PRN Reason: Serum Phos < 0.5 Dextrose/Water (D5w) 1,000 mls @ 0 mls/hr IV .Q0M PRN; As Directed PRN Reason: Hypoglycemia Fentanyl Citrate (Fentanyl Bolus) 250 mls @ 0 mls/hr IVPB PRN PRN; As Directed PRN Reason: Breakthrough pain Stop: 12/20/17 07:17 Fentanyl Citrate 2,000 mcg/ (Sodium Chloride) 100 mls @ 0 mls/hr IV INF LESLI PRN Reason: As Directed Last Admin: 11/22/17 00:41 Dose: 100 mls Sodium Chloride (1/2 Normal Saline) 1,000 mls @ 75 mls/hr IV .[id number] [facility] Last Admin: 11/23/17 05:56 Dose: 1,000 mls Insulin Human Lispro (Humalog) 0 units SC .MILD SLIDING SCALE PRN PRN Reason: Mild Correctional Scale Last Admin: 11/23/17 08:56 Dose: 2 unit Lactulose (Lactulose) 20 gm PO DAILYPRN PRN PRN Reason: Constipation Lorazepam (Ativan) 2 mg SLOW IVP Q2H PRN PRN Reason: Anxiety to achieve Olsen 2-3 Stop: 12/20/17 07:17 Last Admin: 11/22/17 23:12 Dose: 2 mg Magnesium Oxide (Magnesium Oxide) 400 mg PO BIDPRN PRN PRN Reason: FOR SERUM MAG 1.4 - 2.0 Magnesium Oxide (Magnesium Oxide) 800 mg PO PRN PRN PRN Reason: FOR SERUM MAG < 1.4 Methylprednisolone Sodium Succinate (Solu-Medrol) 40 mg IVP Q6HR [facility] Last Admin: 11/23/17 05:56 Dose: 40 mg Metoclopramide HCl (Reglan) 10 mg IVP ACHS PRN PRN Reason: Constipation Mineral Oil/White Petrolatum (Lacri-Lube Ointment) 0 gm EA EYE PRN PRN PRN Reason: Dry Eyes Mineral Oil/White Petrolatum (Eucerin Cream) 0 gm TOP BIDPRN PRN PRN Reason: Dry Skin Miscellaneous Medication (Phos-Nak) 1 pkt PO TIDPRN PRN PRN Reason: FOR PHOS LEVEL 1.0 - 1.8 Miscellaneous Medication (Phos-Nak) 2 pkt PO TIDPRN PRN PRN Reason: FOR PHOS LEVEL 0.5 - 1.0 Miscellaneous Medication (Pharmacy To Dose) 0 each IVPB ASDIR PRN PRN Reason: Pharmacy to Dose [RENALLY ADJ Morphine Sulfate (Morphine) 2 mg SLOW IVP Q2H PRN PRN Reason: BREAKTHRU PAIN Ccu Electrolyte (Replacement Protocol) 0 each FS PRN PRN PRN Reason: FOR ELECTROLYTE REPLACEMENT Discontinue Previous Narcotic Pain Medications And Benzodiazepines 1 each FS .ONE LESLI Stop: 12/20/17 07:17 Ondansetron HCl (Zofran Odt) 4 mg PO Q6H PRN PRN Reason: Nausea/Vomiting Ondansetron HCl (Zofran) 4 mg IVP Q6H PRN PRN Reason: Nausea/Vomiting Potassium Chloride (K-Dur) 40 meq PO ASDIR PRN PRN Reason: FOR SERUM K+ 2.5 - 3.5 Potassium Chloride (Klor-Con) 40 meq PER TUBE ASDIR PRN PRN Reason: FOR SERUM K+ 2.5-3.5 Propofol (Diprivan) 1,000 mg IV INF PRN; Protocol PRN Reason: TO ACHIEVE OLSEN SCORE 2-3 Stop: 12/20/17 07:17 Last Admin: 11/23/17 06:33 Dose: 1,000 mg Sodium Chloride (Flush - Normal Saline) 10 ml IVF PRN PRN PRN Reason: Saline Flush Last Admin: 11/21/17 18:29 Dose: 10 ml
[2017-11-23] MEDS: Lorazepam 2 MG/ML VIAL SLOW IVP PRN ×2 (13:00→21:09)
[2017-11-23 15:02] VITALS: BP 122/79
[2017-11-23] MEDS: fentaNYL Citrate/PF 2,000 MCG in Sodium Chloride 0.9% 60 ML IV SCH (15:30)
--- NOTE | 2017-11-23 18:43 | PRG ---
DATE OF SERVICE: 11/23/2017 SUBJECTIVE: The patient was seen and examined in ICU, remains intubated. OBJECTIVE: GENERAL: This is a thin built female who was seen in the ICU, intubated. VITAL SIGNS: Temperature 98.6, pulse 120, respiratory rate 18, blood pressure 120/79. HEENT: Intubated. CARDIOVASCULAR: Tachycardic. RESPIRATORY: Clear. GASTROINTESTINAL: Abdomen is soft. MUSCULOSKELETAL: No edema. DERMATOLOGIC: No skin rash. NEUROLOGIC: Intubated and sedated. LABORATORY DATA: Potassium is 5.1, BUN is 56, creatinine is 1.1, bicarbonate is 20. PH is 7.40. ASSESSMENT AND PLAN: 1. Acute kidney injury. Renal function is stable. 2. Metabolic acidosis, stable. We will have 1 more amp of bicarbonate. PH remains stable. 3. Lupus nephritis. 4. Hyperchloremia. 5. Proteinuria. 6. Hypernatremia. 7. Overall, renal function is stable. We will follow. We will add 1 amp of bicarbonate for the hyp erkalemia.
[2017-11-23 22:11] VITALS: TEMP 99.4
[2017-11-25 16:11] LABS: Albumin-Ur 19.8 % (.); Alpha 1 - Ur 4.7 % (.); Alpha 2 - Ur 27.9 % (.); Beta-Ur 26.8 % (.); Gamma-Ur 20.8 % (.); M-Spike,% Not Observed % (Not Observed); Protein, Urine 129.4 mg/dL (Not Estab.)
== END 2017-11-23 21:40 | disposition short-term general hospital (02) | DRG 853 ==
LOC: ERS 08:31 → CCU 11:26 → ERS 11:49 → CCU 11-20 10:39
PROVIDERS: ADMIT Internal Medicine; ATTEND Internal Medicine
PROC: 0BH18EZ Insertion of Endotracheal Airway into Trachea, Via Natural or Artificial Opening Endoscopic (ICD-10-PCS; 2017-11-15)
PROC: 5A1955Z Respiratory Ventilation, Greater than 96 Consecutive Hours (ICD-10-PCS; 2017-11-15)
PROC: 30233N1 Transfusion of Nonautologous Red Blood Cells into Peripheral Vein, Percutaneous Approach (ICD-10-PCS; 2017-11-18)
PROC: 0B9D8ZX Drainage of Right Middle Lung Lobe, Via Natural or Artificial Opening Endoscopic, Diagnostic (ICD-10-PCS; principal; 2017-11-22)
DX: A41.9 Sepsis, unspecified organism (principal); J96.01 Acute respiratory failure with hypoxia; J18.9 Pneumonia, unspecified organism; N17.9 Acute kidney failure, unspecified; D61.818 Other pancytopenia; E87.2 Acidosis; D69.6 Thrombocytopenia, unspecified; E87.0 Hyperosmolality and hypernatremia; R04.89 Hemorrhage from other sites in respiratory passages; E87.1 Hypo-osmolality and hyponatremia; M62.82 Rhabdomyolysis; M32.14 Glomerular disease in systemic lupus erythematosus; E87.8 Other disorders of electrolyte and fluid balance, not elsewhere classified; E87.5 Hyperkalemia; E88.09 Other disorders of plasma-protein metabolism, not elsewhere classified; R65.20 Severe sepsis without septic shock; J06.9 Acute upper respiratory infection, unspecified; D72.819 Decreased white blood cell count, unspecified; D50.9 Iron deficiency anemia, unspecified; E86.9 Volume depletion, unspecified; R80.9 Proteinuria, unspecified; R94.5 Abnormal results of liver function studies; T78.3XXA Angioneurotic edema, initial encounter; Z79.52 Long term (current) use of systemic steroids
CPT/HCPCS: 36415; 36416; 36430; 70491; 71010; 74000; 76700; 80053; 81003; 82550; 82553; 82570; 82607; 82728; 82746; 82805; 83520; 83540; 83550; 83605; 83735; 84100; 84156; 84166; 84436; 84443; 84484; 84703; 85007; 85025; 85027; 85046; 85060; 85610; 85652; 85730; 86038; 86140; 86160; 86161; 86225; 86235; 86376; 86431; 86850; 86900; 86901; 87040; 87070; 87205; 87633; 87798; 88112; 88305; 88312; 88313; 93306; 93970; 94002; 94003; 94640; 94660; 94760; 96361; 96365; 96375; A4218; G8978-GP-CN; G8979-GP-CJ; G8996-GN-CM; G8997-GN-CI; J0131; J0171; J1100; J1200; J1720; J1940; J2001; J2060; J2250; J2270; J2543; J2704; J2765; J2920; J2930; J3010; J3475; J3480; J3490; J7042; J7050; J7620; J9070; P9016; S0028

== ENCOUNTER 2017-12-22 04:35 | Emergency (ER) | payer OTHER, SELFPAY ==
[2017-12-22 05:02] LABS: Bilirubin Small (Negative); Blood, Urine Large (Negative); Clarity CLOUDY (Clear); Glucose, Urine (Dipstick) Negative (Negative); Leukocyte Small (Negative); Nitrite Positive (Negative); Pregnancy Test - Urine (BHCG) Negative (Negative); Pregu Control Background? CLEAR/WHITE (CLR/WHITE); Pregu Control Bar Appear? YES (CONTROL BAR); Protein, Urine (Dipstick) > or equal to 300 mg/dL (Neg-Trace); Specific Gravity 1.026 (1.002-1.036); Specific Gravity, Urine 1.026 (1.002-1.036); pH, Urine 6.5 (5.0-9.0)
[2017-12-22 05:04] LABS: Bacteria/HPF None Seen HPF (None Seen); Hyaline Casts/LPF 7-10 HYALINE CAST LPF (0-3 Hyaline); Pathc Cast-AUWi Flag 2.43 (0-2.49); RBC/HPF GREATER THAN 50-TNTC HPF (0-3); Squamous Epithelial 0-3 HPF (0-3)
[2017-12-22] MEDS ORDERED: traMADol HCl 50 MG TAB ONE (05:54)
[2017-12-22 06:41] LABS: Anion Gap 15 mmol/L (10-20); BUN (Urea Nitrogen) 40 mg/dL (7.0-18.7); Calc. Creatinine Clearance 0 mL/min (70-130); Calcium 9.2 mg/dL (7.8-10.44); Carbon Dioxide 20 mmol/L (22-29); Chloride 111 mmol/L (98-107); Estimated GFR-MDRD 60; Glucose 75 mg/dL (70-105); Potassium 3.8 mmol/L (3.5-5.1); Sodium 142 mmol/L (136-145)
[2017-12-22 06:42] LABS: #Eosinphils 0.2 thou/uL (0.0-0.7); #Lymphocytes 2.3 thou/uL (1.20-3.40); #Monocytes 0.5 thou/uL (0.11-0.59); #Neutrophils 7.2 thou/uL (1.40-6.50); %Basophils 0.1 % (0.0-1.0); %Eosinophils 2.4 % (0.0-10.0); %Lymphocytes 22.5 % (21.0-51.0); %Monocytes 5.2 % (0.0-10.0); %Neutrophils 69.8 % (42.0-75.0); Hemoglobin 9.4 g/dL (12.0-16.0); Mean Corpuscular HGB CONC 32.8 g/dL (32.0-36.0); Mean Corpuscular Hemoglobin 30.3 pg (27.0-31.0); Mean Corpuscular Volume 92.2 fl (81.0-99.0); Mean Platelet Volume 7.2 fL (7.4-10.4); Platelet Count 298 thou/uL (130-400); RBC Distribution Width 14.8 % (11.5-14.5); Red Blood Cell (RBC) Count 3.11 mill/uL (4.20-5.40); White Blood Cell (WBC) Count 10.3 thou/uL (4.8-10.8)
[2017-12-22] MEDS ORDERED: HYDROcodone/Acetaminophen 5/325 mg Tablet ONE (07:53)
--- NOTE | 2017-12-22 08:01 | CT ---
CT OF THE ABDOMEN AND PELVIS WITHOUT CONTRAST: Date: 12/22/17 COMPARISON: None. HISTORY: Dysuria and urgency. Bilateral flank pain. TECHNIQUE: Multiple contiguous axial images were obtained in a CT of the abdomen and pelvis without contrast. Co bryant reformats were performed. FINDINGS: There is mild bilateral hydronephrosis and hydroureter. No calcifications are seen in either kidney a long the course of the ureters. Stranding changes are seen surrounding the urinary bladder, which is partially decompressed. The liver, gallbladder, adrenal glands, spleen, and pancreas are unremarkable. No free air or free fl uid are seen in the abdomen or pelvis. The large and small bowel are unremarkable. No abdominal or pelvic lymphadenopathy are seen. The repr oductive organs are unremarkable. The osseous structures, visualized inferior thorax, and abdominal wall soft tissues are unremarkable. IMPRESSION: 1. Stranding changes surrounding the urinary bladder likely secondary to cystitis. 2. There is mild bilateral hydronephrosis which could be secondary to reflux. POS: ADRIANA
== END 2017-12-22 09:35 | disposition home or self-care (01) ==
LOC: ERS 04:35
DX: N39.0 Urinary tract infection, site not specified (principal); N13.30 Unspecified hydronephrosis; F41.9 Anxiety disorder, unspecified; Z79.52 Long term (current) use of systemic steroids; Z79.899 Other long term (current) drug therapy
CPT/HCPCS: 74176; 80048; 81003; 81015; 81025; 85025; 87086

== ENCOUNTER 2018-01-05 12:13 | Emergency (ER) | payer SELFPAY ==
[2018-01-05 12:57] LABS: #Lymphocytes 1.1 thou/uL (1.20-3.40); #Monocytes 0.1 thou/uL (0.11-0.59); %Basophils 0.1 % (0.0-1.0); %Eosinophils 0.2 % (0.0-10.0); %Lymphocytes 11.8 % (21.0-51.0); %Monocytes 1.5 % (0.0-10.0); %Neutrophils 86.4 % (42.0-75.0); Hemoglobin 8.7 g/dL (12.0-16.0); Mean Corpuscular HGB CONC 33.1 g/dL (32.0-36.0); Mean Corpuscular Hemoglobin 30.5 pg (27.0-31.0); Mean Corpuscular Volume 92.1 fl (81.0-99.0); Mean Platelet Volume 7.4 fL (7.4-10.4); Platelet Count 298 thou/uL (130-400); Red Blood Cell (RBC) Count 2.86 mill/uL (4.20-5.40); White Blood Cell (WBC) Count 9.2 thou/uL (4.8-10.8)
[2018-01-05 13:17] LABS: ALT (SGPT) 16 U/L (8-55); AST (SGOT) 17 U/L (5-34); Albumin 3.9 g/dL (3.5-5.0); Alkaline Phosphatase 57 U/L (40-150); Anion Gap 16 mmol/L (10-20); BUN (Urea Nitrogen) 32 mg/dL (7.0-18.7); Bilirubin, Total 0.4 mg/dL (0.2-1.2); Calc. Creatinine Clearance 0 mL/min (70-130); Calcium 9.3 mg/dL (7.8-10.44); Carbon Dioxide 20 mmol/L (22-29); Chloride 107 mmol/L (98-107); Estimated GFR-MDRD 67; Globulin 4.3 g/dL (2.4-3.5); Glucose 132 mg/dL (70-105); Potassium 3.6 mmol/L (3.5-5.1); Protein, Total 8.2 g/dL (6.0-8.3); Sodium 139 mmol/L (136-145)
== END 2018-01-05 13:55 | disposition home or self-care (01) ==
LOC: ERS 12:13
DX: D50.0 Iron deficiency anemia secondary to blood loss (chronic) (principal); M32.9 Systemic lupus erythematosus, unspecified; F41.9 Anxiety disorder, unspecified; Z79.891 Long term (current) use of opiate analgesic; Z79.899 Other long term (current) drug therapy
CPT/HCPCS: 80053; 85025; 86850; 86900; 86901; 99284

== ENCOUNTER 2018-09-18 11:32 | Day surgery (SDC) | payer OTHER ==
[2018-09-18] MEDS ORDERED: diphenhydrAMINE 50 MG/ML VIAL IVP PRN (11:48)
[2018-09-18] MEDS ORDERED: diphenhydrAMINE 25 MG CAP PO PRN (11:48)
[2018-09-18] MEDS ORDERED: Cyclophosphamide 500 MG in Sodium Chloride 0.9% 250 ML 250 ML IVPB SCH (12:30)
[2018-09-18 12:46] VITALS: BP 162/99; TEMP 98
== END 2018-09-18 14:44 | disposition home or self-care (01) ==
LOC: ONC/OP 11:32
PROVIDERS: ATTEND Internal Medicine Rheumatology
DX: L93.0 Discoid lupus erythematosus (principal)
CPT/HCPCS: 96413; J7050; J9070

== ENCOUNTER 2018-12-15 09:57 | Day surgery (SDC) | payer OTHER ==
[2018-12-15] MEDS ORDERED: diphenhydrAMINE 50 MG/ML VIAL IVP PRN (10:27)
[2018-12-15] MEDS ORDERED: Sodium Chloride 0.9% 500 ML IVPB SCH (10:30)
[2018-12-15] MEDS ORDERED: MESNA IVPB SCH (10:30)
[2018-12-15] MEDS ORDERED: SODIUM CHLORIDE 0.9% IVPB SCH (10:30)
[2018-12-15] MEDS ORDERED: CYCLOPHOSPHAMIDE IVPB SCH (10:30)
[2018-12-15] MEDS ORDERED: Sodium Chloride 0.9% 20 ML ONE (10:33)
== END 2018-12-15 14:10 | disposition home or self-care (01) ==
LOC: ONC/OP 09:57
PROVIDERS: ATTEND Internal Medicine Rheumatology
DX: M32.13 Lung involvement in systemic lupus erythematosus (principal)
CPT/HCPCS: 96413; J1200; J7050; J9070; J9209

== ENCOUNTER 2018-12-29 08:26 | Day surgery (SDC) | payer OTHER ==
[~2018-12-29 08:26] MED LIST: CYCLOPHOSPHAMIDE IVPB SCH; MESNA IVPB SCH; SODIUM CHLORIDE 0.9% IVPB SCH; Sodium Chloride 0.9% 1,000 ML IV SCH; Sodium Chloride 0.9% 500 ML IVPB SCH; diphenhydrAMINE 50 MG/ML VIAL IVP PRN
[2018-12-29] MEDS ORDERED: Sodium Chloride 0.9% 20 ML ONE (08:52)
[2018-12-29 09:16] VITALS: BP 117/76; TEMP 97.6
== END 2018-12-29 10:44 | disposition home or self-care (01) ==
LOC: ONC/OP 08:26
PROVIDERS: ATTEND Internal Medicine Rheumatology
DX: M32.13 Lung involvement in systemic lupus erythematosus (principal)
CPT/HCPCS: 96361; 96413; J7050; J9070; J9209

== ENCOUNTER 2019-01-12 00:10 | Day surgery (SDC) | payer OTHER ==
[2019-01-12] MEDS ORDERED: diphenhydrAMINE 50 MG/ML VIAL IVP PRN (02:12)
[2019-01-12] MEDS ORDERED: MESNA IVPB SCH (02:15)
[2019-01-12] MEDS ORDERED: SODIUM CHLORIDE 0.9% IVPB SCH (02:15)
[2019-01-12] MEDS ORDERED: Sodium Chloride 0.9% 1,000 ML IV SCH (02:15)
[2019-01-12] MEDS ORDERED: CYCLOPHOSPHAMIDE IVPB SCH (02:15)
[2019-01-12] MEDS ORDERED: Sodium Chloride 0.9% 20 ML ONE (09:01)
[2019-01-12 09:24] VITALS: BP 113/70; TEMP 98.9
== END 2019-01-12 11:19 | disposition home or self-care (01) ==
LOC: ONC/OP 00:10
PROVIDERS: ATTEND Internal Medicine Rheumatology
DX: Z51.11 Encounter for antineoplastic chemotherapy (principal); M32.13 Lung involvement in systemic lupus erythematosus; Z79.2 Long term (current) use of antibiotics
CPT/HCPCS: 96361; 96413; J7050; J9070; J9209

== ENCOUNTER 2019-01-26 08:37 | Day surgery (SDC) | payer OTHER ==
[~2019-01-26 08:37] MED LIST changes: -Sodium Chloride 0.9% 500 ML IVPB SCH
== END 2019-01-26 11:17 | disposition home or self-care (01) ==
LOC: ONC/OP 08:37
PROVIDERS: ATTEND Internal Medicine Rheumatology
DX: M32.13 Lung involvement in systemic lupus erythematosus (principal)
CPT/HCPCS: 96361; 96375; 96413; J1200; J7050; J9070; J9209

== ENCOUNTER 2019-02-09 08:14 | Day surgery (SDC) | payer OTHER ==
[2019-02-09] MEDS ORDERED: Sodium Chloride 0.9% 10 ML ONE (09:12)
[2019-02-09 10:52] VITALS: BP 107/67; TEMP 98.1
== END 2019-02-09 11:41 | disposition home or self-care (01) ==
LOC: ONC/OP 08:14
PROVIDERS: ATTEND Internal Medicine Rheumatology
DX: M32.13 Lung involvement in systemic lupus erythematosus (principal); Z79.52 Long term (current) use of systemic steroids; Z79.2 Long term (current) use of antibiotics
CPT/HCPCS: 96361; 96375; 96413; J1200; J7050; J9070; J9209

== ENCOUNTER 2019-02-23 08:37 | Day surgery (SDC) | payer OTHER ==
[2019-02-23] MEDS ORDERED: Sodium Chloride 0.9% 20 ML ONE (08:56)
[2019-02-23 09:15] VITALS: BP 135/98; TEMP 98.3
== END 2019-02-23 13:53 | disposition home or self-care (01) ==
LOC: ONC/OP 08:37
PROVIDERS: ATTEND Internal Medicine Rheumatology
DX: M32.13 Lung involvement in systemic lupus erythematosus (principal)
CPT/HCPCS: 96361; 96367; 96375; 96413; J1200; J7050; J9070; J9209

== ENCOUNTER → 2019-03-22 | Day surgery (SDC) | payer OTHER ==
[~2019-03-22] MED LIST changes: +Acetaminophen/Codeine 30-300mg Tablet PO PRN; -CYCLOPHOSPHAMIDE IVPB SCH; -MESNA IVPB SCH; +Potassium Chloride 20 MEQ TAB PO SCH; -SODIUM CHLORIDE 0.9% IVPB SCH; -Sodium Chloride 0.9% 1,000 ML IV SCH; +Sodium Chloride 0.9% 20 ML ONE; -diphenhydrAMINE 50 MG/ML VIAL IVP PRN; +methylPREDNISolone Sod Succ 1 GM in Sodium Chloride 0.9% 250 ML 250 ML IVPB SCH
[2019-03-22 13:35] LABS: Bilirubin Negative (Negative); Blood, Urine Moderate (Negative); Clarity CLOUDY (Clear); Glucose, Urine (Dipstick) Negative (Negative); Leukocyte Trace (Negative); Nitrite Negative (Negative); Protein, Urine (Dipstick) > or equal to 300 mg/dL (Neg-Trace); Specific Gravity, Urine 1.022 (1.002-1.036); Urobilinogen 0.2 mg/dL (0.2-1.0); pH, Urine 6.5 (5.0-9.0)
[2019-03-22 13:36] LABS: Squamous Epithelial 0-3 HPF (0-3); WBC/HPF 21-50 HPF (0-3)
[2019-03-22 13:38] LABS: Pathc Cast-AUWi Flag 3.67 (0-2.49)
[2019-03-22 13:44] LABS: Anion Gap 7 mmol/L (10-20); BUN (Urea Nitrogen) 21 mg/dL (7.0-18.7); Calc. Creatinine Clearance 0 mL/min (70-130); Calcium 6.4 mg/dL (7.8-10.44); Carbon Dioxide 19 mmol/L (22-29); Chloride 119 mmol/L (98-107); Estimated GFR-MDRD 77; Glucose 86 mg/dL (70-105); Sodium 143 mmol/L (136-145)
[2019-03-22 13:46] LABS: Bacteria/HPF 2+ HPF (None Seen)
[2019-03-22 13:47] LABS: Hyaline Casts/LPF 7-10 HYALINE CAST LPF (0-3 Hyaline); Manual Microscopic Reviewed? No Path Casts Seen; Other Casts/LPF 4-6 MIXED CASTS LPF (0-3 Hyaline)
[2019-03-22 13:48] LABS: Potassium 2.4 mmol/L (3.5-5.1)
[2019-03-22 13:57] LABS: Creatinine, Urine 155.73 mg/dL (47-110)
[2019-03-22 14:49] VITALS: BP 130/87; TEMP 97.7
== END ==
LOC: ERS 12:22 → ONC/OP 12:22 → EDSTATUS 12:33 → ONC/OP 12:36 → EDSTATUS 12:37
PROVIDERS: ATTEND Internal Medicine Rheumatology
DX: M32.19 Other organ or system involvement in systemic lupus erythematosus (principal)
CPT/HCPCS: 80048; 81003; 81015; 82570; 84156; 96365; 99211; G0463; J2930; J7050

== ENCOUNTER 2019-03-23 13:32 | Day surgery (SDC) | payer OTHER ==
[2019-03-23] MEDS ORDERED: methylPREDNISolone Sod Succ 1 GM in Sodium Chloride 0.9% 250 ML 250 ML IVPB SCH (14:00)
[2019-03-23 14:01] VITALS: BP 177/81; TEMP 97.8
== END 2019-03-23 16:13 | disposition home or self-care (01) ==
LOC: ONC/OP 13:32
PROVIDERS: ATTEND Internal Medicine Rheumatology
DX: M32.19 Other organ or system involvement in systemic lupus erythematosus (principal)
CPT/HCPCS: 96365; J2930; J7050

== ENCOUNTER 2019-04-14 17:17 | Observation (INO) | payer BC, OTHER, SELFPAY ==
[2019-04-14] MEDS ORDERED: Fentanyl 100 MCG/2 ML VIAL ONE ×2 (17:46→20:07)
[2019-04-14 17:55] LABS: #Eosinphils 0.1 thou/uL (0.0-0.7); #Lymphocytes 0.8 thou/uL (1.20-3.40); #Monocytes 0.4 thou/uL (0.11-0.59); #Neutrophils 7.1 thou/uL (1.40-6.50); %Basophils 0.1 % (0.0-1.0); %Eosinophils 0.7 % (0.0-10.0); %Lymphocytes 9.9 % (21.0-51.0); %Neutrophils 84.3 % (42.0-75.0); Hemoglobin 9.4 g/dL (12.0-16.0); Mean Corpuscular HGB CONC 33.8 g/dL (32.0-36.0); Mean Platelet Volume 9.8 fL (7.4-10.4); Platelet Count 187 thou/uL (130-400); RBC Distribution Width 13.6 % (11.5-14.5); Red Blood Cell (RBC) Count 3.24 mill/uL (4.20-5.40); White Blood Cell (WBC) Count 8.4 thou/uL (4.8-10.8)
--- NOTE | 2019-04-14 17:55 | RAD ---
AP view chest. HISTORY: Severe chest pain AP view chest obtained on 04/14/2019. The lungs are well aerated. No evidence of active intrathoracic disease seen. No evidence of effusion s, pneumonia or pneumothorax seen. IMPRESSION: Unremarkable AP view chest.
[2019-04-14 18:14] LABS: ALT (SGPT) 8 U/L (8-55); AST (SGOT) 13 U/L (5-34); Albumin 3.3 g/dL (3.5-5.0); Alkaline Phosphatase 49 U/L (40-150); Anion Gap 15 mmol/L (10-20); BHCG - Serum Negative (NEGATIVE); BUN (Urea Nitrogen) 30 mg/dL (7.0-18.7); Bilirubin, Total 0.2 mg/dL (0.2-1.2); Calc. Creatinine Clearance 0 mL/min (70-130); Calcium 8.6 mg/dL (7.8-10.44); Carbon Dioxide 20 mmol/L (22-29); Chloride 112 mmol/L (98-107); Estimated GFR-MDRD 51; Globulin 2.4 g/dL (2.4-3.5); Glucose 99 mg/dL (70-105); Potassium 4.8 mmol/L (3.5-5.1); Pregs Control Background? CLEAR/WHITE (CLR/WHITE); Pregs Control Bar Appear? YES (CONTROL BAR); Protein, Total 5.7 g/dL (6.0-8.3); Sodium 142 mmol/L (136-145)
[2019-04-14 18:29] LABS: CKMB 1.1 ng/mL (0-6.6)
[2019-04-14 20:33] LABS: Bilirubin Negative (Negative); Blood, Urine Moderate (Negative); Clarity Cloudy (Clear); Glucose, Urine (Dipstick) Negative (Negative); Leukocyte Trace (Negative); Nitrite Negative (Negative); Protein, Urine (Dipstick) > or equal to 300 mg/dL (Neg-Trace); Specific Gravity, Urine 1.025 (1.005-1.030); Urobilinogen 0.2 mg/dL (0.2-1.0)
[2019-04-14 20:41] LABS: Bacteria/HPF Rare-Few HPF (None Seen); Hyaline Casts/LPF NONE SEEN LPF (0-3 Hyaline); Other Casts/LPF None Seen LPF (0-3 Hyaline)
[2019-04-14 21:51] LABS: Troponin I 0.107 ng/mL (< 0.028)
[2019-04-14 23:35] VITALS: BMI 23.3
[2019-04-14] MEDS ORDERED: Morphine 4 MG/ML VIAL SLOW IVP PRN (23:39)
[2019-04-14] MEDS ORDERED: Ondansetron PF 4 MG/2 ML Vial IVP PRN (23:40)
[2019-04-15] MEDS: Morphine 4 MG/ML VIAL SLOW IVP PRN ×4 (00:44→23:29)
[2019-04-15 01:06] LABS: Troponin I 0.148 ng/mL (< 0.028)
[2019-04-15] MEDS ORDERED: Ondansetron ODT 8 MG TAB PO PRN (07:37)
[2019-04-15] MEDS ORDERED: HYDROcodone/Acetaminophen 5/325 mg Tablet PO PRN ×2 (07:37→08:02)
--- NOTE | 2019-04-15 07:39 | CT ---
NONCONTRAST ABDOMEN AND PELVIS CT: COMPARISON: 12/22/2017. INDICATION: Left flank pain. FINDINGS: No urolithiasis. Degree of slight dilatation of the bilateral collecting systems is present, althoug h decreased from prior exam. Urinary bladder is decompressed and unopacified, although grossly unrem arkable. There is a large cyst of the right adnexa, 5.3 cm in diameter, incompletely evaluated and n ew from prior exam. There is soft tissue density along the medial aspect of this cystic lesion, whic h is inseparable from the adjacent uterus. There is prominence at the lower uterine segment/cervix. The evaluation of the lungs is limited on the basis of noncontrast technique. IMPRESSION: 1. Large right adnexal cystic lesion with medially located soft tissue density and, therefore, the p ossibility of a complex mass should be further interrogated with pelvic ultrasound. There is also pr ominence of the lower uterine segment/cervix. 2. No urolithiasis. Slight prominence of each renal collecting system has improved from prior exam. 3. Evaluation otherwise limited on the basis of noncontrast technique. POS: LESLIE
[2019-04-15] MEDS ORDERED: Non-Formulary Item 1 EACH (Prednisone [Prednisone] 10 MG) PO SCH (08:00)
[2019-04-15] MEDS ORDERED: Cetirizine HCl 10 MG TAB PO SCH (08:00)
[2019-04-15] MEDS ORDERED: Non-Formulary Item 1 EACH (Potassium Chloride [Potassium Chloride] 20 MEQ) PO SCH (08:00)
[2019-04-15] MEDS ORDERED: Furosemide 40 MG TAB PO SCH (08:00)
[2019-04-15] MEDS ORDERED: MYCOPHENOLATE MOFETIL 1500 MG PO SCH (08:00)
[2019-04-15] MEDS ORDERED: Potassium Chloride 20 MEQ TAB PO SCH (08:15)
[2019-04-15] MEDS: Amlodipine 10 MG TAB PO SCH (08:22)
[2019-04-15] MEDS: Loratadine 10 MG TAB PO SCH (08:23)
[2019-04-15] MEDS: Mycophenolate 250 MG CAP PO SCH ×2 (08:23→20:15)
[2019-04-15] MEDS: Carvedilol 3.125 MG TAB PO SCH ×2 (08:23→20:15)
[2019-04-15] MEDS: Hydroxychloroquine Sulfate 200 MG TAB PO SCH ×2 (08:23→20:15)
[2019-04-15] MEDS: Tacrolimus 1 MG CAP PO SCH ×2 (08:24→20:15)
[2019-04-15] MEDS: predniSONE 5 MG TAB PO SCH (08:24)
[2019-04-15] MEDS ORDERED: Prevnar 13-Val Conj/PF 0.5 ML SYRINGE IM ONE (09:00)
[2019-04-15] MEDS ORDERED: Regadenoson 0.4 MG/5 ML SYRINGE ONE (11:54)
--- NOTE | 2019-04-15 14:24 | CON ---
DATE OF CONSULTATION: REASON FOR CONSULTATION: Chest pain. HISTORY OF PRESENT ILLNESS: Ms. Otto is a very pleasant 33-year-old woman with a history of lupus. She re-presented with chest pain. She describes the pain as sharp, worse with deep breath. It is not associated with movement, lying down or sitting up. It is felt to be fairly constant, but improving. No other ameliorating, exacerbating, or precipitating factors present. She states in November of 2017, she had a full cardiac workup. She states she had shortness of breath and required intubation for several days. She also had "blood in her lungs." She also developed kidney failure, which has improved. Her pain started yesterday at 5:00 p.m. She has been diagnosed with pleurisy in the past. PAST MEDICAL HISTORY: Advanced lupus, previous pericarditis. SOCIAL HISTORY: No current tobacco or alcohol use. HOME MEDICATIONS: Include Lasix, potassium, prednisone, Linch, carvedilol, Prograf, Zofran, amlodipine, cetirizine, famotidine, Plaquenil, losartan, and melatonin. REVIEW OF SYSTEMS: A 10-point review of systems is reviewed as above, otherwise negative. PHYSICAL EXAMINATION: GENERAL: Patient is a pleasant female, who is in no acute distress. The patient appears their stated age. VITAL SIGNS: Blood pressure 120/75, pulse 95, temperature 98. NEUROLOGIC: The patient is alert and oriented x3 with no focal neurologic deficits. HEENT: Sclerae without icterus. Mouth has moist mucous membranes with normal pallor. NECK: No JVD. Carotid upstroke brisk. No bruits bilaterally. LUNGS: Clear to auscultation with unlabored respirations. BACK: No scoliosis or kyphosis. CARDIAC: Regular rate and rhythm with normal S1 and S2. No S3 or S4 noted. No significant rubs, murmurs, thrills, or gallops noted throughout the precordium. PMI is not displaced. There is no parasternal heave. ABDOMEN: Soft, nontender, nondistended. No peritoneal signs present. No hepatosplenomegaly. No abnormal striae. EXTREMITIES: 2+ femoral and 2+ dorsalis pedis pulses. No cyanosis, clubbing, or edema. SKIN: No gross abnormalities. DIAGNOSTIC STUDIES: EKG shows normal sinus rhythm with no ST wave changes suggesting ischemia. PERTINENT LABORATORY DATA: Hemoglobin 9.4. Peak troponin 0.148. IMPRESSION: 1. Pleurisy versus pericarditis. 2. Elevated troponin. 3. Systemic lupus erythematosus, advanced. RECOMMENDATIONS: Ms. Otto does have increased risk of developing underlying coronary artery disease, although felt to be relatively young. She does though states she has a fairly advanced disease process. I would therefore recommend a noninvasive stress study to assess for any areas of ischemia. Her elevated troponin is likely due to type 2 VT. I will continue with prednisone. Otherwise, I have no further recommendations. Job ID: [id number]
[2019-04-15] MEDS ORDERED: Ondansetron ODT 4 MG TAB PO PRN (16:04)
[2019-04-15] MEDS ORDERED: Senokot S 8.6-50 MG TAB PO PRN (16:04)
[2019-04-15] MEDS ORDERED: Acetaminophen 650 MG Suppository PR PRN (16:04)
[2019-04-15] MEDS ORDERED: Guaifenesin DM 100-10/5 ML UDCUP PO PRN (16:04)
[2019-04-15] MEDS ORDERED: Acetaminophen 325 MG TAB PO PRN (16:04)
[2019-04-15] MEDS ORDERED: Furosemide 40 MG/4 ML VIAL SLOW IVP SCH (16:15)
--- NOTE | 2019-04-15 18:05 | NM ---
Chest pain Exam is a myocardial perfusion and quantitative gated SPECT study. Dose is 31.7 mCi of technetium 99 M Cardiolite for the stress portion of the exam and 10 mCi for the resting portion of the exam. The patient was stressed using 0.4 mg of Lexiscan given IV. Images demonstrate no evidence of areas of myocardial perfusion abnormalities on stress images. No ev idence of reversible defects seen. Ejection fraction measures 66%. IMPRESSION: Normal myocardial perfusion and quantitative gated SPECT study.
[2019-04-15] MEDS ORDERED: Famotidine 20 MG TAB PO SCH (20:00)
--- NOTE | 2019-04-15 22:26 | HP ---
PRIMARY CARE PHYSICIAN: Manoj Chacon DO Primary sales promotion director and leather tooler are at [facility] in [place]. CHIEF COMPLAINT: Chest pain. HISTORY OF PRESENT ILLNESS: This is a 33-year-old white female with a known history of severe lupus, who had a recent history of a myocardial infarction about a month ago, was seen at [facility], and transferred to [facility] in [place], had established with a new sales promotion director and leather tooler there. Had her kidney biopsy done which showed a stage 4 to 5 nephrotic kidney failure, though her creatinine has not been too bad. She had her medication regimen changed there and was actually feeling pretty good for the last 2 weeks, which is unusual for her, but then had sudden onset of severe chest pain yesterday. Chest pain was sharp in nature, worse with deep breathing, centered over the left chest associated with shortness of breath and some nausea. She also noticed some whole-body swelling, has retained about 10 pounds over the last couple of days. She states she had about 20 pounds extra on last time she was in the hospital, but they diuresed it off with Lasix, and she was doing well until the last couple of days. The patient was seen in the emergency room. She had an EKG which showed sinus tachycardia, was given fentanyl and then admitted to the hospital in the observation unit. While in the ER she did have a bedside ultrasound that showed no significant pericardial effusion. She did have an indeterminate troponin at 0.08. Dr. Freedman has been consulted and has seen the patient. He diagnosed her with pleurisy versus pericarditis along with likely type 2 myocardial infarction and has recommended a stress test to make sure she does not have coronary artery disease contributing to this. She has just finished the stress part of the test, and I interviewed her down in the nuclear medicine lab. PAST MEDICAL HISTORY: 1. Systemic lupus erythematosus diagnosed in the end of 2017 with a fairly progressive course complicated. 2. 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 3. History of pericarditis. 4. History of myocardial infarction. PAST SURGICAL HISTORY: None. PAST PSYCHIATRIC HISTORY: Anxiety. SOCIAL HISTORY: No tobacco, alcohol, or illicit drug use. She is , lives with her and her children. FAMILY HISTORY: Negative for heart disease or malignancies. ALLERGIES: NO KNOWN DRUG ALLERGIES. CURRENT MEDICATIONS: 1. Amlodipine 10 mg daily. 2. Carvedilol 3.125 mg twice a day. 3. Cetirizine 10 mg daily. 4. Cymbalta 20 mg daily. 5. Pepcid 20 mg daily. 6. Furosemide 40 mg daily. 7. Circle 5/325 mg one tablet every 6 hours as needed for pain. 8. Plaquenil 200 mg twice a day. 9. CellCept 1500 mg twice a day. 10. Zofran as needed. 11. Potassium chloride 20 mEq daily. 12. Prednisone 10 mg daily. 13. Tacrolimus 1 mg twice a day. REVIEW OF SYSTEMS: CONSTITUTIONAL: She has intermittent chills. No fevers. EYES: She does have intermittent blurry visions spells, none currently. ENT: No congestion or drainage. She did have a little sore throat this morning. CARDIOVASCULAR: See HPI. PULMONARY: She has no significant shortness of breath or coughing currently. GASTROINTESTINAL: No abdominal pain. She does have intermittent episodes of dizziness, nausea, and vomiting. Had an episode of dizziness and nausea earlier just prior to stress test that has now improved. No diarrhea or constipation. GENITOURINARY: No dysuria or hematuria. She does have foamy urine, which is typical for her. MUSCULOSKELETAL: She has chronic arthralgias in her ankles and her knees and her left shoulder. SKIN: No active skin lesions or rashes currently. NEUROLOGIC: No numbness, tingling, or focal weakness. PHYSICAL EXAMINATION: VITAL SIGNS: Blood pressure 120/75, pulse 95, respirations 16, O2 saturation 97% on room air, and temperature 98.0. GENERAL: This is a well-developed, well-nourished white female, in no acute distress. HEENT: Pupils are equal, round, and reactive to light. Oropharynx clear without lesions, erythema, or exudate. NECK: Supple. No lymphadenopathy. No thyroid nodules or enlargement. HEART: Regular rate and rhythm. No murmurs, rubs, or gallops. LUNGS: Clear to auscultation bilaterally. No wheezes, crackles, or rhonchi. ABDOMEN: Soft, nontender to palpation. Normoactive bowel sounds. No hepatosplenomegaly or other masses. EXTREMITIES: No clubbing or cyanosis. No pitting edema. SKIN: The patient has some freckling in the malar distribution, otherwise no rashes noted. NEUROLOGIC: Intact strength and sensation in all extremities. No facial droop. LABORATORY DATA: CBC with hemoglobin of 9.4 and hematocrit 27.8. The rest was normal. Coagulation profile with a normal PTT. Complete metabolic panel is notable for chloride of 122, carbon dioxide of 20, BUN of 30, creatinine of 1.2, and an albumin of 3.3. Troponins are indeterminate at 0.081, 0.107, and 0.148. CK-MB was normal. Urinalysis did have greater than 300 protein, moderate blood, trace leukocyte esterase greater than 50, too numerous to count white blood cells, but rare to few bacteria. IMAGING STUDIES: Chest x-ray, I did review the chest x-ray done in the emergency room along with the radiologist's report. Does show a normal cardiac silhouette, no infiltrates, no congestive changes, or other abnormalities. There was a CT of the abdomen and pelvis without contrast done in the emergency room as well, showing a large right adnexal cystic lesion with medial located soft tissue density, possibly a complex mass should be further interrogated with pelvic ultrasound. Prominence of the lower uterine segment, cervix. No urolithiasis. Slight prominence of each area of collecting system has improved from previous exam. A serum test was negative. ASSESSMENT: 1. Chest pain, likely recurrent pericarditis versus pleurisy. The patient is not able to take NSAIDs due to her renal disease. We will continue hydrocodone and morphine as needed. We will await results of stress testing to see if the patient has any evidence of coronary artery disease contributing to this. Appreciate Dr. Freedman's assistance in this case. 2. Lupus, kidney disease with proteinuria. The patient's creatinine is not too bad right now, but apparently it is not usually elevated. Her albumin is a little low from her proteinuria, but not terribly either I will go ahead due to the patient feeling like she has had some fluid retention. We will try a dose of IV Lasix to see if this improves her volume status and then reassess her creatinine in the morning. 3. Chronic arthralgias. We will continue the patient's pain medications. 4. Gastrointestinal prophylaxis, put the patient on Pepcid. 5. Systemic lupus erythematosus. We will resume the patient's home medications. 6. Deep vein thrombosis prophylaxis, put the patient on SCDs while in bed. CODE STATUS: The patient is a full code. Should she be incapacitated, her would be her medical decision maker, his name is Miki Otto. Job ID: [id number]
[2019-04-16 05:20] LABS: #Eosinphils 0.1 thou/uL (0.0-0.7); #Lymphocytes 0.6 thou/uL (1.20-3.40); #Monocytes 0.6 thou/uL (0.11-0.59); #Neutrophils 4.8 thou/uL (1.40-6.50); %Lymphocytes 10.3 % (21.0-51.0); %Monocytes 9.6 % (0.0-10.0); %Neutrophils 79.1 % (42.0-75.0); Hemoglobin 9.5 g/dL (12.0-16.0); Mean Corpuscular HGB CONC 33.6 g/dL (32.0-36.0); Mean Corpuscular Hemoglobin 29.3 pg (27.0-31.0); Mean Corpuscular Volume 87.4 fL (78.0-98.0); Mean Platelet Volume 9.7 fL (7.4-10.4); Platelet Count 171 thou/uL (130-400); RBC Distribution Width 13.6 % (11.5-14.5); Red Blood Cell (RBC) Count 3.22 mill/uL (4.20-5.40); White Blood Cell (WBC) Count 6.1 thou/uL (4.8-10.8)
[2019-04-16 05:56] LABS: Anion Gap 13 mmol/L (10-20); BUN (Urea Nitrogen) 17 mg/dL (7.0-18.7); Calc. Creatinine Clearance 72 mL/min (70-130); Calcium 8.6 mg/dL (7.8-10.44); Carbon Dioxide 22 mmol/L (22-29); Chloride 109 mmol/L (98-107); Estimated GFR-MDRD 55; Glucose 88 mg/dL (70-105); Potassium 3.5 mmol/L (3.5-5.1); Sodium 140 mmol/L (136-145)
--- NOTE | 2019-04-16 06:42 | PDOC.CTH ---
Cardiology Progress Note - Subjective Feels better overall. Recent normal stress test - Objective Vital Signs Temp Pulse Resp BP Pulse Ox 04/16/19 03:50 98.3 F 102 H 12 124/79 98 04/16/19 00:00 98.2 F 97 16 123/75 98 04/15/19 20:19 97.6 F 91 18 118/87 98 Weight 144 lb 4.8 oz 04/14/19 04/15/19 04/16/19 06:59 06:59 06:59 Intake Total 200 840 Output Total 400 400 Balance -200 440 - Physical Examination General/Neuro: alert & oriented x3, NAD Neck: no JVD present Lungs: unlabored respirations Heart: PMI normal, RRR Abdomen: no HSM, NT/ND, soft Extremities: + femoral B - Telemetry Telemetry Rhythm: rrr - Labs Result Diagrams: 04/16/19 04:27 04/16/19 04:27 Troponin/CKMB CK-MB (CK-2) 1.1 ng/mL (0-6.6) 04/14/19 17:32 Troponin I 0.148 ng/mL (< 0.028) H 04/15/19 00:34 - Assessment/Plan CP Pericarditis vs pleurisy Stress test nl Recommend steroids since already needed for lupus May add NSAIDS vs colchicine if still present No other recommendations
[2019-04-16] MEDS ORDERED: Potassium Chloride 20 MEQ TAB PO SCH (08:00)
[2019-04-16] MEDS: Tacrolimus 1 MG CAP PO SCH (08:07)
[2019-04-16] MEDS: Loratadine 10 MG TAB PO SCH (08:08)
[2019-04-16] MEDS: Mycophenolate 250 MG CAP PO SCH (08:08)
[2019-04-16] MEDS: Amlodipine 10 MG TAB PO SCH (08:08)
[2019-04-16] MEDS: predniSONE 5 MG TAB PO SCH (08:08)
[2019-04-16] MEDS: Carvedilol 3.125 MG TAB PO SCH (08:08)
[2019-04-16] MEDS: Hydroxychloroquine Sulfate 200 MG TAB PO SCH (08:08)
[2019-04-16] MEDS: Morphine 4 MG/ML VIAL SLOW IVP PRN (08:37)
[2019-04-16] MEDS ORDERED: Furosemide 40 MG/4 ML VIAL SLOW IVP SCH (09:00)
[2019-04-16 15:40] VITALS: BP 121/72; TEMP 98.4
--- NOTE | 2019-04-17 04:44 | DIS ---
DATE OF ADMISSION: 04/14/2019 DATE OF DISCHARGE: 04/16/2019 DISCHARGE DIAGNOSES: 1. Chest pain, likely secondary to pericarditis. 2. Systemic lupus erythematosus. 3. Chronic kidney disease, stage 3, secondary to the lupus. 4. Chronic arthralgias. 5. Chronic steroid therapy. CONSULTATIONS: Dr. Freedman with cardiology service. PERTINENT LAB AND X-RAY FINDINGS: Creatinine ranged between 1.13 to 1.20. Estimated GFR ranged between 51 to 55. Troponin I ranged between 0.081 to 0.148. Serum beta-HCG negative. CBC showed a hemoglobin of 9.5, hematocrit 28, platelet count 171. Portable chest x-ray dated 04/14/2019, showed no acute cardiopulmonary process. CT of the abdomen and pelvis dated 04/15/2019, showed right adnexal cyst. Cardiolite stress test dated 04/15/2019, showed no evidence for reversible or fixed ischemia with calculated ejection fraction of 66%. 2D transthoracic echocardiogram dated 04/15/2019, showed ejection fraction of 55% to 60%. Diastolic dysfunction noted. HOSPITAL COURSE: The patient was initially admitted after presenting with chest pain. The patient underwent extensive evaluation including Cardiolite stress testing showing no evidence of reversible or fixed ischemia with calculated ejection fraction of 66%. 2D transthoracic echocardiogram was also was performed showing essentially negative findings with ejection fraction in the 55% to 60% range. The patient did receive IV Lasix after concern for edema with overall symptomatic improvement. The patient was also continued on prednisone 10 mg daily with additional recommendations for colchicine 0.3 mg daily. The patient was evaluated by the cardiology service with recommendations for general cardiac workup essentially unrevealing during the hospital course. Overall, the patient remained clinically stable during the hospital course with stable vital signs. I have examined the patient at the time of discharge and discussed followup instructions. The patient verbalized understanding and in agreement, ready for discharge on 04/16/2019. DISCHARGE MEDICATIONS: 1. Norvasc 10 mg p.o. daily. 2. Coreg 3.125 mg p.o. b.i.d. 3. Cetirizine 10 mg p.o. daily. 4. Cymbalta 20 mg p.o. daily. 5. Pepcid 20 mg p.o. daily. 6. Lasix 40 mg p.o. daily. 7. [place] 5/325 mg one tablet p.o. q.6 hours p.r.n. pain. 8. Plaquenil 200 mg p.o. b.i.d. 9. CellCept 1500 mg p.o. b.i.d. 10. Zofran 8 mg p.o. t.i.d. p.r.n. 11. Potassium chloride 20 mEq p.o. daily. 12. Prednisone 10 mg p.o. daily. 13. Prograf 1 mg p.o. b.i.d. 14. Colchicine 0.3 mg p.o. daily x7 days. FOLLOWUP: The patient may follow up with her primary care provider, Dr. Alexx Chacon. The patient will follow up with her primary housekeeper supervisor at [facility] in [place], [place] after discharge. CONDITION ON DISCHARGE: Stable. ACTIVITY: Ad-kamille. DIET: Regular. CODE STATUS: Full. DISPOSITION: To home, 04/16/2019. Job ID: [id number]
== END 2019-04-16 18:30 | disposition home or self-care (01) ==
LOC: ERS 17:17 → 2SW 22:36
PROVIDERS: ADMIT Hospitalist; ATTEND Hospitalist
DX: R07.89 Other chest pain (principal); M32.9 Systemic lupus erythematosus, unspecified; I31.9 Disease of pericardium, unspecified; N18.5 Chronic kidney disease, stage 5; R74.8 Abnormal levels of other serum enzymes; M25.50 Pain in unspecified joint; F41.9 Anxiety disorder, unspecified; I25.2 Old myocardial infarction; N85.8 Other specified noninflammatory disorders of uterus; Z79.52 Long term (current) use of systemic steroids; Z79.899 Other long term (current) drug therapy
CPT/HCPCS: 36415; 71045; 74176; 78452; 80048; 80053; 81003; 81015; 82553; 84484; 84703; 85025; 85730; 90471; 90670; 93005; 93017; 93306; 96374; 96375; 96376; A9500; G0009; G0378; J1940; J2270; J2405; J2785; J3010; J7507; J7512; J7517; Q0162